=== PATIENT | female | born 1965 | race Hispanic/Latino ===

== ENCOUNTER 2018-05-28 16:29 | Observation (INO) | payer OTHER ==
[2018-05-28 17:15] LABS: Absolute Lymphocytes (CBC) 1.5 K/uL (0.7-4.9); Absolute Monocytes 0.9 K/uL (0.1-1.3); Absolute Neutrophil 7.2 K/uL (1.8-8.0); Basophils % 0.4 % (0-1.3); Eosinophils % 0.5 % (0-4.4); Lymphocytes % 15.5 % (15.3-44.8); MCH 28.6 pg (27.0-35.0); MCV 85.2 fL (80-100); MPV 8.4 fL (7.6-11.3); Monocytes % 9.3 % (3.3-12.3); RBC Red Blood Cell Count 5.28 M/uL (3.86-4.86)
[2018-05-28 17:19] LABS: Protime INR 1.01
[2018-05-28 17:34] LABS: ALT/SGPT 29 U/L (12-78); AST/SGOT 21 U/L (15-37); Albumin 3.9 g/dL (3.4-5.0); Alkaline Phosphatase 77 U/L (45-117); BUN Blood Urea Nitrogen 13 mg/dL (7-18); Bicarbonate 27 mmol/L (21-32); Bilirubin Direct 0.1 mg/dL (0-0.2); Bilirubin Total 0.5 mg/dL (0.2-1.0); Glucose Level 113 mg/dL (74-106); Magnesium 2.3 mg/dL (1.8-2.4); NT PRO-BNP 86 pg/mL (<125); Potassium 3.8 mmol/L (3.5-5.1); Protein, Total 7.6 g/dL (6.4-8.2); Sodium Level 141 mmol/L (136-145); Troponin (Emerg Dept Use Only) < 0.02 ng/mL (0.0-0.045)
--- NOTE | 2018-05-28 17:53 | RAD REPORT ---
EXAM DESCRIPTION: RAD - Chest Single View - 05/28/2018 5:34 pm CLINICAL HISTORY: COUGH Chest pain. COMPARISON: CHEST PA AND LAT 2 VIEW dated 05/05/2015; ABDOMEN 1 VIEW KUB dated 12/17/2014; CHEST PA A ND LAT 2 VIEW dated 09/18/2012 FINDINGS: Portable technique limits examination quality. The lungs are grossly clear. The heart is normal in size. No displaced fractures. IMPRESSION: No acute intrathoracic process suspected.
--- NOTE | 2018-05-28 17:54 | EDPHYS ---
Physician Documentation [facility] Name: Danita Yañez Age: 53 yrs Sex: Female : 1965 Arrival Date: 05/28/2018 Time: 16:34 Bed 6 Private MD: Paul Mcmahon ED Physician Spencer Warner HPI: 05/28 17:44 This 53 yrs old Female presents to ER via Ambulatory with complaints of High salas Blood Pressure. 17:44 The patient has elevated blood pressure and discovered this at home, at a physician's salas office. Onset: The symptoms/episode began/occurred 2 day(s) ago. Modifying factors: The symptoms are aggravated by activity, The symptoms are alleviated by remaining still. Severity of symptoms: At its worst the blood pressure was mild, moderate, in the emergency department the blood pressure is improved. The patient has not experienced similar symptoms in the past. CHILD CARE: 17:04 LMP N/A - Post-menopause bp Historical: - Allergies: 16:43 Ibuprofen; sv - Home Meds: 16:43 Clonidine Oral Q6H prn [Active]; Metoprolol Tartrate Oral 2 times per day [Active]; sv levothyroxine 75 mcg tab 1 tab once daily [Active]; - PMHx: 16:43 Thyroid problem; sv - PSHx: 16:43 Hysterectomy; sv - Immunization history:: Flu vaccine is up to date. - Social history:: Smoking status: Patient/guardian denies using tobacco. - Ebola Screening: : No symptoms or risks identified at this time. - Family history:: not pertinent. ROS: 17:44 Constitutional: Negative for fever, chills, and weight loss, Eyes: Negative for injury, salas pain, redness, and discharge, ENT: Negative for injury, pain, and discharge, Neck: Negative for injury, pain, and swelling, Respiratory: Negative for shortness of breath, cough, wheezing, and pleuritic chest pain, Abdomen/GI: Negative for abdominal pain, nausea, vomiting, diarrhea, and constipation, Back: Negative for injury and pain, : Negative for injury, bleeding, discharge, and swelling, MS/Extremity: Negative for injury and deformity, Skin: Negative for injury, rash, and discoloration, Neuro: Negative for headache, weakness, numbness, tingling, and seizure, Psych: Negative for depression, anxiety, suicide ideation, homicidal ideation, and hallucinations, Allergy/Immunology: Negative for hives, rash, and allergies, Endocrine: Negative for neck swelling, polydipsia, polyuria, polyphagia, and marked weight changes, Hematologic/Lymphatic: Negative for swollen nodes, abnormal bleeding, and unusual bruising. 17:44 Cardiovascular: Positive for chest pain. Exam: 17:44 Constitutional: This is a well developed, well nourished patient who is awake, alert, salas and in no acute distress. Head/Face: Normocephalic, atraumatic. Eyes: Pupils equal round and reactive to light, extra-ocular motions intact. Lids and lashes normal. Conjunctiva and sclera are non-icteric and not injected. Cornea within normal limits. Periorbital areas with no swelling, redness, or edema. ENT: Nares patent. No nasal discharge, no septal abnormalities noted. Tympanic membranes are normal and external auditory canals are clear. Oropharynx with no redness, swelling, or masses, exudates, or evidence of obstruction, uvula midline. Mucous membranes moist. Neck: Trachea midline, no thyromegaly or masses palpated, and no cervical lymphadenopathy. Supple, full range of motion without nuchal rigidity, or vertebral point tenderness. No Meningismus. Chest/axilla: Normal chest wall appearance and motion. Nontender with no deformity. No lesions are appreciated. Cardiovascular: Regular rate and rhythm with a normal S1 and S2. No gallops, murmurs, or rubs. Normal PMI, no JVD. No pulse deficits. Respiratory: Lungs have equal breath sounds bilaterally, clear to auscultation and percussion. No rales, rhonchi or wheezes noted. No increased work of breathing, no retractions or nasal flaring. Abdomen/GI: Soft, non-tender, with normal bowel sounds. No distension or tympany. No guarding or rebound. No evidence of tenderness throughout. Back: No spinal tenderness. No costovertebral tenderness. Full range of motion. Skin: Warm, dry with normal turgor. Normal color with no rashes, no lesions, and no evidence of cellulitis. MS/ Extremity: Pulses equal, no cyanosis. Neurovascular intact. Full, normal range of motion. Neuro: Awake and alert, GCS 15, oriented to person, place, time, and situation. Cranial nerves II-XII grossly intact. Motor strength 5/5 in all extremities. Sensory grossly intact. Cerebellar exam normal. Normal gait. Psych: Awake, alert, with orientation to person, place and time. Behavior, mood, and affect are within normal limits. 17:44 Musculoskeletal/extremity: DVT Exam: No signs of deep vein thrombosis. no pain, no swelling, no tenderness, negative Homans' sign noted on exam, no appreciated bluish discoloration, no erythema, no increased warmth. Vital Signs: 16:43 BP 126 / 59; Pulse 80; Resp 18; Pulse Ox 97% ; Weight 97.52 kg; Height 5 ft. 7 in. sv (170.18 cm); Pain 0/10; 16:50 BP 113 / 60; Pulse 74; Resp 16; Pulse Ox 95% ; bp 17:05 BP 104 / 62; Pulse 73; Resp 16; Pulse Ox 95% ; bp 19:30 BP 130 / 98; Pulse 75; Resp 17; Temp 98.9(O); Pulse Ox 99% on R/A; Pain 0/10; rr5 16:43 Body Mass Index 33.67 (97.52 kg, 170.18 cm) sv MDM: 16:48 Patient medically screened. [facility] 17:47 Data reviewed: vital signs, nurses notes, lab test result(s), EKG, radiologic studies, salas plain films. 05/28 16:48 Order name: Basic Metabolic Panel [facility] 05/28 16:48 Order name: CBC with Diff [facility] 05/28 16:48 Order name: LFT's [facility] 05/28 16:48 Order name: Magnesium [facility] 05/28 16:48 Order name: NT PRO-BNP [facility] 05/28 16:48 Order name: PT-INR [facility] 05/28 16:48 Order name: Troponin (emerg Dept Use Only) [facility] 05/28 17:16 Order name: CBC with Automated Diff; Complete Time: 17:43 [facility] 05/28 17:21 Order name: Urine Dipstick--Ancillary (enter results) 05/28 17:22 Order name: Protime (+INR); Complete Time: 17:43 [facility] 05/28 17:35 Order name: Basic Metabolic Panel; Complete Time: 17:43 [facility] 05/28 17:35 Order name: Liver (Hepatic) Function; Complete Time: 17:43 [facility] 05/28 17:35 Order name: Troponin (Emerg Dept Use Only); Complete Time: 17:43 [facility] 05/28 17:35 Order name: NT PRO-BNP; Complete Time: 17:43 [facility] 05/28 16:48 Order name: XRAY Chest (1 view) [facility] 05/28 16:48 Order name: EKG; Complete Time: 16:49 [facility] 05/28 16:48 Order name: Cardiac monitoring; Complete Time: 17:04 [facility] 05/28 16:48 Order name: EKG - Nurse/Tech; Complete Time: 16:54 [facility] 05/28 16:48 Order name: IV Saline Lock; Complete Time: 17:04 [facility] 05/28 16:48 Order name: Labs collected and sent; Complete Time: 17:04 [facility] 05/28 16:48 Order name: O2 Per Protocol; Complete Time: 17:04 [facility] 05/28 17:35 Order name: Magnesium; Complete Time: 17:43 [facility] 05/28 17:43 Order name: TSH [facility] 05/28 17:43 Order name: D-Dimer [facility] 05/28 17:54 Order name: RAD; Complete Time: 18:07 [facility] 05/28 18:26 Order name: D-Dimer [facility] 05/28 18:35 Order name: Urine Dipstick-Ancillary [facility] 05/28 18:45 Order name: Thyroid Stimulating Hormone [facility] 05/28 16:48 Order name: O2 Sat Monitoring; Complete Time: 17:04 [facility] 05/28 16:51 Order name: Urine Dipstick-Ancillary (obtain specimen); Complete Time: 17:04 [facility] Administered Medications: 18:15 Drug: Pepcid 20 mg Route: IVP; Site: right forearm; bp 19:45 Follow up: Response: No adverse reaction rr5 18:16 Drug: Aspirin 162 mg Route: PO; bp 19:45 Follow up: Response: No adverse reaction rr5 Disposition: 05/28/18 17:52 Hospitalization ordered by rEwin Gomez for Observation. Preliminary diagnosis is Essential (primary) hypertension. - Bed requested for Telemetry/MedSurg (observation). - Status is Observation. rr5 - Condition is Stable. - Problem is new. - Symptoms have improved. UTI on Admission? No Signatures: Dispatcher [employer] EDWI Karmen Keller RN Spencer Blake MD MD cha Peltier, Brian, RN Marty Calhoun RN RN rr5 Hanna Burkett ar5 Corrections: (The following items were deleted from the chart) 19:25 17:52 Hospitalization Ordered by Erwin Gomez MD for Observation. Preliminary diagnosis ar5 is Essential (primary) hypertension. Bed requested for Telemetry/MedSurg (observation). Status is Observation. Condition is Stable. Problem is new. Symptoms have improved. UTI on Admission? No. salas 20:03 19:25 05/28/2018 17:52 Hospitalization Ordered by Erwin Gomez MD for Observation. rr5 Preliminary diagnosis is Essential (primary) hypertension. Bed requested for Telemetry/MedSurg (observation). Status is Observation. Condition is Stable. Problem is new. Symptoms have improved. UTI on Admission? No. ar5
--- NOTE | 2018-05-28 17:54 | ER ---
Nurse's Notes [facility] Name: Danita Yañez Age: 53 yrs Sex: Female : 1965 Arrival Date: 05/28/2018 Time: 16:34 Bed 6 Private MD: Paul Mcmahon Diagnosis: Essential (primary) hypertension Presentation: 05/28 16:40 Presenting complaint: Patient states: newly dx with HTN last week in the ER and then sv saw her PCP and was prescribed Metoprolol and Clonidine. Pt reports SBP over 200. Transition of care: patient was not received from another setting of care. Onset of symptoms was May 28, 2018. Care prior to arrival: None. 16:40 Method Of Arrival: Ambulatory sv 16:40 Acuity: CAESAR 3 sv 19:15 Risk Assessment: Do you want to hurt yourself or someone else? Patient reports no rr5 desire to harm self or others. Initial Sepsis Screen: Does the patient have a suspected source of infection? No. Patient's initial sepsis screen is negative. 19:15 Initial Sepsis Screen: Does the patient meet any 2 criteria? No. Patient's initial rr5 sepsis screen is negative. Triage Assessment: 16:44 General: Appears in no apparent distress. comfortable, Behavior is calm, cooperative, sv appropriate for age. Pain: Denies pain. Neuro: Level of Consciousness is awake, alert, obeys commands, Oriented to person, place, time, situation, Moves all extremities. Full function Gait is steady, Speech is normal. Respiratory: Respiratory effort is even, unlabored, Respiratory pattern is regular, symmetrical. 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 - Social history:: Smoking status: Patient/guardian denies using tobacco. - Ebola Screening: : No symptoms or risks identified at this time. - Family history:: not pertinent. Screenin:00 Abuse screen: Denies threats or abuse. Denies injuries from another. Nutritional bp screening: No deficits noted. Tuberculosis screening: No symptoms or risk factors identified. Fall Risk None identified. Assessment: 17:00 General: Appears in no apparent distress. comfortable, obese, Behavior is cooperative, bp appropriate for age, anxious, PT DIRECTED TO ER BY PCP 2/2 MX CALLS TO PCP OFFICE FOR SUBJECTIVE HYPERTENSION. NO OBJECTIVE FINDINGS. Pain: Denies pain. Neuro: Level of Consciousness is awake, alert, obeys commands, Oriented to person, place, time, situation, Appropriate for age. Cardiovascular: No deficits noted. Respiratory: Airway is patent Respiratory effort is even, unlabored, Respiratory pattern is regular, symmetrical. GI: No signs and/or symptoms were reported involving the gastrointestinal system. : No signs and/or symptoms were reported regarding the genitourinary system. EENT: No deficits noted. Derm: No deficits noted. Musculoskeletal: Circulation, motion, and sensation intact. Range of motion: intact in all extremities. 19:15 General: Appears in no apparent distress. comfortable, Behavior is cooperative, rr5 appropriate for age, anxious. 19:15 Pain: Denies pain. Neuro: Level of Consciousness is awake, alert, obeys commands, rr5 Oriented to person, place, time, situation, Appropriate for age. Cardiovascular: No deficits noted. Cardiovascular: Capillary refill < 3 seconds Patient's skin is warm and dry. Respiratory: Airway is patent Respiratory effort is even, unlabored, Respiratory pattern is regular, symmetrical. GI: Abdomen is round. : No signs and/or symptoms were reported regarding the genitourinary system. EENT: No signs and/or symptoms were reported regarding the EENT system. Derm: Skin is intact, Skin is dry, Skin is pink, warm \T\ dry. Skin temperature is warm. Musculoskeletal: Circulation, motion, and sensation intact. Capillary refill < 3 seconds, Range of motion: intact in all extremities. Vital Signs: 16:43 BP 126 / 59; Pulse 80; Resp 18; Pulse Ox 97% ; Weight 97.52 kg; Height 5 ft. 7 in. sv (170.18 cm); Pain 0/10; 16:50 BP 113 / 60; Pulse 74; Resp 16; Pulse Ox 95% ; bp 17:05 BP 104 / 62; Pulse 73; Resp 16; Pulse Ox 95% ; bp 19:30 BP 130 / 98; Pulse 75; Resp 17; Temp 98.9(O); Pulse Ox 99% on R/A; Pain 0/10; rr5 16:43 Body Mass Index 33.67 (97.52 kg, 170.18 cm) ED Course: 16:34 Patient arrived in ED. mr 16:35 Paul Mcmahon MD is Private Physician. mr 16:42 Triage completed. sv 16:44 Arm band placed on. sv 16:45 Paul Wells, RN is Primary Nurse. bp 16:47 Spencer Warner MD is Attending Physician. [facility] 16:57 EKG done, by nuclear test technician. reviewed by Spencer Warner MD. sm3 17:00 Patient has correct armband on for positive identification. Bed in low position. Call bp light in reach. Side rails up X2. Adult w/ patient. 17:00 Inserted saline lock: 20 gauge in right wrist, using aseptic technique. Blood collected.bp 17:49 Erwin Gomez MD is Hospitalizing Provider. salas 19:28 Kristin Keys, RN is Primary Nurse. lp1 19:34 No provider procedures requiring assistance completed. Patient admitted, IV remains in rr5 place. intact. Administered Medications: 18:15 Drug: Pepcid 20 mg Route: IVP; Site: right forearm; bp 19:45 Follow up: Response: No adverse reaction rr5 18:16 Drug: Aspirin 162 mg Route: PO; bp 19:45 Follow up: Response: No adverse reaction rr5 Outcome: 17:52 Decision to Hospitalize by Provider. salas 19:43 Admitted to Tele accompanied by tech, via wheelchair, Report called to [employer] [facility] rr5 19:43 Condition: stable 19:43 Instructed on the need for admit. 20:03 Patient left the ED. rr5 Signatures: Karmen Keller, RN Spencer Blake MD MD cha Rivera, Mary mr Kristin Keys, UNIQUE RN lp1 Paul Wells, Diana Monet RN [facility] Marty Alvarez RN RN rr5 Corrections: (The following items were deleted from the chart) 16:44 16:40 Acuity: CAESAR 2 [facility]
[2018-05-28] MEDS ORDERED: FAMOTIDINE 20 MG/2 ML VIAL IV ONE (18:06)
[2018-05-28] MEDS ORDERED: ASPIRIN 81 MG CHEWABLE TABLET ONE (18:06)
[2018-05-28 18:35] LABS: Urine Blood 1+ (NEG); Urine Glucose NEGATIVE (NEG); Urine Protein NEGATIVE (NEG)
[2018-05-28] MEDS ORDERED: ONDANSETRON 4 MG/2 ML VIAL IV PRN (19:59)
[2018-05-28 20:24] VITALS: BMI 33.5
--- NOTE | 2018-05-28 21:32 | P.HP ---
Certification for Inpatient Patient admitted to: Observation With expected LOS: <2 Midnights Practitioner: I am a practitioner with admitting privileges, knowledge of patient current condition, hospital course, and medical plan of care. Services: Services provided to patient in accordance with Admission requirements found in Title 42 Section 412.3 of the Code of Federal Regulations Patient History Date of Service: 05/28/18 Primary Care Provider: Dr. Mcmahon Reason for admission: High Blood pressure with chest discomfort History of Present Illness: This is a 53 yr old female with hx of thyroid disease admitted for elevated blood pressure. Patient states that she has a history of BP being elevated in the past, though she did not require any medications as she made lifestlye changes and quit energy drinks. For the past 1 week though, her BP has been elevated and this is her 3rd ER visit in the past week for elevated BP, WHATLEY and chest discomfort. She did visit her PCP after her 2nd ER visit (approx 4 daus ago) and she was started on clonidine and metoprolol. Per patient, she did start the medication but it has not been helping. She denies being on any blood pressure medications prior to this. In the ER, patient had elevated BP initially. At the time of my exam, she was AOX3, in no acute distress and her BP was 128/89. She denied any WHATLEY, chest discomfort at this time, no sob, dizziness, vision changes, GI or complaints. Allergies ibuprofen Allergy (Verified 05/28/18 21:16) Itching/Hives/Rash - Social History Smoking Status: Never smoker Alcohol use: Yes Review of Systems General: Unremarkable Eyes: Unremarkable ENT: Unremarkable Respiratory: Unremarkable Cardiovascular: Chest Pain, Palpitations, As per HPI Gastrointestinal: Unremarkable Genitourinary: Unremarkable Musculoskeletal: Unremarkable Integumentary: Unremarkable Neurological: As per HPI Lymphatics: Unremarkable Physical Examination - Vital Signs Temperature: 98.6 F Blood Pressure: 135/85 Pulse: 69 Respirations: 18 Pulse Ox (%): 96 - Physical Exam General: Alert, In no apparent distress, Oriented x3 HEENT: Atraumatic, PERRLA, Mucous membr. moist/pink, EOMI, Sclerae nonicteric Neck: Supple, 2+ carotid pulse no bruit, No LAD, Without JVD or thyroid abnormality Respiratory: Clear to auscultation bilaterally, Normal air movement Cardiovascular: Regular rate/rhythm, Normal S1 S2 Gastrointestinal: Normal bowel sounds, No tenderness Musculoskeletal: No tenderness Integumentary: No rashes Neurological: Normal speech, Normal strength at 5/5 x4 extr, Normal tone, Normal affect - Studies Laboratory Data (last 24 hrs) 05/28/18 16:55: PT 11.9, INR 1.01 05/28/18 16:55: WBC 9.7, Hgb 15.1 H, Hct 45.0, Plt Count 253 05/28/18 16:55: Sodium 141, Potassium 3.8, BUN 13, Creatinine 0.80, Glucose 113 H, Magnesium 2.3, Total Bilirubin 0.5, AST 21, ALT 29, Alkaline Phosphatase 77 Assessment and Plan - Plan This is a 53 yr old female with: Hypertensive urgency: BP now stable without any medications. She was recently started on clonidine and metoprolol at PCP office. Will monitor and may need to add medication though will likely change to an ACEi ( low dose lisinopril) Hydralazine prn SBP>160 or DBP>100 Trend troponins (1st set negative w/ no EKG changes) Cardiology consulted Hypothyroid Will restart home medication once reconciled. DVT prophylaxis: Lovenox GI prophylaxis: Not needed Diet: Heart healthy/Renal Disposition: OBS on floor w/ tele. Pending symptomatic improvement. Discharge Plan: Home Plan to discharge in: 48 Hours - Advance Directives Does patient have a Living Will: No Does patient have a Durable POA for Healthcare: No Physician Review: Patient Assessed, Agree with Above Assessment and Plan Time Spent Managing Pts Care (In Minutes): 45
--- NOTE | 2018-05-28 22:03 | EKG ---
Test Date: 2018-05-28 Test Time: 16:54:35 Supervisor Landscape: DANITA MEASUREMENT RESULTS: Intervals: Rate: 73 IA: 164 QRSD: 104 QT: 372 QTc: 409 [place]: P: 44 IA: 164 QRS: -37 T: 37 INTERPRETIVE STATEMENTS: Normal sinus rhythm Left axis deviation Abnormal ECG No previous ECG available for comparison Electronically Signed On 05-28-18 22:03:00 PATIENT INTAKE REPRESENTATIVE by Dash Casey
[2018-05-29 05:09] LABS: Absolute Lymphocytes (CBC) 2.6 K/uL (0.7-4.9); Absolute Monocytes 0.8 K/uL (0.1-1.3); Absolute Neutrophil 4.5 K/uL (1.8-8.0); Basophils % 0.6 % (0-1.3); Eosinophils % 1.3 % (0-4.4); Hematocrit 42.5 % (36.0-45.0); Lymphocytes % 32.1 % (15.3-44.8); MCH 28.8 pg (27.0-35.0); MCV 84.8 fL (80-100); MPV 8.1 fL (7.6-11.3); Monocytes % 10.1 % (3.3-12.3); RBC Red Blood Cell Count 5.01 M/uL (3.86-4.86)
[2018-05-29 05:23] LABS: Albumin 3.5 g/dL (3.4-5.0); Bilirubin Total 0.4 mg/dL (0.2-1.0); Phosphorus 4.1 mg/dL (2.5-4.9); Potassium 4.5 mmol/L (3.5-5.1); Protein, Total 6.9 g/dL (6.4-8.2)
--- NOTE | 2018-05-29 10:48 | P.PN ---
Subjective Date of Service: 05/29/18 Primary Care Provider: Dr. Mcmahon Chief Complaint: High Blood pressure with chest discomfort Subjective: No new changes, No C/O voiced, Improving Patient seen and examined at bedside. No family at bedside. Chart reviewed and Case discussed with nursing staff. Patient reports having a good night, chest pain has resolved. She is doing much better. Blood pressures remained stable overnight without any medications. No new concerns or complaints this morning Review of Systems As noted Physical Examination - Vital Signs Temperature: 97.0 F Blood Pressure: 116/56 Pulse: 59 Respirations: 18 Pulse Ox (%): 98 - Physical Exam General: Alert, In no apparent distress, Oriented x3 HEENT: Atraumatic, PERRLA, EOMI Neck: Supple, JVD not distended Respiratory: Clear to auscultation bilaterally, Normal air movement Cardiovascular: Regular rate/rhythm, Normal S1 S2 Gastrointestinal: Normal bowel sounds, No tenderness Musculoskeletal: No tenderness Integumentary: No rashes Neurological: Normal speech, Normal tone, Normal affect Lymphatics: No axilla or inguinal lymphadenopathy - Studies Laboratory Data (last 24 hrs) 05/28/18 16:55: PT 11.9, INR 1.01 05/28/18 16:55: WBC 9.7, Hgb 15.1 H, Hct 45.0, Plt Count 253 05/28/18 16:55: Sodium 141, Potassium 3.8, BUN 13, Creatinine 0.80, Glucose 113 H, Magnesium 2.3, Total Bilirubin 0.5, AST 21, ALT 29, Alkaline Phosphatase 77 Assessment And Plan - Plan This is a 53 yr old female with: Hypertensive urgency: BP now stable without any medications. She was recently started on clonidine and metoprolol at PCP office. Last dosage was 4:00 p.m. yesterday, monitor blood pressure for any rebound affects. Will monitor and may need to add medication though will likely change to an ACEi (low dose lisinopril) Hydralazine prn SBP>160 or DBP>100 Renal Doppler ordered to evaluate for possible secondary causes of elevated blood pressures. Chest pain, rule out Cardiology consulted. Recommendations appreciated. Pending stress test tomorrow. Hypothyroid Will restart home medication, levothyroxine at 75mcg. DVT prophylaxis: Lovenox GI prophylaxis: Not needed Diet: Heart healthy/Renal Disposition: OBS on floor w/ tele. Pending symptomatic improvement. Pending stress test tomorrow. If negative, likely discharge tomorrow. Discharge Plan: Home Physician Review: Patient Assessed, Agree with Above Assessment and Plan Time Spent Managing PTS Care (In Minutes): 35
[2018-05-29] MEDS: ENOXAPARIN 40 MG/0.4 ML SQ SCH (11:44)
[2018-05-29] MEDS: ACETAMINOPHEN 500 MG TAB PO PRN ×2 (14:03→18:42)
--- NOTE | 2018-05-29 20:09 | CON ---
Date of Consultation: 05/29/2018 Reason For Consultation: Hypertensive crisis. History Of Present Illness: Ms. Yañez is a 53-year-old woman with new onset hypertension, has a history of hypothyroidism for which she takes Synthroid medication. She was recently found to be miya y hypertensive and was started on clonidine and metoprolol. Comes back to the emergency room with a blood pressure of 202/110. No cardiac symptoms. No headache. No visual changes. No stroke-like sy mptoms. Denied PND, orthopnea, pedal edema, palpitations, or syncope. Past Medical History: Includes hypertension and hypothyroidism. Allergies: SHE IS ALLERGIC TO IBUPROFEN. Review of Systems: Negative. Social History: Negative for tobacco, drugs, or alcohol use. She does use some caffeine. Medications: Presently include clonidine, metoprolol, and Synthroid. Physical Examination: Vital Signs: Stable. Afebrile. HEENT: Negative. Neck: Supple. No bruit. Chest: Clear to auscultation and percussion. Cardiac: Regular rhythm and rate with S4 gallops. No murmurs or rubs. Abdomen: Benign. Extremities: Revealed no clubbing, cyanosis, or edema. Diagnostic Data: All normal. Impression And Plan: Hypertensive crisis, unknown etiology. Thyroid is controlled. I agree with cl onidine p.r.n. I think the metoprolol should be on a regular basis. We should probably put her on H yzaar and Norvasc in addition to those, and I think this will control her pressure. I would like her to get an echocardiogram and a renal Doppler and a Lexiscan, and we will see what these show before making further decisions. JONEL/KATHRYN Voice ID: [id number] Report ID: [id number]
--- NOTE | 2018-05-29 20:36 | RAD REPORT ---
EXAM DESCRIPTION: US - Abdomen Pelvis Scan US - 05/29/2018 8:27 pm CLINICAL HISTORY: Hypertension COMPARISON: None FINDINGS: Right kidney measures 11 centimeters with a normal echotexture Left kidney measures 11 centimeters with a normal echotexture Hydronephrosis is not seen The velocity of the right renal artery 125 centimeters/seconds. The velocity of the left renal artery 110 centimeters/seconds. Renal artery/aorta ratios within normal limits IMPRESSION: No sonographic evidence of renal arterial hypertension
[2018-05-30 06:29] LABS: Absolute Lymphocytes (CBC) 2.6 K/uL (0.7-4.9); Absolute Monocytes 0.8 K/uL (0.1-1.3); Basophils % 0.4 % (0-1.3); Eosinophils % 1.4 % (0-4.4); Hematocrit 43.5 % (36.0-45.0); Lymphocytes % 30.7 % (15.3-44.8); MCH 28.5 pg (27.0-35.0); MCV 84.5 fL (80-100); MPV 8.3 fL (7.6-11.3); Monocytes % 9.5 % (3.3-12.3); RBC Red Blood Cell Count 5.14 M/uL (3.86-4.86)
[2018-05-30] MEDS ORDERED: LEVOTHYROXINE SOD 0.075 MG TAB PO SCH (06:30)
[2018-05-30 06:45] LABS: Albumin 3.6 g/dL (3.4-5.0); Bilirubin Total 0.6 mg/dL (0.2-1.0); Potassium 3.7 mmol/L (3.5-5.1)
--- NOTE | 2018-05-30 07:33 | ECHO ---
HEIGHT: 5 ft 7 in WEIGHT: 213 lb 14.4 oz DATE OF STUDY: 05/29/[address]: Spencer aWrner MD 2-DIMENSIONAL: YES M.MODE: YES DOPPLER: YES COLOR FLOW: YES TDS: PORTABLE: DEFINITY: BUBBLE STUDY: DIAGNOSIS: CHEST PAIN CARDIAC HISTORY: CATHERIZATION: NO SURGERY: NO PROSTHETIC VALVE: NO PACEMAKER: NO MEASUREMENTS (cm) DIASTOLIC (NORMALS) SYSTOLIC (NORMALS) IVSd 1.1 (0.6-1.2) LA Diam 3.1 (1.9-4.0) LVEF 63% LVIDd 3.2 (3.5-5.7) LVIDs 2.1 (2.0-3.5) %FS 33% LVPWd 1.1 (0.6-1.2) Ao Diam 2.9 (2.0-3.7) 2 DIMENSIONAL ASSESSMENT: RIGHT ATRIUM: NORMAL LEFT ATRIUM: NORMAL RIGHT VENTRICLE: NORMAL LEFT VENTRICLE: NORMAL TRICUSPID VALVE: NORMAL MITRAL VALVE: NORMAL PULMONIC VALVE: NORMAL AORTIC VALVE: NORMAL PERICARDIAL EFFUSION: NONE AORTIC ROOT: NORMAL LEFT VENTRICULAR WALL MOTION: NORMAL DOPPLER/COLOR FLOW: NORMAL COMMENTS: NORMAL 2-DIMENSIONAL ECHOCARDIOGRAM WITH DOPPLER. NO WALL MOTION ABNORMALITY. NO EFFUSION. TECHNOLOGIST: SIM SOTELO
[2018-05-30] MEDS ORDERED: REGADENOSON 0.4 MG/5 ML SYR IV ONE (07:47)
--- NOTE | 2018-05-30 09:32 | RAD REPORT ---
EXAM DESCRIPTION: NM - Rest Stress Cardiac Imaging - 05/30/2018 9:21 am CLINICAL HISTORY: Chest pain. COMPARISON: None. TECHNIQUE: The patient was administered approximately 10mCi of Tc 99m Sestamibi prior to resting SPE CT imaging of the heart. The patient was then administered approximately 30 mCi of Tc 99m Sestamibi f ollowing exercise or pharmacologic stress. Multiplanar SPECT images were reviewed. FINDINGS: Small to moderate area of diminished radiotracer uptake involves the inferior left ventri cular myocardium on rest and stress images. The left ventricular ejection fraction equals 60% IMPRESSION: Small to moderate apparent fixed perfusion defect involving the inferior left ventricula r myocardium probably is secondary to attenuation from the diaphragm. No evidence of stress-induced ischemia
[2018-05-30 10:56] VITALS: BP 131/80; TEMP 98
--- NOTE | 2018-05-30 10:57 | TREADPHA ---
DX: CHEST PAIN Date of Study: 05/30/2018 Ht: 5 7 Wt: 213 lb 14.4 oz Consulting Physician: ALESHA MEDICATIONS: TYLENOL, LOVENOX, SYTHROID, ZOFRAN, LEXISCAN. HISTORY: 53 YEAR OLD FEMALE WITH COMPLAINTS OF CHEST PAIN. MEDICAL HISTORY: THYTROID PROBLEM. PHYSICIAL EXAMINATION: RESTING B.P.: 123/69 RESTING H.R.: 66 RESTING EKG: NORMAL PROTOCOL: LEXISCAN EXERCISE TIME: 3:30 B.P. AT PEAK STRESS: 122/70 IMPRESSION: LEXISCAN INJECTED, CARDIOLITE INJECTED PER PROTOCOL. SEE NUCLEAR MEDICINE REPORT. NO SUPRAVENTRICULAR TACHYCARDIA. NO VENTRICULAR TACHYCARDIA. NO PREMATURE VENTRICULAR COMPLEXES. DENIED CHEST PAIN. NON-DIAGNOSTIC ELECTROCARDIOGRAM WITH LEXISCAN STRESS.
[2018-05-30] MEDS: ACETAMINOPHEN 500 MG TAB PO PRN (10:59)
[2018-05-30] MEDS: ENOXAPARIN 40 MG/0.4 ML SQ SCH (11:00)
--- NOTE | 2018-05-30 16:19 | P.DS ---
Admission Date: 05/28/18 Discharge Date: 05/30/18 Primary Care Provider: Dr. Mcmahon Disposition: ROUTINE DISCHARGE Discharge Condition: GOOD Reason for Admission: High Blood pressure with chest discomfort Consultations: Cardiology Procedures: 05/29/2018: Echocardiogram, normal 05/29/2018: Renal ultrasound, normal 05/30/2018: Stress test, negative Brief History of Present Illness: This is a 53 yr old female with hx of thyroid disease admitted for elevated blood pressure. Patient states that she has a history of BP being elevated in the past, though she did not require any medications as she made lifestlye changes and quit energy drinks. For the past 1 week though, her BP has been elevated and this is her 3rd ER visit in the past week for elevated BP, WHATLEY and chest discomfort. She did visit her PCP after her 2nd ER visit (approx 4 daus ago) and she was started on clonidine and metoprolol. Per patient, she did start the medication but it has not been helping. She denies being on any blood pressure medications prior to this. In the ER, patient had elevated BP initially. At the time of my exam, she was AOX3, in no acute distress and her BP was 128/89. She denied any WHATLEY, chest discomfort at this time, no sob, dizziness, vision changes, GI or complaints. Hospital Course: Hypertensive urgency: Blood pressure remained stable throughout the hospitalization, the low normal and. Cardiology was consulted. Echocardiogram was done, which was normal. Stress test was done, which was normal. She did not require any blood pressure medications throughout the hospitalization. Renal Doppler was also done, which was negative for any abnormalities. Discharge instructions: Recommended to discontinue clonidine and metoprolol. Prescription for lisinopril/hydrochlorothiazide 10-12.5 mg sent to pharmacy. Advised to check blood pressure twice a day for the next week. Advised not to take medication if blood pressure below 100/60 or symptomatic. Record blood pressures on a log, take to primary care physician appointment in 1 week to make further recommendations/evaluation for blood pressure medications. It seems that blood pressure and heart rate may be related to anxiety. She does seem to have some anxiety and wants to check her blood pressure heart rate every so often, which makes her more anxious. Educated patient on how to check blood pressure and when. She was instructed to follow up with her primary care physician in 1 week with her blood pressure logs. Chest pain, rule out Cardiology workup negative. Chest pain resolved Hypothyroid Stable on levothyroxine 75 mcg. No changes made to medication at time of discharge. Vital Signs/Physical Exam: Temp Pulse Resp BP Pulse Ox 98.0 F 80 22 H 131/80 98 05/30/18 12:00 05/30/18 12:00 05/30/18 12:00 05/30/18 12:00 05/30/18 12:00 General: Alert, In no apparent distress, Oriented x3 HEENT: Atraumatic, PERRLA, EOMI Neck: Supple, JVD not distended Respiratory: Clear to auscultation bilaterally, Normal air movement Cardiovascular: Regular rate/rhythm, Normal S1 S2 Gastrointestinal: Normal bowel sounds, No tenderness Musculoskeletal: No tenderness Integumentary: No rashes Neurological: Normal speech, Normal tone, Normal affect Lymphatics: No axilla or inguinal lymphadenopathy Laboratory Data at Discharge: WBC 8.6 K/uL (4.3-10.9) 05/30/18 05:39 Hgb 14.7 g/dL (12.0-15.0) 05/30/18 05:39 Hct 43.5 % (36.0-45.0) 05/30/18 05:39 Plt Count 257 K/uL (152-406) 05/30/18 05:39 PT 11.9 SECONDS (9.5-12.5) 05/28/18 16:55 INR 1.01 05/28/18 16:55 Sodium 142 mmol/L (136-145) 05/30/18 05:39 Potassium 3.7 mmol/L (3.5-5.1) 05/30/18 05:39 BUN 18 mg/dL (7-18) 05/30/18 05:39 Creatinine 0.80 mg/dL (0.55-1.3) 05/30/18 05:39 Glucose 92 mg/dL (74-106) 05/30/18 05:39 Phosphorus 4.1 mg/dL (2.5-4.9) 05/29/18 04:40 Magnesium 2.3 mg/dL (1.8-2.4) 05/28/18 16:55 Total Bilirubin 0.6 mg/dL (0.2-1.0) 05/30/18 05:39 AST 18 U/L (15-37) 05/30/18 05:39 ALT 26 U/L (12-78) 05/30/18 05:39 Alkaline Phosphatase 71 U/L (45-117) 05/30/18 05:39 Troponin I < 0.02 ng/mL (0.0-0.045) 05/29/18 09:05 Home Medications: Levothyroxine [Synthroid*] 0.075 mcg PO DAILY 05/28/18 Lisinopril/Hydrochlorothiazide [Zestoretic 10-12.5 mg Tablet] 1 each PO DAILY # 30 tablet 05/30/18 New Medications: Lisinopril/Hydrochlorothiazide [Zestoretic 10-12.5 mg Tablet] 1 each PO DAILY # 30 tablet Patient Discharge Instructions: Please follow up with your primary care physician in 1 week. You were admitted for hypertensive urgency, though your blood pressures remained in the low normal range throught out the hospitalization without any medications. I have sent a prescription for a blood pressure medication called lisinopril-Hydrochlorothiazide 10-12.5 mg to your pharmacy. As we spoke, please check your blood pressure at home twice a day and record it on a log sheet so you can take it with you to your primary care physician in 1 week. If your blood pressure is lower than 100/60, or you have dizziness, generalized weakness, please stop the medication and call your doctor. Diet: Regular Activity: Ad anthony Followup: Dilip Chavez MD [ACTIVE - CAN ADMIT] - Paul Mcmahon MD [Primary Care Provider] - Physician Review: Patient Assessed, Agree with Above Assessment and Plan Time spent managing pt's care (in minutes): 55
[2018-05-30 16:28] VITALS: O2SAT 94
== END 2018-05-30 16:05 | disposition home or self-care (01) ==
LOC: ER 16:29 → ERHOLD 17:54 → 4TH 19:46
PROVIDERS: ADMIT Family Medicine; ATTEND Family Medicine
DX: I16.0 Hypertensive urgency (principal); R07.9 Chest pain, unspecified; E03.9 Hypothyroidism, unspecified
CPT/HCPCS: 36415; 71045; 78452; 80048; 80053; 80076; 81003; 83735; 83880; 84100; 84443; 84484; 85025; 85379; 85610; 93005; 93017; 93306; 93975; 94760; 96374; 99285; A9500; G0378; J1650; J2785

== ENCOUNTER 2023-09-17 04:31 | Inpatient (IN) | payer OTHER, SELFPAY ==
--- OUTSIDE RECORDS SUMMARY | 2023-09-17 04:36 | XMS REPORT | Continuity of Care Document ---
Author Name Unknown Address [address] [facility] [address] [place] [address] [facility] thconnect Address [address] [facility] [place] [address] Care Team Providers Care Teen Counselor Name Role Phone PAULINA MEDINA Primary Care Physician Unavailab YONG Dawkins Attending Clinician Unavailable Yong Lizraraga DO Attending Clinician [phone] MANNY SLATER Attending Clinician Unavaila MANNY Hines Attending Clinician Unavaila GEOVANNY Castrejon Attending Clinician GEOVANNY Garza Attending Clinician PAULINA Dumont Attending Clinician Unava ilable JOVITATERRI MCKAY Attending Clinician Unavailable [facility]90 Attending Clinician Unavailable Paulina Medina MD Attending Clinician [phone] INFUSION, KAHLIL Attending Clinician Unavailable LEYDI AVINA Attending Clinician Unavailable MAICOL LOPEZ Attending Clinician Unavaila ble Infusion, Kahlil Attending Clinician Unavailable IVT, KAHLIL Attending Clinician Unavailable JUAN MANUEL GREEN Attending Clinician Unavailable MARCO JACOB Attending Clinician Unavailable MERARY VELASQUEZ Attending Clinician UnavailGARRETT Cobb Attending Clinician Unavailable [facility]39 Attending Clinician Unavailable Jovita Terri FAIRCHILD Attending Clinician [phone] Ivt, Kahlil Attending Clinician Unavailable DARLENE JEFF Attending Clinician Unavailable LANDEN HARRIS Attending Clinician Unavailable YONG LIZARRAGA Admitting Clinician Unavailable MANNY SLATER Admitting Clinician Unavaila ble Payers Payer Name Policy Type Policy Number Effective Date Expirati on Date Source HIM GABRIEL FROM [facility] [id number] 2023 00:00:00 [facility] [id number] 2022 00:00:00 [facility] 3 [id number] 2022 00:00:00 Problems Condition Name Condition Details Condition Category Status Onset Date Resolution Date Last Treatment Date Treating Clinician Comments Source Well woman exam with routine gynecologi tori exam Well woman exam with routine gynecologi tori exam Disease Active 2021-07 00:00: 00 [facility] BMI 33.0-33.9, adult BMI 33.0-33.9, adult Disease Active 2021-07 00:00: 00 [facility] 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 11-26 00:00: 00 [facility] Seasonal allergies Seasonal allergies Disease Active 11-26 00:00: 00 [facility] PND (post-nasa l drip) PND (post-nasa l drip) Disease Active 11-26 00:00: 00 Monika Silva Essential hypertensi on Essential hypertensi on Disease Active 2017-07 00:00: 00 [facility] Hypothyroi dism Hypothyroi dism Disease Active 2017-07 00:00: 00 [facility] Allergies, Adverse Reactions, Alerts Allergy Name Allergy Type Status Severity Reaction(s) Onset Date Inactive Date Treating Clinician Comments Source Ibuprofe n Propensi ty to adverse reaction s Active Itching 12-27 00:00: 00 [facility] IBUPROFE N DRUG INGREDI Active Low ITCHING 12-27 00:00: 00 [facility] NO KNOWN ALLERGIE S Drug Class Active [facility] Social History Social Habit Start Date Stop Date Quantity Comments Source History of tobacco use Passive smoker [facility] intake 2023-09-11 00:00:00 2023-09-11 00:00:00 Current drinker of alcohol (finding) [facility] History of Social function 2023-09-11 00:00:00 2023-09-11 00:00:00 [facility] Exposure to SARS-CoV-2 (event) 2022-06-12 00:00:00 2022-06-22 09:28:00 Not sure [facility] Tobacco use and exposure 2022-06-21 00:00:00 2022-06-21 00:00:00 Smokeless tobacco non-user [facility] Alcohol Comment 2022-06-21 00:00:00 2022-06-21 00:00:00 socially [facility] Sex Ass[birth year] At 1965 00:00:00 1965 00:00:00 [facility] Smoking Status Start Date Stop Date Source Never smoked tobacco [facility] Medications Ordered Medication Name Filled Medication Name Start Date Stop Date Current Medication? Ordering Clinician Indication Dosage Frequency Signature (SIG) Comments Components Source piperacilli n-tazobacta m (ZOSYN) 3.375 g in NaCl 0.9% (NS) 100 mL MINI-BAG 09-10 11:15: 00 09-10 11:50 :00 No 3.375g 3.375 g, IV Piggyback, ONCE, 1 dose, On Mon09/11/23 at 0515, Administer over 30 Minutes, 100 mL
Reas on for Anti-Infec tive: Empiric Therapy for Suspected Infection< br>Empiric Therapy Site: Abdominal< br>Duratio n of therapy: Once (ED) [facility] iopamidol (ISOVUE 370-500 mL) injection 100 mL 09-10 11:15: 00 09-10 11:15 :00 No [id number] 100mL 100 mL, Intravenou s, ONCE, 1 dose, On Mon09/11/23 at 0515, Routine [facility] ondansetron (ZOFRAN (PF)) injection 4 mg 09-10 10:15: 00 09-10 09:10 :00 No 4mg 4 mg, Slow IV Push, ONCE, 1 dose, On Mon09/11/23 at 0415, Routine [facility] NaCl 0.9% (NS) bolus infusion 1,000 mL 09-10 09:15: 00 09-10 11:12 :00 No 1000mL at 999 mL/hr, 1,000 mL, IV Infusion, ONCE, 1 dose, On Mon09/11/23 at 0315, STAT [facility] ciprofloxac in HCl 500 mg tablet 09-10 00:00: 00 Yes [id number] 500mg Take 1 tablet by mouth in the morning and 1 tablet in the evening. [facility] metroNIDAZO LE 500 mg tablet 09-10 00:00: 00 Yes [id number] 500mg Take 1 tablet by mouth in the morning and 1 tablet in the evening. [facility] ondansetron 4 mg disintegrat ing tablet 09-10 00:00: 00 Yes [id number] 4mg Take 1 tablet by mouth every 8 (eight) hours as needed for Nausea and Vomiting (N/V). [facility] Cholecalcif sorin, Vitamin D3, 125 mcg (5,000 unit) capsule 2021-07 10:31: 25 Yes 1{capsu le} Take 1 capsule by mouth. [facility] Bacillus coagulans-I nulin 1 billion-250 cell-mg Cap 2021-07 10:31: 25 Yes 1{capsu le} Take 1 capsule by mouth. [facility] vitamin C with kayla hips 1,000 mg tablet 2021-07 10:31: 25 Yes 1000mg Take 1,000 mg by mouth. [facility] Cholecalcif sorin, Vitamin D3, 125 mcg (5,000 unit) capsule 2021-07 10:31: 25 Yes 1{capsu le} Take 1 capsule by mouth. [facility] Bacillus coagulans-I nulin 1 billion-250 cell-mg Cap 2021-07 10:31: 25 Yes 1{capsu le} Take 1 capsule by mouth. [facility] vitamin C with kayla hips 1,000 mg tablet 2021-07 10:31: 25 Yes 1000mg Take 1,000 mg by mouth. [facility] Cholecalcif sorin, Vitamin D3, 125 mcg (5,000 unit) capsule 2021-07 10:31: 25 Yes 1{capsu le} Take 1 capsule by mouth. [facility] Bacillus coagulans-I nulin 1 billion-250 cell-mg Cap 2021-07 10:31: 25 Yes 1{capsu le} Take 1 capsule by mouth. [facility] vitamin C with kayla hips 1,000 mg tablet 2021-07 10:31: 25 Yes 1000mg Take 1,000 mg by mouth. [facility] Cholecalcif sorin, Vitamin D3, 125 mcg (5,000 unit) capsule 2021-07 10:31: 25 Yes 1{capsu le} Take 1 capsule by mouth. [facility] Bacillus coagulans-I nulin 1 billion-250 cell-mg Cap 2021-07 10:31: 25 Yes 1{capsu le} Take 1 capsule by mouth. [facility] vitamin C with kayla hips 1,000 mg tablet 2021-07 10:31: 25 Yes 1000mg Take 1,000 mg by mouth. [facility] aspirin 81 mg EC tablet 2021-07 10:31: 08 06-21 00:00 :00 No 81mg Take 81 mg by mouth. [facility] aspirin 81 mg EC tablet 2021-07 10:31: 08 06-21 00:00 :00 No 81mg Take 81 mg by mouth. [facility] amLODIPine 5 mg tablet 2021-07 00:00: 00 Yes [facility] amLODIPine 5 mg tablet 2021-07 00:00: 00 Yes [facility] amLODIPine 5 mg tablet 2021-07 00:00: 00 Yes [facility] amLODIPine 5 mg tablet 2021-07 00:00: 00 Yes [facility] Aspirin 81 MG oral Tablet Delayed Response 11-19 09:31: 35 Yes 81mg Take 81 mg by mouth daily Monika Silva Zinc 50 MG oral Capsule 11-19 09:31: 35 Yes 1{capsu le} Take 1 capsule by mouth 3 times a week Monika Silva Ascorbic Acid (Vitamin C) 1000 MG oral Tablet 11-19 09:31: 35 Yes 1000mg Take 1,000 mg by mouth daily 3 times a week Monika Silva Cholecalcif sorin (Vitamin D3 Maximum Strength) 125 MCG (5000 UT) oral Capsule 11-19 09:31: 35 Yes 1{capsu le} Take 1 capsule by mouth 3 times a week Monika Silva Bacillus Coagulans-I nulin (Probiotic) 1-250 BILLION-MG oral Capsule 11-19 09:31: 35 Yes 1{capsu le} Take 1 capsule by mouth 3 times a week Monika Silva Aspirin 81 MG oral Tablet Delayed Response 11-19 09:31: 35 Yes 81mg Take 81 mg by mouth daily Monika Silva Zinc 50 MG oral Capsule 11-19 09:31: 35 Yes 1{capsu le} Take 1 capsule by mouth 3 times a week Monika Silva Ascorbic Acid (Vitamin C) 1000 MG oral Tablet 11-19 09:31: 35 Yes 1000mg Take 1,000 mg by mouth daily 3 times a week Monika Silva Cholecalcif sorin (Vitamin D3 Maximum Strength) 125 MCG (5000 UT) oral Capsule 11-19 09:31: 35 Yes 1{capsu le} Take 1 capsule by mouth 3 times a week Monika Silva Bacillus Coagulans-I nulin (Probiotic) 1-250 BILLION-MG oral Capsule 11-19 09:31: 35 Yes 1{capsu le} Take 1 capsule by mouth 3 times a week Monika Silva levothyroxi ne 75 mcg tablet 11-19 00:00: 00 Yes 75ug Take 75 mcg by mouth. [facility] levothyroxi ne 75 mcg tablet 11-19 00:00: 00 Yes 75ug Take 75 mcg by mouth. [facility] levothyroxi ne 75 mcg tablet 11-19 00:00: 00 Yes 75ug Take 75 mcg by mouth. [facility] levothyroxi ne 75 mcg tablet 11-19 00:00: 00 Yes 75ug Take 75 mcg by mouth. [facility] Amlodipine Besylate 5 MG oral Tablet 11-19 00:00: 00 Yes [id number] 5mg Take 1 tablet (5 mg total) by mouth daily Monika Silva Levothyroxi ne Sodium 75 MCG oral Tablet 11-19 00:00: 00 Yes [id number] 75ug Take 1 tablet (75 mcg total) by mouth daily Monika Silva Amlodipine Besylate 5 MG oral Tablet 11-19 00:00: 00 Yes [id number] 5mg Take 1 tablet (5 mg total) by mouth daily Monika Silva Levothyroxi ne Sodium 75 MCG oral Tablet 11-19 00:00: 00 Yes [id number] 75ug Take 1 tablet (75 mcg total) by mouth daily Monika Silva guaiFENesin -Codeine (Cheratussi n AC) 100-10 MG/5ML oral Syrup 11-09 00:00: 00 11-19 00:00 :00 No 10mL Take 10 mL by mouth at bedtime as needed Monika Silva Aspirin 81 MG oral Tablet Delayed Response 11-06 12:17: 42 Yes 81mg Take 81 mg by mouth daily Monika Silva Zinc 50 MG oral Capsule 11-06 12:17: 42 Yes 1{capsu le} Take 1 capsule by mouth 3 times a week Monika Silva Ascorbic Acid (Vitamin C) 1000 MG oral Tablet 11-06 12:17: 42 Yes 1000mg Take 1,000 mg by mouth daily 3 times a week Monika Silva Cholecalcif sorin (Vitamin D3 Maximum Strength) 125 MCG (5000 UT) oral Capsule 11-06 12:17: 42 Yes 1{capsu le} Take 1 capsule by mouth 3 times a week Monika Silva Bacillus Coagulans-I nulin (Probiotic) 1-250 BILLION-MG oral Capsule 11-06 12:17: 42 Yes 1{capsu le} Take 1 capsule by mouth 3 times a week Monika Silva Levothyroxi ne Sodium 75 MCG oral Tablet 10-28 00:00: 00 Yes [id number] 75ug Take 1 tablet (75 mcg total) by mouth daily Monika Silva Levothyroxi ne Sodium 75 MCG oral Tablet 10-28 00:00: 00 11-19 00:00 :00 No [id number] 75ug Take 1 tablet (75 mcg total) by mouth daily Monika Silva Amlodipine Besylate 5 MG oral Tablet 10-22 00:00: 00 Yes [id number] 5mg Take 1 tablet (5 mg total) by mouth daily Monika Silva Amlodipine Besylate 5 MG oral Tablet 10-22 00:00: 00 11-19 00:00 :00 No [id number] 5mg Take 1 tablet (5 mg total) by mouth daily Monika Silva Zinc 50 MG oral Capsule 2020-07 15:01: 34 Yes 1{capsu le} Take 1 capsule by mouth 3 times a week Monika Silva Ascorbic Acid (Vitamin C) 1000 MG oral Tablet 2020-07 15:01: 34 Yes 1000mg Take 1,000 mg by mouth daily 3 times a week Monika Silva Cholecalcif sorin (Vitamin D3 Maximum Strength) 125 MCG (5000 UT) oral Capsule 2020-07 15:01: 34 Yes 1{capsu le} Take 1 capsule by mouth 3 times a week Monika Silav Bacillus Coagulans-I nulin (Probiotic) 1-250 BILLION-MG oral Capsule 2020-07 15:01: 34 Yes 1{capsu le} Take 1 capsule by mouth 3 times a week Monika Silva Zinc 50 MG oral Capsule 2020-07 15:01: 34 Yes 1{capsu le} Take 1 capsule by mouth 3 times a week Monika Silva Ascorbic Acid (Vitamin C) 1000 MG oral Tablet 2020-07 15:01: 34 Yes 1000mg Take 1,000 mg by mouth daily 3 times a week Monika Silva Cholecalcif sorin (Vitamin D3 Maximum Strength) 125 MCG (5000 UT) oral Capsule 2020-07 15:01: 34 Yes 1{capsu le} Take 1 capsule by mouth 3 times a week Monika Silva Bacillus Coagulans-I nulin (Probiotic) 1-250 BILLION-MG oral Capsule 2020-0708 15:01: 34 Yes 1{capsu le} Take 1 capsule by mouth 3 times a week Monika Silva Zinc 50 MG oral Capsule 2020-07 008 15:01: 34 Yes 1{capsu le} Take 1 capsule by mouth 3 times a week Monika Silva Ascorbic Acid (Vitamin C) 1000 MG oral Tablet 2020-07 0 15:01: 34 Yes 1000mg Take 1,000 mg by mouth daily 3 times a week Monika Silva Cholecalcif sorin (Vitamin D3 Maximum Strength) 125 MCG (5000 UT) oral Capsule 2020-07 15:01: 34 Yes 1{capsu le} Take 1 capsule by mouth 3 times a week Monika Silva Bacillus Coagulans-I nulin (Probiotic) 1-250 BILLION-MG oral Capsule 2020-0708 15:01: 34 Yes 1{capsu le} Take 1 capsule by mouth 3 times a week Monika Silva Zinc 50 MG oral Capsule 2020-07 15:01: 34 Yes 1{capsu le} Take 1 capsule by mouth 3 times a week Monika Silva Ascorbic Acid (Vitamin C) 1000 MG oral Tablet 2020-07 15:01: 34 Yes 1000mg Take 1,000 mg by mouth daily 3 times a week Monika Silva Cholecalcif sorin (Vitamin D3 Maximum Strength) 125 MCG (5000 UT) oral Capsule 2020-0708 15:01: 34 Yes 1{capsu le} Take 1 capsule by mouth 3 times a week Monika Silva Bacillus Coagulans-I nulin (Probiotic) 1-250 BILLION-MG oral Capsule 2020-0708 15:01: 34 Yes 1{capsu le} Take 1 capsule by mouth 3 times a week Monika Silva Zinc 50 MG oral Capsule 2020-0708 15:01: 34 Yes 1{capsu le} Take 1 capsule by mouth 3 times a week Monika Silva Ascorbic Acid (Vitamin C) 1000 MG oral Tablet 2020-0708 15:01: 34 Yes 1000mg Take 1,000 mg by mouth daily 3 times a week Monika Silva Cholecalcif sorin (Vitamin D3 Maximum Strength) 125 MCG (5000 UT) oral Capsule 2020-07 15:01: 34 Yes 1{capsu le} Take 1 capsule by mouth 3 times a week Monika Semarczarina Bacillus Coagulans-I nulin (Probiotic) 1-250 BILLION-MG oral Capsule 2020-07 15:01: 34 Yes 1{capsu le} Take 1 capsule by mouth 3 times a week Monika sergo Zinc 50 MG oral Capsule 2020-07 15:01: 34 Yes 1{capsu le} Take 1 capsule by mouth 3 times a week Monika Silva Ascorbic Acid (Vitamin C) 1000 MG oral Tablet 2020-07 15:01: 34 Yes 1000mg Take 1,000 mg by mouth daily 3 times a week Monika sergo Cholecalcif sorin (Vitamin D3 Maximum Strength) 125 MCG (5000 UT) oral Capsule 2020-07 15:01: 34 Yes 1{capsu le} Take 1 capsule by mouth 3 times a week Monika Sivla Mauro Coagulans-I nulin (Probiotic) 1-250 BILLION-MG oral Capsule 2020-07 15:01: 34 Yes 1{capsu le} Take 1 capsule by mouth 3 times a week Monika Silva Aspirin (Aspirin 81) 81 MG oral Tablet Delayed Response 2020-07 14:55: 28 Yes 81mg Take 81 mg by mouth daily Monika Silva Aspirin (Aspirin 81) 81 MG oral Tablet Delayed Response 2020-07 14:55: 28 Yes 81mg Take 81 mg by mouth daily Monika Silva Aspirin (Aspirin 81) 81 MG oral Tablet Delayed Response 2020-07 14:55: 28 Yes 81mg Take 81 mg by mouth daily Monika Silva Aspirin (Aspirin 81) 81 MG oral Tablet Delayed Response 2020-07 14:55: 28 Yes 81mg Take 81 mg by mouth daily Monika Silva Aspirin (Aspirin 81) 81 MG oral Tablet Delayed Response 2020-07 14:55: 28 Yes 81mg Take 81 mg by mouth daily Monika Silva Aspirin (Aspirin 81) 81 MG oral Tablet Delayed Response 2020-07 14:55: 28 Yes 81mg Take 81 mg by mouth daily Monika Semarczarina Amlodipine Besylate 5 MG oral Tablet 11-26 00:00: 00 Yes [id number] 5mg Take 1 tablet (5 mg total) by mouth daily Monika marczarina Levothyroxi ne Sodium (Synthroid) 75 MCG oral Tablet 11-26 00:00: 00 Yes [id number] 75ug Take 1 tablet (75 mcg total) by mouth daily Monika Silva Loratadine (Claritin) 10 MG oral tablet 11-26 00:00: 00 Yes [id number] 1{tbl} Take 1 tablet by mouth daily Monika Luuzarina Montelukast (Singulair) 10 MG oral Tablet tablet 11-26 00:00: 00 Yes [id number] 10mg Take 1 tablet (10 mg total) by mouth nightly Monika Silva Amlodipine Besylate 5 MG oral Tablet 11-26 00:00: 00 Yes [id number] 5mg Take 1 tablet (5 mg total) by mouth daily Monika Silva Levothyroxi ne Sodium (Synthroid) 75 MCG oral Tablet 11-26 00:00: 00 Yes [id number] 75ug Take 1 tablet (75 mcg total) by mouth daily Monika Silva Loratadine (Claritin) 10 MG oral tablet 11-26 00:00: 00 Yes [id number] 1{tbl} Take 1 tablet by mouth daily Monika Silva Montelukast (Singulair) 10 MG oral Tablet tablet 11-26 00:00: 00 Yes [id number] 10mg Take 1 tablet (10 mg total) by mouth nightly Monika marczarina Amlodipine Besylate 5 MG oral Tablet 11-26 00:00: 00 Yes [id number] 5mg Take 1 tablet (5 mg total) by mouth daily Monika Luuzarina Levothyroxi ne Sodium (Synthroid) 75 MCG oral Tablet 11-26 00:00: 00 Yes [id number] 75ug Take 1 tablet (75 mcg total) by mouth daily Monika Silva Loratadine (Claritin) 10 MG oral tablet 11-26 00:00: 00 Yes [id number] 1{tbl} Take 1 tablet by mouth daily Monika Luuzarina Montelukast (Singulair) 10 MG oral Tablet tablet 11-26 00:00: 00 Yes [id number] 10mg Take 1 tablet (10 mg total) by mouth nightly Monika Silva Loratadine (Claritin) 10 MG oral tablet 11-26 00:00: 00 Yes [id number] 1{tbl} Take 1 tablet by mouth daily Monika Silva Montelukast (Singulair) 10 MG oral Tablet tablet 11-26 00:00: 00 Yes [id number] 10mg Take 1 tablet (10 mg total) by mouth nightly Monika Silva Amlodipine Besylate 5 MG oral Tablet 11-26 00:00: 00 Yes [id number] 5mg Take 1 tablet (5 mg total) by mouth daily Monika Silva Levothyroxi ne Sodium (Synthroid) 75 MCG oral Tablet 11-26 00:00: 00 Yes [id number] 75ug Take 1 tablet (75 mcg total) by mouth daily Monika Silva Loratadine (Claritin) 10 MG oral tablet 11-26 00:00: 00 Yes [id number] 1{tbl} Take 1 tablet by mouth daily Monika Silva Montelukast (Singulair) 10 MG oral Tablet tablet 11-26 00:00: 00 Yes [id number] 10mg Take 1 tablet (10 mg total) by mouth nightly Monika Silva Amlodipine Besylate 5 MG oral Tablet 11-26 00:00: 00 Yes [id number] 5mg Take 1 tablet (5 mg total) by mouth daily Monika Silva Levothyroxi ne Sodium (Synthroid) 75 MCG oral Tablet 11-26 00:00: 00 Yes [id number] 75ug Take 1 tablet (75 mcg total) by mouth daily Monika Silva Loratadine (Claritin) 10 MG oral tablet 11-26 00:00: 00 Yes [id number] 1{tbl} Take 1 tablet by mouth daily Monika Silva Montelukast (Singulair) 10 MG oral Tablet tablet 11-26 00:00: 00 Yes [id number] 10mg Take 1 tablet (10 mg total) by mouth nightly Monika Silva Amlodipine Besylate 5 MG oral Tablet 11-26 00:00: 00 Yes [id number] 5mg Take 1 tablet (5 mg total) by mouth daily Monika Silva Levothyroxi ne Sodium (Synthroid) 75 MCG oral Tablet 11-26 00:00: 00 Yes [id number] 75ug Take 1 tablet (75 mcg total) by mouth daily Monika Silva Loratadine (Claritin) 10 MG oral tablet 11-26 00:00: 00 Yes [id number] 1{tbl} Take 1 tablet by mouth daily Monika Silva Montelukast (Singulair) 10 MG oral Tablet tablet 11-26 00:00: 00 Yes [id number] 10mg Take 1 tablet (10 mg total) by mouth nightly Monika Silva Loratadine (Claritin) 10 MG oral tablet 11-26 00:00: 00 11-19 00:00 :00 No [id number] 1{tbl} Take 1 tablet by mouth daily Monika Silva Montelukast (Singulair) 10 MG oral Tablet tablet 11-26 00:00: 00 11-19 00:00 :00 No [id number] 10mg Take 1 tablet (10 mg total) by mouth nightly Monika Silva Immunizations Ordered Immunization Name Filled Immunization Name Date Status Comments Source SARS-COV-2 COVID-19 PFIZER VACCINE 2020-09-26 00:00:00 Completed [facility] SARS-COV-2 COVID-19 PFIZER VACCINE 2020-09-26 00:00:00 Completed [facility] SARS-COV-2 COVID-19 PFIZER VACCINE 2020-09-26 00:00:00 Completed [facility] SARS-COV-2 COVID-19 PFIZER VACCINE 2020-09-05 00:00:00 Completed [facility] SARS-COV-2 COVID-19 PFIZER VACCINE 2020-09-05 00:00:00 Completed [facility] SARS-COV-2 COVID-19 PFIZER VACCINE 2020-09-05 00:00:00 Completed [facility] Shingles IM (Shingrix) 2019-10-09 00:00:00 Completed Monika Seybold Shingles IM (Shingrix) 2019-10-09 00:00:00 Completed Monika Seybold Shingles IM (Shingrix) 2019-10-09 00:00:00 Completed Monika Seybold Shingles IM (Shingrix) 2019-10-09 00:00:00 Completed Monika Seybold Shingles IM (Shingrix) 2019-10-09 00:00:00 Completed Monika Seybold Shingles IM (Shingrix) 2019-10-09 00:00:00 Completed Monika Seybold Shingles IM (Shingrix) 2019-10-09 00:00:00 Completed Monika Seybold Shingles IM (Shingrix) 2019-10-09 00:00:00 Completed Monika Seybold Shingles IM (Shingrix) 2019-10-09 00:00:00 Completed Monika Seybold Shingles IM (Shingrix) 2019-06-09 00:00:00 Completed Monika Seybold Shingles IM (Shingrix) 2019-06-09 00:00:00 Completed Monika Seybold Shingles IM (Shingrix) 2019-06-09 00:00:00 Completed Monika Seybold Shingles IM (Shingrix) 2019-06-09 00:00:00 Completed Monika Seybold Shingles IM (Shingrix) 2019-06-09 00:00:00 Completed Monika Seybold Shingles IM (Shingrix) 2019-06-09 00:00:00 Completed Monika Seybold Shingles IM (Shingrix) 2019-06-09 00:00:00 Completed Monika Seybold Shingles IM (Shingrix) 2019-06-09 00:00:00 Completed Monika Seybold Shingles IM (Shingrix) 2019-06-09 00:00:00 Completed Monika Seybold Influenza Virus Vaccine, age 6 months and up 2018-05-23 00:00:00 Completed Monika Seybold Influenza Virus Vaccine, age 6 months and up 2018-05-23 00:00:00 Completed Monika Seybold Influenza Virus Vaccine, age 6 months and up 2018-05-23 00:00:00 Completed Monika Seybold Influenza Virus Vaccine, age 6 months and up 2018-05-23 00:00:00 Completed Monika Seybold Influenza Virus Vaccine, age 6 months and up 2018-05-23 00:00:00 Completed Monika Seybold Influenza Virus Vaccine, age 6 months and up 2018-05-23 00:00:00 Completed Monika Seybold Influenza Virus Vaccine, age 6 months and up 2018-05-23 00:00:00 Completed Monika Seybold Influenza Virus Vaccine, age 6 months and up 2018-05-23 00:00:00 Completed Monika Seybold Influenza Virus Vaccine, age 6 months and up 2018-05-23 00:00:00 Completed Monika Seybold Tdap- (Boostrix, Adacel) 2017-10-11 00:00:00 Completed Monika Seybold Tdap- (Boostrix, Adacel) 2017-10-11 00:00:00 Completed Monika Seybold Tdap- (Boostrix, Adacel) 2017-10-11 00:00:00 Completed Monika Seybold Tdap- (Boostrix, Adacel) 2017-10-11 00:00:00 Completed Monika Seybold Tdap- (Boostrix, Adacel) 2017-10-11 00:00:00 Completed Monika Seybold Tdap- (Boostrix, Adacel) 2017-10-11 00:00:00 Completed Monika Seybold Tdap- (Boostrix, Adacel) 2017-10-11 00:00:00 Completed Monika Seybold Tdap- (Boostrix, Adacel) 2017-10-11 00:00:00 Completed Monika Seybold Tdap- (Boostrix, Adacel) 2017-10-11 00:00:00 Completed Monika Seybold Influenza Virus Vaccine, age 6 months and up 2017-05-03 00:00:00 Completed Monika Seybold Influenza Virus Vaccine, age 6 months and up 2017-05-03 00:00:00 Completed Monika Seybold Influenza Virus Vaccine, age 6 months and up 2017-05-03 00:00:00 Completed Monika Seybold Influenza Virus Vaccine, age 6 months and up 2017-05-03 00:00:00 Completed Monika Seybold Influenza Virus Vaccine, age 6 months and up 2017-05-03 00:00:00 Completed Monika Seybold Influenza Virus Vaccine, age 6 months and up 2017-05-03 00:00:00 Completed Monika Seybold Influenza Virus Vaccine, age 6 months and up 2017-05-03 00:00:00 Completed Monika Seybold Influenza Virus Vaccine, age 6 months and up 2017-05-03 00:00:00 Completed Monika Seybold Influenza Virus Vaccine, age 6 months and up 2017-05-03 00:00:00 Completed Monika Manzanraeszarina SARS-COV-2 COVID-19 PFIZER VACCINE Unknown Completed [facility] SARS-COV-2 COVID-19 PFIZER VACCINE Unknown Completed [facility] Vital Signs Vital Name Observation Time Observation Value Comments S ource Systolic blood pressure 2023-09-11 11:00:00 107 mm[Hg] [facility] Diastolic blood pressure 2023-09-11 11:00:00 70 mm[Hg] [facility] Heart rate 2023-09-11 11:00:00 92 /min [facility] Respiratory rate 2023-09-11 11:00:00 15 /min [facility] Oxygen saturation in Arterial blood by Pulse oximetry 2023-09-11 11:00:00 96 /min [facility] Body weight 2023-09-11 08:58:00 92.987 kg General acute hospital BMI 2023-09-11 08:58:00 32.11 kg/m2 General acute hospital Body temperature 2023-09-11 08:58:00 36.89 Nathalia [facility] Body height 2023-09-11 08:58:00 170.2 cm General acute hospital Systolic blood pressure 2022-06-21 16:27:00 115 mm[Hg] [facility] Diastolic blood pressure 2022-06-21 16:27:00 75 mm[Hg] [facility] Heart rate 2022-06-21 16:27:00 83 /min [facility] Body temperature 2022-06-21 16:27:00 37.11 Nathalia [facility] Respiratory rate 2022-06-21 16:27:00 16 /min [facility] Body height 2022-06-21 16:27:00 167.6 cm General acute hospital Body weight 2022-06-21 16:27:00 93.849 kg General acute hospital BMI 2022-06-21 16:27:00 33.39 kg/m2 General acute hospital Oxygen saturation in Arterial blood by Pulse oximetry 2022-06-21 16:27:00 96 /min [facility] Systolic blood pressure 2021-11-22 18:47:00 131 mm[Hg] Monika Seybo ld Diastolic blood pressure 2021-11-22 18:47:00 86 mm[Hg] Monika Seybo ld Heart rate 2021-11-22 18:47:00 79 /min Kelse y Seybold Body temperature 2021-11-22 18:15:00 36.61 Nathalia Monika Seybold Respiratory rate 2021-11-22 18:15:00 18 /min Monika Seybold Body height 2021-11-22 18:15:00 167.6 cm Ami ey Seybold Body weight 2021-11-22 18:15:00 93.441 kg Ami ey Seybold BMI 2021-11-22 18:15:00 33.25 kg/m2 Ami ey Seybold Oxygen saturation in Arterial blood by Pulse oximetry 2021-11-22 18:15:00 96 /min Monika Seybo ld Systolic blood pressure 2021-11-19 14:27:00 128 mm[Hg] Monika Seybo ld Diastolic blood pressure 2021-11-19 14:27:00 82 mm[Hg] Monika Seybo ld Heart rate 2021-11-19 14:27:00 84 /min Kelse y Seybold Body temperature 2021-11-19 14:27:00 37.17 Nathalia Monika Seybold Respiratory rate 2021-11-19 14:27:00 16 /min Monika Seybold Body height 2021-11-19 14:27:00 167.6 cm Ami ey Seybold Body weight 2021-11-19 14:27:00 93.441 kg Ami ey Seybold BMI 2021-11-19 14:27:00 33.25 kg/m2 Ami ey Seybold Systolic blood pressure 2021-08-13 21:32:00 122 mm[Hg] Monika Seybo ld Diastolic blood pressure 2021-08-13 21:32:00 80 mm[Hg] Monika Seybo ld Heart rate 2021-08-13 21:32:00 70 /min Kelse y Seybold Body temperature 2021-08-13 21:32:00 36.78 Nathalia Monika Seybold Respiratory rate 2021-08-13 21:32:00 16 /min Monika Seybold Oxygen saturation in Arterial blood by Pulse oximetry 2021-08-13 21:32:00 98 /min Monika Seybo ld Systolic blood pressure 2021-07-16 21:50:00 124 mm[Hg] Monika Seybo ld Diastolic blood pressure 2021-07-16 21:50:00 84 mm[Hg] Monika Seybo ld Heart rate 2021-07-16 21:50:00 81 /min Kelse y Seybold Respiratory rate 2021-07-16 21:50:00 16 /min Monika Seybold Body temperature 2021-07-16 21:09:00 36.56 Nathalia Monika Seybold Oxygen saturation in Arterial blood by Pulse oximetry 2021-07-16 21:09:00 97 /min Monika Seybo ld Systolic blood pressure 2021-06-11 19:40:00 133 mm[Hg] Monika Seybo ld Diastolic blood pressure 2021-06-11 19:40:00 82 mm[Hg] Monika Seybo ld Heart rate 2021-06-11 19:40:00 78 /min Kelse y Seybold Body temperature 2021-06-11 19:40:00 36.56 Nathalia Monika Seybold Respiratory rate 2021-06-11 19:40:00 18 /min Monika Seybold Body weight 2021-06-11 19:40:00 94.348 kg Ami ey Seybold BMI 2021-06-11 19:40:00 33.57 kg/m2 Ami ey Seybold Oxygen saturation in Arterial blood by Pulse oximetry 2021-06-11 19:40:00 98 /min Monika Seybo ld Systolic blood pressure 2021-05-14 15:22:00 145 mm[Hg] Monika Seybo ld Diastolic blood pressure 2021-05-14 15:22:00 91 mm[Hg] Monika Seybo ld Heart rate 2021-05-14 15:22:00 70 /min Kelse y Seybold Body temperature 2021-05-14 15:22:00 36.28 Nathalia Monika Seybold Respiratory rate 2021-05-14 15:22:00 17 /min Monika Seybold Body height 2021-05-14 15:22:00 167.6 cm Ami ey Seybold Body weight 2021-05-14 15:22:00 94.167 kg Ami ey Seybold BMI 2021-05-14 15:22:00 33.51 kg/m2 Ami ey Seybold Oxygen saturation in Arterial blood by Pulse oximetry 2021-05-14 15:22:00 98 /min Monika Seybo ld Systolic blood pressure 2021-04-16 19:47:00 124 mm[Hg] Monika Seybo ld Diastolic blood pressure 2021-04-16 19:47:00 83 mm[Hg] Monika Seybo ld Heart rate 2021-04-16 19:47:00 89 /min Kelse y Seybold Body temperature 2021-04-16 19:47:00 36.11 Nathalia Monika Seybold Respiratory rate 2021-04-16 19:47:00 18 /min Monika Seybold Body height 2021-04-16 19:47:00 167.6 cm Ami ey Seybold Body weight 2021-04-16 19:47:00 93.441 kg Ami ey Seybold BMI 2021-04-16 19:47:00 33.25 kg/m2 Ami ey Seybold Oxygen saturation in Arterial blood by Pulse oximetry 2021-04-16 19:47:00 96 /min Monika Seybo ld Procedures Procedure Date / Time Performed Performing Clinicia n Source CT ABDOMEN PELVIS W CONTRAST 2023-09-11 10:23:39 Yong Lizarraga [facility] URINALYSIS 2023-09-11 09:28:00 Yong Lizarraga [facility] LIPASE 2023-09-11 09:05:00 [facility] COMP. METABOLIC PANEL (58584) 2023-09-11 09:05:00 Singer Yong [facility] CBC WITH DIFF 2023-09-11 09:05:00 Singer Yong General acute hospital CONSENT/REFUSAL FOR DIAGNOSIS AND TREATMENT 2023-09-11 08:53:05 Doctor Unassigned, [place] [facility] Encounters Start Date/Time End Date/Time Encounter Type Admission Type Attending [facility] Facility Care Department Encounter ID Source 2023-09-11 02:55:00 2023-09-11 05:53:00 Emergency X KATI LIZARRAGAIP [facility] ERT [id number] [facility] 2023-09-11 02:55:00 2023-09-11 05:53:00 Emergency Kati Lizarragaip [facility] 1.2.840.114 350.1.13.10 4.2.7.2.686 [id number] [facility] 2023-06-26 10:30:00 2023-06-26 10:30:00 Outpatient R MANNY SLATER [facility] [id number] [facility] 2023-06-22 10:30:00 2023-06-22 10:30:00 Outpatient R MANNY SLATER [facility] [id number] [facility] 2023-06-22 10:30:00 2023-06-22 10:30:00 Outpatient R GEOVANNY PETTIT [facility] [id number] [facility] 2023-01-30 15:00:00 2023-01-30 15:00:00 Outpatient PAULINA MEDINA [id number] Monika Silva 2023-01-11 00:00:00 2023-01-11 00:00:00 Outpatient PAULINA MEDINA [id number] Monika Ricardo 2022-06-22 09:29:18 2022-06-22 23:59:00 Outpatient R MANNY SLATER [facility] [id number] [facility] 2022-06-22 09:29:18 2022-06-22 23:59:00 Hospital Encounter Manny Slater [facility] 1.2.840.114 350.1.13.10 4.2.7.2.686 [id number] [facility] 2022-06-21 10:00:00 2022-06-21 10:52:04 Office Visit Manny Slater [facility] 1..840.114 350.1.13.10 4.2.7.2.686 [id number] [facility] 2022-06-21 10:00:00 2022-06-21 10:52:04 Outpatient R MANNY SLATER [facility] [id number] [facility] 2022-03-10 08:00:00 2022-03-10 08:00:00 Outpatient JOVITATERRI [id number] Monika [facility] 2022-03-04 00:00:00 2022-03-04 00:00:00 Outpatient PAULINA MEDINA [id number] Monika [facility] 2022-03-02 08:30:00 2022-03-02 08:30:00 Outpatient LAB90 MONIKA YU [id number] Monika sergo 2022-03-02 08:00:00 2022-03-02 08:15:00 Office Visit [place]ina [place] 1.2.840.114 350.1.13.13 1.2.7.2.686 [id number] Monika sergo 2022-03-01 08:30:00 2022-03-01 08:30:00 Outpatient JOVITA, TERRI MONIKA YU [id number] Monika Manzanareszarina 2022-02-22 13:30:00 2022-02-22 13:30:00 Outpatient INFUSION, KAHLIL YU [id number] Monika Silva 2022-02-18 15:30:00 2022-02-18 15:30:00 Outpatient JOVITA, TERRI MONIKA YU [id number] Monika Silva 2022-02-15 00:00:00 2022-02-15 00:00:00 Outpatient LE, LEYDI MONIKA YU [id number] Monika Silva 2022-02-15 00:00:00 2022-02-15 00:00:00 Outpatient LOPEZ, MAICOL MONIKA YU [id number] [facility] 2021-11-22 13:15:00 2021-11-22 14:15:00 Infusion Infusion, Infusion, [facility] 1.2.840.114 350.1.13.13 1.2.7.2.686 [id number] Monika Manzanareszarina 2021-11-22 00:00:00 2021-11-22 00:00:00 Outpatient JOVITA, TERRI MONIKA YU [id number] [facility] 2021-11-19 10:15:00 2021-11-19 10:15:00 Outpatient LAB90 MONIKA YU [id number] Monika [facility] 2021-11-19 09:30:00 2021-11-19 10:00:00 Office Visit Paulina Medina [facility] 1..840.114 350.1.13.13 1.2.7.2.686 [id number] Monika Ricardo 2021-11-12 15:00:00 2021-11-12 15:00:00 Outpatient INFUSION, KAHLIL YU [id number] [facility] 2021-11-10 14:00:00 2021-11-10 14:00:00 Outpatient IVT, KAHLIL YU [id number] Monika [facility] 2021-11-09 00:00:00 2021-11-09 00:00:00 Outpatient JUAN MANUEL GREEN MONIKA YU [id number] [facility] 2021-11-08 00:00:00 2021-11-08 00:00:00 Outpatient [facility] [id number] [facility] 2021-11-07 00:00:00 2021-11-07 00:00:00 Outpatient BRENNON JACOBMICHELLE YU [id number] [facility] 2021-11-07 00:00:00 2021-11-07 00:00:00 Outpatient JUAN MANUEL GREEN MONIKA YU [id number] Monika [facility] 2021-11-06 12:30:00 2021-11-06 12:30:00 Telemedici ne JUAN MANUEL GREEN ANYAWOO D 1.2.840.114 350.1.13.13 1.2.7.2.686 [id number] Monika [facility] 2021-11-06 12:00:00 2021-11-06 12:00:00 Outpatient JUAN MANUEL GREEN MONIKA YU [id number] Monika [facility] 2021-11-05 00:00:00 2021-11-05 00:00:00 Outpatient MERARY VELASQUEZ [id number] Monika [facility] 2021-11-05 00:00:00 2021-11-05 00:00:00 Outpatient GARRETT VELASQUEZ [id number] Monika [facility] 2021-11-05 00:00:00 2021-11-05 00:00:00 Outpatient GARRETT VELASQUEZ [id number] [facility] 2021-09-10 14:00:00 2021-09-10 14:00:00 Outpatient IVT, KAHLIL YU [id number] [facility] 2021-08-16 00:00:00 2021-08-16 00:00:00 Outpatient JOVITATERRI AWAD [id number] Monika ybzarina 2021-08-13 16:15:00 2021-08-13 16:15:00 Outpatient LAB39 MONIKA YU [id number] [facility] 2021-08-13 15:30:00 2021-08-13 16:00:00 [facility].2.[facility].114 350.1.13.13 1.2.7.2.686 [id number] [facility] 2021-08-13 14:45:00 2021-08-13 15:45:00 [facility] 1.2.840.114 350.1.13.13 1.2.7.2.686 [id number] [facility] 2021-08-13 00:00:00 2021-08-13 00:00:00 Outpatient TERRI HUSSEIN MONIKA YU [id number] [facility] 2021-07-16 14:30:00 2021-07-16 15:30:00 [facility] 1.2.840.114 350.1.13.13 1.2.7.2.686 [id number] [facility] 2021-07-16 14:20:00 2021-07-16 14:20:00 Outpatient LAB39 MONIKA YU [id number] Monika [facility] 2021-07-07 00:00:00 2021-07-07 00:00:00 Outpatient MERARY VELASQUEZ [id number] Monika [facility] 2021-07-07 00:00:00 2021-07-07 00:00:00 Outpatient GARRETT VELASQUEZ [id number] Monika [facility] 2021-06-11 14:15:00 2021-06-11 14:15:00 Outpatient LAB39 MONIKA YU [id number] Monika [facility] 2021-06-11 13:00:00 2021-06-11 13:00:00 Infusion IVT, [facility] 1.2.840.114 350.1.13.13 1.2.7.2.686 [id number] Monika [facility] 2021-06-11 10:15:00 2021-06-11 10:15:00 Outpatient INFUSION, MONIKA YU [id number] [facility] 2021-06-04 00:00:00 2021-06-04 00:00:00 Outpatient TAILOR, DARLENE MONIKA YU [id number] [facility] 2021-05-14 14:00:00 2021-05-14 14:00:00 Outpatient INFUSION, MONIKA YU [id number] [facility] 2021-05-14 10:00:00 2021-05-14 10:00:00 Infusion INFUSION, [facility] 1.2.840.114 350.1.13.13 1.2.7.2.686 [id number] [facility] 2021-05-14 09:50:00 2021-05-14 09:50:00 Outpatient MONIKA YU [id number] Monika [facility] 2021-05-11 00:00:00 2021-05-11 00:00:00 Outpatient MAICOL LOPEZ [id number] [facility] 2021-05-07 00:00:00 2021-05-07 00:00:00 Outpatient LANDEN HARRIS [id number] Monika [facility] 2021-04-16 14:40:02 2021-04-16 15:40:02 Infusion Infusion, Infusion, [facility] 1.2.840.114 350.1.13.13 1.2.7.2.686 [id number] Monika [facility] 2021-04-16 13:45:00 2021-04-16 13:45:00 Outpatient MONIKA YU [id number] Monika [facility] 2021-04-09 00:00:00 2021-04-09 00:00:00 Outpatient MERARY VELASQUEZ [id number] Monika [facility] 2021-01-14 00:00:00 2021-01-14 00:00:00 Outpatient JOVITATERRI MCKAY [id number] [facility] 2021-01-14 00:00:00 2021-01-14 00:00:00 Outpatient LEYDI AVINA [id number] Monika Silva Results Test Description Test Time Test Comments Results Resul t Comments Source CT ABDOMEN PELVIS W CONTRAST 4 10:44:01 ORDERING PHYSICIAN: YONG LIZARRAGA CLINICAL HISTORY: Abdominal pain COMPARISON: None available. TECHNIQUE: Helical CT images of the abdomen and pelvis obtained with IVcontrast. CT scan performed according to ALARA (As low as reasonablyachievabl e) principles. FINDINGS: Heart size is normal. The liver, gallbladder, pancreas, spleen, andadrenals are unremarkable. Kidneys are unremarkable. There is nohydronephrosis. Diverticula are identified in the colon. There is wallthickening and surrounding inflammation of the distal descending colon,consistent with diverticulitis. There is no perforation. There is noabscess. Trace fluid is in the pelvis. Patient is status post hysterectomy.The appendix is normal. The bones are unremarkable. [facility] ([id number])2023-09-11 09:42:48* Test Item Value Reference Range Interpretation Comme nts NA (test code = 0535888575) 139 mmol/L 135-145 K (test code = 0145443474) 3.4 mmol/L 3.5-5.0 L CL (test code = 0477873248) 104 mmol/L 98-108 CO2 TOTAL (test code = 0786048449) 28 mmol/L 23-31 AGAP (test code = 9262884724) 7 2-16 BUN (test code = 1834024475) 13 mg/dL 7-23 GLUCOSE (test code = 3950015854) 120 mg/dL 70-110 H CREATININE (test code = 2160-0) 0.58 mg/dL 0.50-1.04 TOTAL BILI (test code = 5054008635) 0.5 mg/dL 0.1-1.1 CALCIUM (test code = 5724417951) 9.1 mg/dL 8.6-10.6 T PROTEIN (test code = 1770766507) 8.5 g/dL 6.3-8.2 H ALBUMIN (test code = 0576458974) 4.4 g/dL 3.5-5.0 ALK PHOS (test code = 4474270253) 122 U/L 34-122 ALTv (test code = 1742-6) 28 U/L 5-35 AST(SGOT) (test code = 9594724189) 42 U/L 13-40 H eGFR (test code = 59250-2) 106.4 mL/min/1.73m2 CKD-EPI eGFR (2020). Assuming creatinine has been stable day-to-day for at least three months, the eGFR indicates Category G1 (>= 90 mL/min/1.73 m2) Lab Interpretation (test code = 37900-3) Abnormal [facility] 09:42:48* Test Item Value Reference Range Interpretation Comme nts LIPASE (test code = 5531051453) 133 U/L 0-220 Lab Interpretation (test cod e = 07828-9) Normal [facility] Notes Date/Time Note Provider Source 2023-09-11 05:52:20 k6vOPkFWOMP3ay+XWfP8/XRhBwdZiQ0BWjnxceP z4MdEDdq2C49pbSgvGxSHH/wy9928-60-00W71: 52:20 Pt given printed and verbal discharge instructions regarding llq abdominal pain, diverticulitis.Encouraged hydration,Prescriptions provided:cipro, flagylDiscussed ibuprofen and to take with food to avoid GI distress.Discussed antibiotic therapy and to take until all completed unless adverse reaction occurs - if occurs, discontinue medication and follow up with pcp/seek medical attentionPt verbalized understanding of instructions, pt awake alert oriented, resp reg unlabored, skin w/d, color appropriate for race, moves all ext well,pt encouraged to follow up with pcp.Advised to seek medical attention for new/prolonged/worsening of symptoms,Symptoms improved.No adverse reaction to meds given in ER noted upon dischargePIV d'cd, dressing to site, catheter in tact.Awake, alert oriented, resp reg unlabored, skin w/d, pt leaving amb with steady gait, in no apparent distress, accompanied by . 10524-6Oxvqxtdey department SsnaPQ3735-02-15N42:53:18[facility]rovidence [facility] department NoteTXT1.2.840.596609.1.13.104.2.7.2.72 7879|[id number] for patient pmrv51764-0OfqdTGUNAVGSSMNYibhwmzkn C-CDA narrative [id number] VADKSRZXXXAFORWPVSK9491-64-34Y75:53:181 .2.840.889039.1.72.3.15|1.2.840.328749. 1.13.104.2.7.2.727879_[id number] [facility] 2023-09-11 04:16:44 Qgzb/03qpCmZungcktP46e9eNvNcNvuECAMtNIU klaW31WS9pGF4mCAC5ik6AhvS5990-41-81U83: 16:44 Pt return to room from CT, ambulatory to bathroom & back, steady gait. 22102-5Qdoylnpbc department JmnpDY4745-92-60E60:17:24[facility] department NoteTXT1.2.840.580969.1.13.104.2.7.2.72 7879|[id number] for patient ebip96081-1DorqMERLUBCUFEQUvqrdbmhn C-CDA narrative [id number] ZBNWGTJGZDXOPHMJVYH0722-91-93X75:17:241 .2.840.282838.1.72.3.15|1.2.840.593875. 1.13.104.2.7.2.727879_[id number] [facility] 2023-09-11 02:57:27 nGq8qOwpuXTM8a2J9lyHmN8huiQn02WI9dAah1Y 1pC7WWUW5b1SZZ2If/jv0JnVj7370-99-98H98: 57:27 Seen last week in [place] ER dx with diverticulitis.Came in tonight complaining of not feeling good. Complaining of chest pain and epigastric pain. 89220-9Anuislkth department Triage uvegXR2051-16-13M33:58:24Emeprovidence health department Triage noteTXT1.2.840.038359.1.13.104.2.7.2.72 7879|[id number] for patient mqxe03511-3Inrjrxwgz department NoteLNNARRATIVEFormatted C-CDA narrative [id number] Ross RN[address] Ec[id number] IILTUBYSTAYHVPAUIMG7803-72-35B77:58:241 .2.840.328371.1.72.3.15|1.2.840.736241. 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 Complaining of chest pain and epigastric pain.History of Present Illness:Danita Yañez is a 58 year old female with epigastric pain. History of recent diverticulitis. Afebrile. Pain is improving. No distress. BP was elevated during the event. Improved.Past Medical History/Immunizations:Past Medical History:Diagnosis DateHypertensionLeiomyoma of uterusThyroid diseaseTetanus received in last 5 years: NoChildhood immunizations: Hd-jn-ohrlKfvskqdni:AllergiesAllergen ReactionsIbuprofen ItchingPast Social History:Tobacco UseNever smoked or used smokeless tobacco.Passive Exposure: NeverVaping UseNever usedAlcohol UseYes.Comments: sociallyDrug UseNever.Sexual ActivitySexually active; Partners: Male; Control/Protection: Surgical.Past Surgical History:Past Surgical History:Procedure Laterality DateBREAST BIOPSYHYSTERECTOMYRADICAL HYSTERECTOMYReview of Systems:Review of SystemsConstitutional: Negative for chills, fatigue and fever.HENT: Negative for sore throat.Eyes: Negative for pain.Respiratory: Negative for cough, chest tightness, shortness of breath and stridor.Breasts: Negative for pain.Cardiovascular: Negative for chest pain and palpitations.Gastrointestinal: Positive for abdominal pain. Negative for constipation and diarrhea.Genitourinary: Negative for bladder incontinence and difficulty urinating.Musculoskeletal: Negative for back pain.Skin: Negative for color change.Neurological: Negative for dizziness, seizures, weakness, light-headedness and headaches.Physical Exam:ED Triage Vitals [09/11/23 0258]Weight 93 kg (205 lb)Actual or estimated Estimated by patient/family reportHeight 1.702 m (5' 7")BP (!) 151/106Pulse 123Resp 20Temp 36.9 ?C (98.4 ?F)Temp source OralSpO2 97 %Measured on Room airPhysical ExamVitals and nursing note reviewed.Constitutional:General: She is not in acute distress.Appearance: She is well-developed. She is not diaphoretic.HENT:Head: Normocephalic and atraumatic.Right Ear: External ear normal.Left Ear: External ear normal.Nose: Nose normal.Eyes:General: No scleral icterus.Conjunctiva/sclera: Conjunctivae normal.Pupils: Pupils are equal, round, and reactive to light.Cardiovascular:Rate and Rhythm: Normal rate and regular rhythm.Heart sounds: Normal heart sounds.Pulmonary:Effort: Pulmonary effort is normal.Breath sounds: Normal breath sounds.Abdominal:General: Bowel sounds are normal.Palpations: Abdomen is soft.Tenderness: There is abdominal tenderness. There is no guarding or rebound.Musculoskeletal:General: Normal range of motion.Cervical back: Normal range of motion and neck supple.Skin:General: Skin is warm and dry.Neurological:Mental Status: She is alert and oriented to person, place, and time.Cranial Nerves: No cranial nerve deficit.Deep Tendon Reflexes: Reflexes are normal and symmetric.Psychiatric:Behavior: Behavior normal.Thought Content: Thought content normal.Radiology:CT ABDOMEN PELVIS W CONTRASTFinal ResultORDERING PHYSICIAN: YONG WEEMS HISTORY: Abdominal painCOMPARISON: None available.TECHNIQUE: Helical CT images of the abdomen and pelvis obtained with IVcontrast. CT scan performed according to ALARA (As low as reasonablyachievable) principles.FINDINGS:Heart size is normal. The liver, gallbladder, pancreas, spleen, andadrenals are unremarkable. Kidneys are unremarkable. There is nohydronephrosis. Diverticula are identified in the colon. There is wallthickening and surrounding inflammation of the distal descending colon,consistent with diverticulitis. There is no perforation. There is noabscess. Trace fluid is in the pelvis. Patient is status posthysterectomy.The appendix is normal. The bones are unremarkable.IMPRESSIONAcute diverticulitis of the distal descending colonThere is no perforation. There is no abscess.RL: 5252 Lab Results:Lab ResultsCBC WITH DIFF - AbnormalResult Value Ref RangeWBC 10.25 4.30 - 11.10 10*3/?LRBC 5.48 (*) 3.93 - 5.25 10*6/?LHGB 14.3 11.6 - 15.0 g/dLHCT 43.9 35.7 - 45.2 %MCV 80.1 (*) 80.6 - 95.5 fLMCH 26.1 25.9 - 32.8 pgMCHC 32.6 31.6 - 35.1 g/dLRDW-SD 44.5 39.0 - 49.9 fLRDW-CV 15.4 12.0 - 15.5 %PLT 379 (*) 166 - 358 10*3/?LMPV 9.8 9.5 - 12.9 fLNRBC/100 WBC 0.0 0.0 - 10.0 /100 WBCsNRBC x10^3 <0.01 10*3/?LGRAN MAT (NEUT) % 66.2 %IMM GRAN % 0.30 %LYMPH % 23.8 %MONO % 7.8 %EOS % 1.5 %BASO % 0.4 %GRAN MAT x10^3(ANC) 6.79 1.88 - 7.09 10*3/uLIMM GRAN x10^3 0.03 0.00 - 0.06 10*3/uLLYMPH x10^3 2.44 1.32 - 3.29 10*3/uLMONO x10^3 0.80 0.33 - 0.92 10*3/uLEOS x10^3 0.15 0.03 - 0.39 10*3/uLBASO x10^3 0.04 0.01 - 0.07 10*3/uLCOMP. METABOLIC PANEL (78690) - AbnormalNA 139 135 - 145 mmol/LK 3.4 (*) 3.5 - 5.0 mmol/LCL 104 98 - 108 mmol/LCO2 TOTAL 28 23 - 31 mmol/LAGAP 7 2 - 16BUN 13 7 - 23 mg/dLGLUCOSE 120 (*) 70 - 110 mg/dLCREATININE 0.58 0.50 - 1.04 mg/dLTOTAL BILI 0.5 0.1 - 1.1 mg/dLCALCIUM 9.1 8.6 - 10.6 mg/Anali PROTEIN 8.5 (*) 6.3 - 8.2 g/dLALBUMIN 4.4 3.5 - 5.0 g/dLALK PHOS 122 34 - 122 U/LALTv 28 5 - 35 U/LAST(SGOT) 42 (*) 13 - 40 U/LeGFR 106.4 mL/min/1.04f8RRRLGGCSKO - AbnormalAPPEARANCE Clear ClearCOLOR Yellow YellowPH 6.0 4.8 - 8.0SP GRAVITY 1.012 1.003 - 1.030GLU U QUAL Normal NormalBLOOD Negative NegativeKETONES 5 mg/dL (*) NegativePROTEIN Negative NegativeUROBILIN Normal NormalBILIRUBIN Negative NegativeNITRITE Negative NegativeLEUK [place] 25/uL (*) NegativeRBC/HPF 8 (*) 0 - 3 HPFWBC/HPF 1 0 - 5 HPFBACTERIA Few (*) NegativeMUCOUS Slight (*) Negative LPFSQ EPITH <1 HPFLIPASE - NormalLIPASE 133 0 - 220 U/LEKG:If EKG completed, see Procedure Note.Orders and Treatments:Orders Placed This EncounterProceduresCT ABDOMEN PELVIS W CONTRASTCbc with DiffComp. Metabolic Panel (98742)LipaseUrinalysisOrders Placed This EncounterMedicationsondansetron (ZOFRAN (PF)) injection 4 mgNaCl 0.9% (NS) bolus infusion 1,000 mLiopamidol (ISOVUE 370-500 mL) injection 100 mLpiperacillin-tazobactam (ZOSYN) 3.375 g in NaCl 0.9% (NS) 100 mL MINI-BAGciprofloxacin HCl 500 mg tabletmetroNIDAZOLE 500 mg tabletondansetron 4 mg disintegrating tabletFirst Provider Eval:ED EventsNoneED COURSEED Course as of 09/11/[id number] consistent with acute diverticulitis. Will give IVABX and should go home on abx. No perforation. Afebrile. No leukocytosis. HR initially elevated but normalized. [PS]ED Course User Index[PS] Yong Lizarraga, DODiagnosis/Impression as of 09/11/23 0505LLQ abdominal painDiverticulitisProcedures:Procedures MDM:Medical Decision MakingTeresa Arrambide is a 58 year old female with epigastric pain and recent diverticulitis. CT redemonstrating acute diverticulitis.Amount and/or Complexity of Data ReviewedLabs: ordered.Radiology: ordered.RiskPrescription drug management.Flowsheet Documentation:Scoring Tools:No data recordedDisposition/Condition:ED DispositionED DispositionDisch - HomeConditionStableComment--Discharge Medications:Patient's MedicationsSTART taking these medicationsCIPROFLOXACIN HCL 500 MG TABLET Take 1 tablet by mouth in the morning and 1 tablet in the evening.METRONIDAZOLE 500 MG TABLET Take 1 tablet by mouth in the morning and 1 tablet in the evening.ONDANSETRON 4 MG DISINTEGRATING TABLET Take 1 tablet by mouth every 8 (eight) hours as needed for Nausea and Vomiting (N/V).CONTINUE taking these medications which have NOT CHANGEDAMLODIPINE 5 MG TABLETBACILLUS COAGULANS-INULIN 1 BILLION-250 CELL-MG CAP Take 1 capsule by mouth.CHOLECALCIFEROL, VITAMIN D3, 125 MCG (5,000 UNIT) CAPSULE Take 1 capsule by mouth.LEVOTHYROXINE 75 MCG TABLET Take 75 mcg by mouth.VITAMIN C WITH KAYLA HIPS 1,000 MG TABLET Take 1,000 mg by mouth.START taking Modified Medications as PrescribedNo medications on fileSTOP taking these medicationsNo medications on fileFollow-up:Contact information for follow-upPaulina Medina MDSpecialty: FM-FAMILY MEDICINERelationship: PCP - Judah Rebolledo [facility] [address]Nsuqp: [phone]: For follow up of the presenting symptoms.ADC-Emergency DepartmentSpecialty: Emergency [address] [place] [id number]: [phone]: If symptoms worsen as documented in the dischargeElectronically signed by:Yong Lizarraga DO09/11/23 0506 [id number] Emergency department [id number]:06:02Physician Emergency department [id number] for patient [id number] department NoteLNNARRATIVEFormatted C-CDA narrative text[address] X[id number] [id number]:06:021 .[id number]. [id number] [facility]
[2023-09-17 05:40] LABS: Absolute Lymphocytes (CBC) 0.8 K/uL (0.7-4.9); Basophils % 0.3 % (0-1.3); Eosinophils % 0.3 % (0-4.4); Hematocrit 40.9 % (36.0-45.0); Hemoglobin 13.3 g/dL (12.0-15.0); Lymphocytes % 4.8 % (15.3-44.8); MPV 7.4 fL (7.6-11.3); Platelets 284 thou/uL (152-406); RBC Red Blood Cell Count 5.17 M/uL (3.86-4.86)
[2023-09-17 05:54] LABS: Anion Gap 6.8 mEq/L (5.0-15.0); Magnesium 2.3 mg/dL (1.6-2.4); Potassium 3.8 mEq/L (3.5-5.1); Troponin High Sensitivity 3.6 pg/mL (<58.9)
[2023-09-17] MEDS ORDERED: NA CHLORIDE 0.9% 1,000 ML ONE ×2 (07:24→09:50)
[2023-09-17] MEDS ORDERED: NA CHLORIDE 0.9% 100 ML ONE ×2 (07:24→16:36)
[2023-09-17] MEDS ORDERED: PIPERACIL/TAZO 3.375 GM VIAL IV ONE ×2 (07:25→16:36)
--- NOTE | 2023-09-17 08:13 | EDPHYS ---
Physician Documentation [facility] Name: Danita Yañez Age: 58 yrs Sex: Female : 1965 Arrival Date: 09/17/2023 Time: 04:31 Bed 6 Private MD: ED Physician Spencer Warner HPI: 09/16 05:11 This 58 yrs old Female presents to ER via EMS with complaints of Abdominal ms3 pain. 05:11 58-year-old female with past medical history of thyroid disease, diverticulitis ms3 presents to the emergency department for epigastric and lower abdominal pain via [facility]. Patient states she was diagnosed with diverticulitis 2 weeks prior to arrival. EMS notes patient stated to them her abdominal pain is full and she had nausea. Patient was given 4 mg Zofran by EMS. EMS states twelve-lead EKG was normal sinus rhythm. Patient rates her discomfort an 8/10. Patient denies any alleviating or inciting factors. Historical: - Allergies: 04:56 Ibuprofen; vc1 - PMHx: 04:56 Thyroid problem; Diverticulitis; vc1 - PSHx: 04:56 None; vc1 - Immunization history:: Client reports receiving the 2nd dose of the Covid vaccine, Flu vaccine is up to date. - Social history:: Smoking status: Patient denies any tobacco usage or history of. ROS: 05:11 Constitutional: Negative for fever, and chills. Neck: Negative for injury, pain, and ms3 swelling, Cardiovascular: Negative for chest pain, and palpitations. Respiratory: Negative for shortness of breath, cough, wheezing, and pleuritic chest pain, 05:11 MS/Extremity: Negative for injury and deformity, Skin: Negative for injury, rash, and discoloration, 05:11 Abdomen/GI: Positive for abdominal pain, Exam: 05:11 Constitutional: This is a well developed, well nourished patient who is awake, alert, ms3 and in no acute distress. Head/Face: Normocephalic, atraumatic. Neck: Trachea midline, no cervical lymphadenopathy. Supple, full range of motion without nuchal rigidity, or vertebral point tenderness. No Meningismus. Chest/axilla: Normal chest wall appearance and motion. Nontender with no deformity. Cardiovascular: Regular rate and rhythm with a normal S1 and S2. No gallops, murmurs, or rubs. Normal PMI, no JVD. No pulse deficits. Respiratory: Lungs have equal breath sounds bilaterally, clear to auscultation and percussion. No rales, rhonchi or wheezes noted. No increased work of breathing, no retractions or nasal flaring. 05:11 Abdomen/GI: Inspection: abdomen appears normal, Bowel sounds: normal, Palpation: moderate abdominal tenderness, in the epigastric area, suprapubic area, right lower quadrant and left lower quadrant, 05:53 ECG was reviewed by the Attending Physician. ms3 Vital Signs: 04:31 BP 119 / 67; Pulse 85; Resp 16; Temp 98.1; Pulse Ox 95% ; Weight 92.99 kg; Height 5 ft. km8 7 in. ; Pain 10/10; 05:23 BP 118 / 74; Pulse 79; Resp 16; Pulse Ox 95% on R/A; km8 05:45 BP 109 / 83; Pulse 74; Resp 16; Pulse Ox 95% on R/A; km8 06:46 BP 117 / 79; Pulse 81; Pulse Ox 97% on R/A; Pain 0/10; tm6 07:25 BP 112 / 73; Pulse 81; Resp 15; Pulse Ox 95% on R/A; ko1 04:31 Body Mass Index 32.11 (92.99 kg, 170.18 cm) km8 04:31 Pain Scale: Adult km8 06:46 Pain Scale: Adult tm6 [place] Coma Score: 05:21 Eye Response: spontaneous(4). Motor Response: obeys commands(6). Verbal Response: km8 oriented(5). Total: 15. MDM: 04:37 Patient medically screened. ms3 05:11 Differential diagnosis: appendicitis, bowel obstruction, non-specific abd pain, ms3 pancreatitis. 06:52 Transition of care: After a detail discussion of the patient's case, care is ms3 transferred to Spencer Warner MD. 09/16 04:38 Order name: Basic Metabolic Panel; Complete Time: 06:01 ms3 09/16 04:38 Order name: CBC with Diff; Complete Time: 05:49 ms3 09/16 04:38 Order name: Magnesium; Complete Time: 06: ms3 09/16 04:38 Order name: Troponin HS; Complete Time: 06:01 ms3 09/16 04:38 Order name: Lipase; Complete Time: 06:01 ms3 09/16 08:56 Order name: Basic Metabolic Panel EDMS 09/16 08:56 Order name: Basic Metabolic Panel EDMS 09/16 08:56 Order name: Basic Metabolic Panel EDMS 09/16 08:56 Order name: Basic Metabolic Panel EDMS 09/16 08:56 Order name: Basic Metabolic Panel EDMS 09/16 08:56 Order name: Basic Metabolic Panel EDMS 09/16 08:56 Order name: CBC with Automated Diff EDMS 09/16 08:56 Order name: CBC with Automated Diff EDMS 09/16 08:56 Order name: CBC with Automated Diff EDMS 09/16 08:56 Order name: Urinalysis w/ reflexes EDMS 09/16 08:57 Order name: CBC with Automated Diff EDMS 09/16 08:57 Order name: CBC with Automated Diff EDMS 09/16 08:57 Order name: CBC with Automated Diff EDMS 09/16 08:57 Order name: Lipid Profile EDMS 09/16 08:57 Order name: Lipid Profile EDMS 09/16 08:57 Order name: Magnesium EDMS 09/16 08:57 Order name: Magnesium EDMS 09/16 08:57 Order name: Magnesium EDMS 09/16 08:57 Order name: Magnesium EDMS 09/16 08:57 Order name: Magnesium EDMS 09/16 08:57 Order name: Magnesium EDMS 09/16 08:57 Order name: Phosphorus EDMS 09/16 08:57 Order name: Phosphorus EDMS 09/16 08:57 Order name: Phosphorus EDMS 09/16 08:57 Order name: Phosphorus EDMS 09/16 08:57 Order name: Phosphorus EDMS 09/16 08:57 Order name: Phosphorus EDMS 09/16 17:37 Order name: Troponin High Sensitivity EDMS 09/16 04:38 Order name: XRAY Chest (1 view) ms3 09/16 04:38 Order name: CT Abd/Pelvis - IV Contrast Only ms3 09/16 04:38 Order name: EKG; Complete Time: 04:39 ms3 09/16 04:38 Order name: Cardiac monitoring; Complete Time: 05:21 ms3 09/16 04:38 Order name: EKG - Nurse/Tech; Complete Time: 05:21 ms3 09/16 04:38 Order name: IV Saline Lock; Complete Time: 05:21 ms3 09/16 04:38 Order name: Labs collected and sent; Complete Time: 05:21 ms3 09/16 04:38 Order name: O2 Per Protocol; Complete Time: 05:12 ms3 09/16 04:38 Order name: O2 Sat Monitoring; Complete Time: 05:12 ms3 EC:53 Rate is 81 beats/min. Rhythm is regular. QRS [place] is Normal. [place] interval is normal. QRS ms3 interval is normal. QT interval is normal. Clinical impression: Normal ECG. Interpreted by me. Reviewed by me. Administered Medications: 07:30 Drug: NS 0.9% IV 1000 ml IV at 1 bolus Per protocol; 1000 mL bolus Route: IV; Rate: 1 bp bolus; Site: left antecubital; 08:25 Follow up: Response: No adverse reaction; IV Status: Completed infusion; IV Intake: ko1 500ml 08:25 Follow up: IV Status: Completed infusion; IV Intake: 500ml ko1 07:30 Drug: Piperacillin-Tazobactam IVPB 3.375 grams IVPB once over 60 mins; (mix in NS 100 bp mL) Route: IVPB; Infused Over: 60 mins; Site: left antecubital; 08:26 Follow up: Response: No adverse reaction; IV Status: Completed infusion; IV Intake: ko1 100ml Disposition: 09/17 02:56 Chart complete. ms3 Disposition Summary: 09/17/23 08:12 Hospitalization Ordered Notes: Hospitalization Status: Observation salas Provider: Greg Cody cha Condition: Stable salas Problem: new salas Symptoms: have improved salas Bed/Room Type: Standard salas Location: Telemetry/MedSurg (observation)(09/17/23 22:18) Room Assignment: 229(09/17/23 22:18) cg Diagnosis - Abdominal tenderness salas - Diverticulitis of large intestine without perforation or abscess without bleeding salas - Elevated white blood cell count salas Forms: - Medication Reconciliation Form salas - SBAR form salas - Leadership Thank You Letter salas Signatures: Dispatcher [employer] Spencer Kendall MD MD cha Garcia, Cindy, RN RN Paul Benson RN RN bp Fadi Ramsey DO DO ms3 Madeleine Matias RN RN vc1 Zara Melchor RN ko1 Corrections: (The following items were deleted from the chart) 09/16 08:12 Telemetry/MedSurg (observation) [facility] bp 08:12 [facility] bp :57 [facility] ER HOLD bp cg ERHOLD- bp cg
--- NOTE | 2023-09-17 08:13 | ER ---
Nurse's Notes [facility] Name: Danita Yañez Age: 58 yrs Sex: Female : 1965 Arrival Date: 09/17/2023 Time: 04:31 Bed 6 Private MD: Diagnosis: Abdominal tenderness;Diverticulitis of large intestine without perforation or abscess without bleeding;Elevated white blood cell count Presentation: 09/16 04:31 Chief complaint: EMS states: She was out tonight had a few fajitas and now is vc1 complaining of abdominal pain. She was here recently with diverticulitis and said sent home with flagyl and cipro. She said she didn't like the way they made her feel and didn't finish them. 04:31 Coronavirus screen: Vaccine status: Patient reports receiving the 2nd dose of the covid vc1 vaccine. Client denies travel out of the [place] in the last 14 days. At this time, the client does not indicate any symptoms associated with coronavirus-19. Ebola Screen: Patient negative for fever greater than or equal to 101.5 degrees Fahrenheit, and additional compatible Ebola Virus Disease symptoms Patient denies exposure to infectious person. Patient denies travel to an Ebola-affected area in the 21 days before illness onset. No symptoms or risks identified at this time. Initial Sepsis Screen: Does the patient meet any 2 criteria? No. Patient's initial sepsis screen is negative. Does the patient have a suspected source of infection? No. Patient's initial sepsis screen is negative. Risk Assessment: Do you want to hurt yourself or someone else? Patient reports no desire to harm self or others. Onset of symptoms was September 17, 2023. 04:31 Method Of Arrival: EMS: [facility] 1 04:31 Acuity: CAESAR 3 vc1 Triage Assessment: 07:00 General: Appears in no apparent distress. comfortable, obese, Behavior is calm, bp cooperative, appropriate for age. Historical: - Allergies: 04:56 Ibuprofen; vc1 - PMHx: 04:56 Thyroid problem; Diverticulitis; vc1 - PSHx: 04:56 None; vc1 - Immunization history:: Client reports receiving the 2nd dose of the Covid vaccine, Flu vaccine is up to date. - Social history:: Smoking status: Patient denies any tobacco usage or history of. Screenin:21 [facility] ED Fall Risk Assessment (Adult) History of falling in the last 3 months, km8 including since admission No falls in past 3 months (0 pts) Confusion or Disorientation No (0 pts) Intoxicated or Sedated No (0 pts) Impaired Gait No (0 pts) Mobility Assist Device Used No (0 pt) Altered Elimination No (0 pt) Score/Fall Risk Level 0 - 2 = Low Risk Oriented to surroundings, Maintained a safe environment, Educated pt \T\ family on fall prevention, incl call for assistance when getting out of bed, Assessed \T\ reinforced patient's understanding of fall precautions. Abuse screen: Denies threats or abuse. Denies injuries from another. Nutritional screening: No deficits noted. Tuberculosis screening: No symptoms or risk factors identified. Assessment: 05:21 General: Appears in no apparent distress. Behavior is calm, cooperative, appropriate km8 for age. Pain: Complains of pain in epigastric area, umbilical area and suprapubic area Pain currently is 10 out of 10 on a pain scale. Quality of pain is described as burning, aching. Neuro: Level of Consciousness is awake, alert, obeys commands, Oriented to person, place, time, situation. Cardiovascular: Denies chest pain, Patient's skin is warm and dry. Respiratory: Airway is patent Respiratory effort is even, unlabored, Respiratory pattern is regular, symmetrical. GI: Abdomen is distended, Reports lower abdominal pain, upper abdominal pain, epigastric pain, nausea. : No signs and/or symptoms were reported regarding the genitourinary system. EENT: No signs and/or symptoms were reported regarding the EENT system. Derm: No signs and/or symptoms reported regarding the dermatologic system. Skin is intact, is healthy with good turgor, Skin is dry, Skin is pink, warm \T\ dry. normal, Skin temperature is warm. Musculoskeletal: No signs and/or symptoms reported regarding the musculoskeletal system. Range of motion: intact in all extremities. 06:46 Reassessment: Patient and/or family updated on plan of care and expected duration. Pain tm6 level reassessed. Patient is alert, oriented x 3, equal unlabored respirations, skin warm/dry/pink. 07:00 Reassessment: RECD REPORT FROM NAYANA CALHOUN. 60YO HF P/W ABD PAIN, RECENT DX OF bp DIVERTICULITIS. Vital Signs: 04:31 BP 119 / 67; Pulse 85; Resp 16; Temp 98.1; Pulse Ox 95% ; Weight 92.99 kg; Height 5 ft. km8 7 in. ; Pain 10/10; 05:23 BP 118 / 74; Pulse 79; Resp 16; Pulse Ox 95% on R/A; km8 05:45 BP 109 / 83; Pulse 74; Resp 16; Pulse Ox 95% on R/A; km8 06:46 BP 117 / 79; Pulse 81; Pulse Ox 97% on R/A; Pain 0/10; tm6 07:25 BP 112 / 73; Pulse 81; Resp 15; Pulse Ox 95% on R/A; ko1 04:31 Body Mass Index 32.11 (92.99 kg, 170.18 cm) km8 04:31 Pain Scale: Adult km8 06:46 Pain Scale: Adult tm6 [place] Coma Score: 05:21 Eye Response: spontaneous(4). Motor Response: obeys commands(6). Verbal Response: km8 oriented(5). Total: 15. ED Course: 04:35 Patient arrived in ED. rv1 04:37 Fadi Ramsey DO is Attending Physician. ms3 04:41 Radiology exam delayed due to lab results not completed at this time. (BUN/Creatinine) eh4 IV insertion attempt and/or patient not having appropriate IV at this time. 04:56 Triage completed. vc1 04:56 Arm band placed on right wrist. vc1 05:21 Patient has correct armband on for positive identification. Bed in low position. Call [facility] light in reach. Side rails up X2. Client placed on continuous cardiac and pulse oximetry monitoring. NIBP monitoring applied. monitoring manager on. Pulse ox on. NIBP on. Door closed. Visitors limited. Lights dimmed. Warm blanket given. 05:21 Initial lab(s) drawn, by me, sent to lab. EKG done, by ED staff, reviewed by Fadi Ramsey DO. 05:21 Maintain EMS IV. Dressing intact. Good blood return noted. Site clean \T\ dry. Gauge \T\ km 8 site: 20 gauge left AC. Patient maintains SpO2 saturation greater than 95% on room air. 05:25 Troponin HS Sent. oe 05:25 Magnesium Sent. oe 05:25 CBC with Diff Sent. oe 05:25 Basic Metabolic Panel Sent. oe 05:28 XRAY Chest (1 view) In Process Unspecified. EDMS 05:31 Francesca Cruz, RN is Primary Nurse. km8 06:14 Patient moved back from CT. km8 06:18 CT Abd/Pelvis - IV Contrast Only In Process Unspecified. EDMS 06:45 No provider procedures requiring assistance completed. km8 06:54 Attending Physician role handed off by Fadi Ramsey DO ms3 06:54 Spencer Warner MD is Attending Physician. ms3 08:11 Greg Cody is Hospitalizing Provider. [facility] 21:44 Provided Education on: need for admit. as6 21:44 Patient admitted, IV remains in place. as6 Administered Medications: 07:30 Drug: NS 0.9% IV 1000 ml IV at 1 bolus Per protocol; 1000 mL bolus Route: IV; Rate: 1 bp bolus; Site: left antecubital; 08:25 Follow up: Response: No adverse reaction; IV Status: Completed infusion; IV Intake: ko1 500ml 08:25 Follow up: IV Status: Completed infusion; IV Intake: 500ml ko1 07:30 Drug: Piperacillin-Tazobactam IVPB 3.375 grams IVPB once over 60 mins; (mix in NS 100 bp mL) Route: IVPB; Infused Over: 60 mins; Site: left antecubital; 08:26 Follow up: Response: No adverse reaction; IV Status: Completed infusion; IV Intake: ko1 100ml Medication: 05:54 VIS not applicable for this client. km8 Intake: 08:25 IV: 500ml; Total: 500ml. ko1 08:25 IV: 500ml; Total: 1000ml. ko1 08:26 IV: 100ml; Total: 1100ml. ko1 Outcome: 08:12 Decision to Hospitalize by Provider. salas 21:44 Admitted to ER Hold. Please see [facility] for further documentation. as6 21:44 Condition: stable 21:44 Instructed on the need for admit, 09/17 00:11 Patient left the ED. as6 Signatures: Dispatcher [employer] EDMS Spencer Warner MD MD cha Espinosa, Orlando oe Peltier, Brian, RN RN Fadi Ramsey DO DO ms3 Baltazar Li RN RN as6 Madeleine Matias RN RN vc1 [facility]4 Zara Melchor, RN RN ko1 Corie Strong 1 Francesca Cruz RN RN km8 Maria T Mir RN RN tm6 Corrections: (The following items were deleted from the chart) 09/16 05:24 04:31 Pulse 85bpm; Resp 16bpm; Pulse Ox 95%; Temp 98.1F; 92.99 kg; Height 5 ft. 7 in.; km8 BMI: 32.1; Pain 04/18, Adult; vc1
--- NOTE | 2023-09-17 08:50 | P.HP ---
Certification for Inpatient Patient admitted to: Inpatient With expected LOS: >2 Midnights Patient will require the following post-hospital care: None Practitioner: I am a practitioner with admitting privileges, knowledge of patient current condition, hospital course, and medical plan of care. Services: Services provided to patient in accordance with Admission requirements found in Title 42 Section 412.3 of the Code of Federal Regulations Patient History Date of Service: 09/17/23 Reason for admission: Acute diverticulitis History of Present Illness: Danita Yañez is a 58-year-old female with past medical history of diverticulitis, hypothyroidism, and hypertension who presents the ED with chief complaint of abdominal pain for 3 weeks which started with constipation. She has been on antibiotics for 2 and half weeks with no change. Still feeling nauseous and constipated, but she has been able to have bowel movements recently. Last night after eating she felt great indigestion which caused shortness of breath. Her last diverticulitis episode was 12 years ago. Initial vitals: BP 119 / 67; Pulse 85; Resp 16; Temp 98.1; Pulse Ox 95% Laboratory evaluation WBC 15.7, H&H stable, serum glucose 128, lipase 25, troponin 3.6. Chest x-ray reports "No acute cardiopulmonary disease" CT abdomen pelvis reports "uncomplicated acute diverticulitis of the distal descending and proximal sigmoid colon." Danita will be admitted to hospitalist service for further evaluation and treatment of acute diverticulitis. Allergies ibuprofen Allergy (Verified 05/28/18 21:16) Itching/Hives/Rash Home Medications: Levothyroxine [Synthroid*] 0.075 mcg PO DAILY 05/28/18 Lisinopril/Hydrochlorothiazide [Zestoretic 10-12.5 mg Tablet] 1 each PO DAILY #30 tablet 05/30/18 - Past Medical/Surgical History Diabetic: No -: HTN -: Hypothyrodism -: Diverticulitis -: Hysterectomy - Family History Father -: Hypertension, Diabetes Mother -: Hypertension, Diabetes Brother -: Hypertension Sister -: Hypertension - Social History Smoking Status: Never smoker Alcohol use: Yes CD- Drugs: No Caffeine use: Yes Review of Systems Respiratory: Shortness of Breath Gastrointestinal: Nausea, Constipation (with recent BMs) Physical Examination - Physical Exam General: Alert, In no apparent distress, Oriented x3 HEENT: Atraumatic, Normocephalic, PERRLA Neck: Supple, 2+ carotid pulse no bruit, JVD not distended Respiratory: Clear to auscultation bilaterally, Normal air movement Cardiovascular: Normal pulses, Regular rate/rhythm, Normal S1 S2 Capillary refill: <2 Seconds Gastrointestinal: Normal bowel sounds, Soft and benign, No tenderness Musculoskeletal: No clubbing, No swelling Integumentary: No breakdown, No significant lesion - Studies Laboratory Data (last 24 hrs) 09/17/23 09/17/23 05:19 05:19 WBC 15.70 H Hgb 13.3 Hct 40.9 Plt Count 284 Sodium 140 Potassium 3.8 BUN 15 Creatinine 0.82 Glucose 128 H Magnesium 2.3 Lipase 25 Assessment and Plan - Plan Assessment and plan Acute uncomplicated diverticulitis Leukocytosis Nausea WBC 15.7 Zosyn started in ED will continue on the floor IV fluid N.p.o. Antiemetics, pain medicine History hypertension History of hypothyroidism Continue home medications when available DVT PPx Lovenox Full code LOS 2 days Discharge Plan: Home Plan to discharge in: 48 Hours - Advance Directives Does patient have a Living Will: No Does patient have a Durable POA for Healthcare: No Time Spent Managing Pts Care (In Minutes): 50
[2023-09-17] MEDS: ENOXAPARIN 40 MG/0.4 ML SQ SCH (09:00)
[2023-09-17] MEDS: NA CHLORIDE 0.9% 1,000 ML IV SCH (09:00)
[2023-09-17] MEDS ORDERED: MORPHINE 2 MG/ML SYR IV PRN (09:03)
[2023-09-17] MEDS ORDERED: ONDANSETRON 4 MG/2 ML VIAL IV PRN (09:03)
--- NOTE | 2023-09-17 09:12 | RAD REPORT ---
EXAM DESCRIPTION: RAD - Chest Single View - 09/17/2023 5:26 am CLINICAL HISTORY: CHEST PAIN COMPARISON: Chest Single View dated 05/28/2018; CHEST PA AND LAT 2 VIEW dated 05/05/2015; ABDOMEN 1 VIEW KUB dated 12/17/2014; CHEST PA AND LAT 2 VIEW dated 09/18/2012; Abdomen Pelvis W Contrast dated 09/17/2023 FINDINGS: Lines: None. Lungs: No evidence of edema or pneumonia. Pleural: No significant pleural effusions or pneumothorax. Cardiac: The heart size is within normal limits. Mediastinum: Within normal limits. Bones: No acute fractures. Other: None IMPRESSION: No acute cardiopulmonary disease.
[2023-09-17] MEDS ORDERED: ENOXAPARIN 40 MG/0.4 ML SQ ONE (09:50)
[2023-09-17] MEDS: PIPER TAZO 3.375 GM in NA CHLORIDE 0.9% 100 ML IV SCH (16:00)
[2023-09-18 01:18] VITALS: BMI 32.6
[2023-09-18 04:21] LABS: Absolute Eosinophils 0.1 K/uL (0-0.5); Absolute Lymphocytes (CBC) 1.3 K/uL (0.7-4.9); Basophils % 0.2 % (0-1.3); Eosinophils % 1.2 % (0-4.4); Lymphocytes % 16.4 % (15.3-44.8); MPV 7.8 fL (7.6-11.3); Platelets 248 thou/uL (152-406); RBC Red Blood Cell Count 4.56 M/uL (3.86-4.86)
[2023-09-18 04:34] LABS: Anion Gap 6.3 mEq/L (5.0-15.0); Magnesium 2.2 mg/dL (1.6-2.4); Phosphorus 2.8 mg/dL (2.5-4.9); Potassium 3.3 mEq/L (3.5-5.1)
[2023-09-18] MEDS: KCL 20 MEQ/100 mL IVPB 20 MEQ/100 ML BAG IV SCH (05:49)
--- NOTE | 2023-09-18 08:44 | P.PN ---
Date of Service: 09/18/23 Subjective Still will lower abdominal pain, nausea more controlled toelrating IV abx well Advancing diet to CLD ROS 10 point ROS as noted above, otherwise negative Physical Exam General: AAOx3, NAD HEENT: Atraumatic, Normocephalic, PERRLA Neck: Supple, 2+ carotid pulse no bruit, JVD not distended Respiratory: Clear to auscultation bilaterally, Normal air movement Cardiovascular: RRR, Normal S1 S2, no murmur noted Capillary refill: <2 Seconds Gastrointestinal: bowel sounds present, Soft and benign, lower abdominal pain on palpation Musculoskeletal: No clubbing, No swelling Integumentary: No breakdown, No significant lesion Vitals Reviewed Problem list Acute uncomplicated diverticulitis Leukocytosis Nausea History hypertension History of hypothyroidism Assessment and Plan Acute uncomplicated diverticulitis Leukocytosis Nausea WBC 7.7 Zosyn for one more day IV fluid CLD Antiemetics, pain medicine History hypertension History of hypothyroidism Continue home medications when available DVT PPx Lovenox Full code LOS Likely discharge tomorrow 09/18
--- NOTE | 2023-09-18 10:29 | RAD REPORT ---
EXAM DESCRIPTION: CT - Abdomen Pelvis W Contrast - 09/17/2023 8:13 am CLINICAL HISTORY: Abdominal pain. History of diverticulitis. COMPARISON: CT abdomen December 25, 2017 TECHNIQUE: Without oral contrast administration, and after intravenous administration of iodinated c ontrast, contiguous axial sections are obtained through the abdomen and pelvis including delayed imag ing, as per protocol. Sagittal and coronal reformations are obtained. Automatic exposure control (AEC ), mA and/or kV adjustment by patient size, and/or iterative reconstructive technique was used, per d epartmental dose optimization program, during the performance of the CT examination. FINDINGS: The visualized lung bases are normal. The liver is normal in size, attenuation, enhancement and outline. Spleen is normal limits in size and demonstrates no focal abnormalities. Normal appearance of the biliary tree, pancreas and adrenal glands are noted. The gallbladder is unremarkable.. The kidneys demonstrate no evidence of renal calculi or calcifications. The kidneys demonstrate normal size, shape and outline demonstrating normal enhancement. Normal appearance of the aorta, IVC and retroperitoneum are noted. Stomach appears normal. The small bowel loops appear normal. The appendix is normal. Evidence of diffuse colonic wall thickening with pericolonic inflammatory changes are noted in the di stal descending and proximal sigmoid colon most consistent with uncomplicated acute diverticulitis. There is no evidence of free intraperitoneal fluid or air. CT examination of the pelvis demonstrates no evidence of mass or lymphadenopathy. The urinary bladder appears unremarkable. The Uterus and ovaries are surgically absent.. There is no evidence of ingui nal lymphadenopathy. The visualized bony structures are normally mineralized. Disc degeneration and significant facet arth ropathy at L3-L4 creates moderate spinal canal stenosis. Presence of 2 bone islands are noted in the left femoral head. IMPRESSION: Uncomplicated acute diverticulitis of the distal descending and proximal sigmoid colon. Electronically signed by: Magy Romero MD 09/17/2023 08:00 AM CDT Due to temporary technical issues with the PACS/Fluency reporting system, reports are being signed by the in house radiologist without review as a courtesy to ensure prompt reporting. The interpreting r adiologist is fully responsible for the content of the report.
[2023-09-19 03:55] LABS: Absolute Eosinophils 0.1 K/uL (0-0.5); Absolute Lymphocytes (CBC) 1.7 K/uL (0.7-4.9); Basophils % 0.4 % (0-1.3); Eosinophils % 2.6 % (0-4.4); Hematocrit 36.4 % (36.0-45.0); Hemoglobin 12.1 g/dL (12.0-15.0); MPV 7.5 fL (7.6-11.3); Platelets 249 thou/uL (152-406); RBC Red Blood Cell Count 4.61 M/uL (3.86-4.86)
[2023-09-19 04:18] LABS: Anion Gap 8.6 mEq/L (5.0-15.0); Magnesium 2.1 mg/dL (1.6-2.4); Phosphorus 3.2 mg/dL (2.5-4.9); Potassium 3.6 mEq/L (3.5-5.1)
--- NOTE | 2023-09-19 08:52 | P.DS ---
Admission Date: 09/17/23 Discharge Date: 09/19/23 Reason for Admission: Acute diverticulitis Brief History of Present Illness: Danita Yañez is a 58-year-old female with past medical history of diverticulitis, hypothyroidism, and hypertension who presents the ED with chief complaint of abdominal pain for 3 weeks which started with constipation. She has been on antibiotics for 2 and half weeks with no change. Still feeling nauseous and constipated, but she has been able to have bowel movements recently. Last night after eating she felt great indigestion which caused shortness of breath. Her last diverticulitis episode was 12 years ago. Initial vitals: BP 119 / 67; Pulse 85; Resp 16; Temp 98.1; Pulse Ox 95% Laboratory evaluation WBC 15.7, H&H stable, serum glucose 128, lipase 25, troponin 3.6. Chest x-ray reports "No acute cardiopulmonary disease" CT abdomen pelvis reports "uncomplicated acute diverticulitis of the distal descending and proximal sigmoid colon." Danita will be admitted to hospitalist service for further evaluation and treatment of acute diverticulitis. Hospital Course: Problem list Acute uncomplicated diverticulitis Leukocytosis Nausea History hypertension History of hypothyroidism Patient was admitted to the hospital for acute diverticulitis, she had previously been on antibiotics Cipro/Flagyl for 2 weeks without improvement prior to or arrival to the hospital. She was treated with IV Zosyn and had improvement in her white blood cell count and pain. She has tolerated her diet and is feeling much better this morning, stable for discharge at this time. Patient reports she had a Cologuard in the past that was negative but has never had a colonoscopy, discussed recommendation for colonoscopy in 6 to 8 weeks to further evaluate resolution/cause of diverticulitis and rule out malignancy. New prescriptions: Augmentin 875 mg by mouth twice daily for 8 days Continue other home medications as prescribed Please follow-up your primary care doctor in 1 to 2 weeks Please call and schedule appointment with a GI doctor to arrange for colonoscopy in 6 to 8 weeks <Nelson Ramirez - Last Filed: 09/19/23 08:51> Admission Date: 09/17/23 Discharge Date: 09/19/23 <Marty Sal - Last Filed: 09/19/23 20:54> Disposition: ROUTINE DISCHARGE Discharge Condition: GOOD Vital Signs/Physical Exam: Temp Pulse Resp BP Pulse Ox 97.7 F 58 15 121/76 95 09/19/23 04:00 09/19/23 04:00 09/19/23 04:00 09/19/23 04:00 09/19/23 04:00 General: Alert, In no apparent distress, Oriented x3 HEENT: Atraumatic, PERRLA Neck: Supple, JVD not distended Respiratory: Clear to auscultation bilaterally, Normal air movement Cardiovascular: Regular rate/rhythm, Normal S1 S2 Gastrointestinal: Normal bowel sounds, No tenderness Musculoskeletal: No tenderness Integumentary: No rashes Neurological: Normal speech, Normal tone, Normal affect Laboratory Data at Discharge: WBC 5.70 thou/uL (4.3-10.9) 09/19/23 03:19 Hgb 12.1 g/dL (12.0-15.0) 09/19/23 03:19 Hct 36.4 % (36.0-45.0) 09/19/23 03:19 Plt Count 249 thou/uL (152-406) 09/19/23 03:19 Sodium 142 mEq/L (136-145) 09/19/23 03:19 Potassium 3.6 mEq/L (3.5-5.1) 09/19/23 03:19 BUN 7 mg/dL (7-18) 09/19/23 03:19 Creatinine 0.63 mg/dL (0.55-1.02) 09/19/23 03:19 Glucose 90 mg/dL (74-106) 09/19/23 03:19 Phosphorus 3.2 mg/dL (2.5-4.9) 09/19/23 03:19 Magnesium 2.1 mg/dL (1.6-2.4) 09/19/23 03:19 Triglycerides 96 mg/dL (<150) 09/18/23 03:37 Cholesterol 120 mg/dL (<200) 09/18/23 03:37 HDL Cholesterol 46 mg/dL (40-60) 09/18/23 03:37 Cholesterol/HDL Ratio 2.61 09/18/23 03:37 Lipase 25 U/L (13-75) 09/17/23 05:19 <Nelson Ramirez - Last Filed: 09/19/23 08:51> Vital Signs/Physical Exam: Temp Pulse Resp BP Pulse Ox 97.9 F 57 20 140/84 94 09/19/23 08:00 09/19/23 08:00 09/19/23 08:00 09/19/23 08:00 09/19/23 08:00 Laboratory Data at Discharge: WBC 5.70 thou/uL (4.3-10.9) 09/19/23 03:19 Hgb 12.1 g/dL (12.0-15.0) 09/19/23 03:19 Hct 36.4 % (36.0-45.0) 09/19/23 03:19 Plt Count 249 thou/uL (152-406) 09/19/23 03:19 Sodium 142 mEq/L (136-145) 09/19/23 03:19 Potassium 3.6 mEq/L (3.5-5.1) 09/19/23 03:19 BUN 7 mg/dL (7-18) 09/19/23 03:19 Creatinine 0.63 mg/dL (0.55-1.02) 09/19/23 03:19 Glucose 90 mg/dL (74-106) 09/19/23 03:19 Phosphorus 3.2 mg/dL (2.5-4.9) 09/19/23 03:19 Magnesium 2.1 mg/dL (1.6-2.4) 09/19/23 03:19 Triglycerides 96 mg/dL (<150) 09/18/23 03:37 Cholesterol 120 mg/dL (<200) 09/18/23 03:37 HDL Cholesterol 46 mg/dL (40-60) 09/18/23 03:37 Cholesterol/HDL Ratio 2.61 09/18/23 03:37 Lipase 25 U/L (13-75) 09/17/23 05:19 <Marty Sal - Last Filed: 09/19/23 20:54> Diet: low fiber Activity: Ad anthony Time spent managing pt's care (in minutes): 30 <Nelson Ramirez - Last Filed: 09/19/23 08:51> Physician Review: Patient Assessed, Agree with Above Assessment and Plan (Patient seen and examined on rounds this morning with SANITATION MANAGER James. Patient feels much improved. No nausea, tolerating diet. Stable for discharge. Reviewed importance of follow up, and colonoscopy in near future. Avoid laxatives/high fiber diet for now, but will benefit from high fiber in the future.) <Marty Sal - Last Filed: 09/19/23 20:54> Home Medications: Amlodipine [Norvasc*] 2.5 mg PO DAILY 09/18/23 Levothyroxine Sodium 75 mcg PO DAILY 09/18/23 Olmesartan Medoxomil 20 mg PO DAILY 09/18/23 Amox/Clavulanate [Augmentin 875-125 Tab] 875 mg PO BID 8 Days #16 tab 09/19/23 New Medications: Amox/Clavulanate [Augmentin 875-125 Tab] 875 mg PO BID 8 Days #16 tab Physician Discharge Instructions: PROBLEM: acute diverticulitis GOAL: Clear understanding of disease process INSTRUCTIONS: Physician discharge instructions Patient was admitted to the hospital for acute diverticulitis, she had previously been on antibiotics Cipro/Flagyl for 2 weeks without improvement prior to or arrival to the hospital. She was treated with IV Zosyn and had improvement in her white blood cell count and pain. She has tolerated her diet and is feeling much better this morning, stable for discharge at this time. Patient reports she had a Cologuard in the past that was negative but has never had a colonoscopy, discussed recommendation for colonoscopy in 6 to 8 weeks to further evaluate resolution/cause of diverticulitis and rule out malignancy. New prescriptions: Augmentin 875 mg by mouth twice daily for 8 days Continue other home medications as prescribed Please follow-up your primary care doctor in 1 to 2 weeks Please call and schedule appointment with a GI doctor to arrange for colonoscopy in 6 to 8 weeks Diet: low fiber Activity: Ad anthony Followup: NONE,NONE [Primary Care Provider] - 1-2 Weeks Hawk Ordonez MD [ASSOCIATE-ACTIVE - CAN ADMIT] - 1-2 Weeks
[2023-09-19 09:26] VITALS: BP 140/84; TEMP 97.9
[2023-09-19] MEDS: POTASSIUM CL SA 10 MEQ TAB PO ONE (09:30)
[2023-09-19 11:20] VITALS: O2SAT 94
== END 2023-09-19 10:30 | disposition home or self-care (01) | DRG 392 ==
LOC: ER 04:31 → ERHOLD 08:51 → 2ND 23:58
PROVIDERS: ADMIT Internal Medicine; ATTEND Hospitalist
DX: K57.32 Diverticulitis of large intestine without perforation or abscess without bleeding (principal); E03.9 Hypothyroidism, unspecified; I10 Essential (primary) hypertension; D72.829 Elevated white blood cell count, unspecified; Z88.8 Allergy status to other drugs, medicaments and biological substances; Z79.890 Hormone replacement therapy; Z79.899 Other long term (current) drug therapy; Z90.710 Acquired absence of both cervix and uterus
CPT/HCPCS: 36415; 71045; 74177; 80048; 80061; 83690; 83735; 84100; 84132; 84484; 85025; 96365; 99285; J1650; J2543; J3480; J7030; Q9967

== ENCOUNTER 2024-11-25 23:59 | Emergency (ER) | payer OTHER ==
--- OUTSIDE RECORDS SUMMARY | 2024-11-26 00:04 | XMS REPORT | Continuity of Care Document ---
Author Name Unknown Address [address] [facility] [address] [place] [address] [facility] Address [address] [facility] [place] [address] Care Team Providers Care Inspector Toys Name Role Phone PAULINA MEDINA Primary Care Physician Unavailab Светлана Shaikh Attending Clinician Unavailable YONG LIZARRAGA Attending Clinician Unavailable Yong Lizarraga DO Attending Clinician [phone] MANNY SLATER Attending Clinician Unavaila MANNY Hines Attending Clinician Unavaila GEOVANNY Castrejon Attending Clinician GEOVANNY Garza Attending Clinician PAULINA Dumont Attending Clinician Unava ilable JOVITATERRI MCKAY Attending Clinician Unavailable LAB90 Attending Clinician Unavailable Paulina Medina MD Attending Clinician [phone] INFUSION, KAHLIL Attending Clinician Unavailable LEYDI AVINA Attending Clinician Unavailable MAICOL LOPEZ Attending Clinician Unavaila ble Infusion, Kahlil Attending Clinician Unavailable IVKAHLIL Merritt Attending Clinician Unavailable JUAN MANUEL GREEN Attending Clinician Unavailable MARCO JACOB Attending Clinician Unavailable MERARY VELASQUEZ Attending Clinician UnavailGARRETT Cobb Attending Clinician Unavailable LAB39 Attending Clinician Unavailable Jovita Terri FAIRCHILD Attending Clinician [phone] Ivt, Kahlil Attending Clinician Unavailable DARLENE JEFF Attending Clinician Unavailable LANDEN HARRIS Attending Clinician Unavailable YONG LIZARRAGA Admitting Clinician Unavailable MANNY SLATER Admitting Clinician Unavailjaxson ble Payers Payer Name Policy Type Policy Number Effective Date Expirati on Date Source Jaret [facility] 53 [id number] [facility] HIM AMBETTER FROM [facility] [id number] 2023 00:00:00 [facility] PPO [id number] 2022 00:00:00 [facility] 3 [id number] 2022 00:00:00 Problems Condition Name Condition Details Condition Category Status Onset Date Resolution Date Last Treatment Date Treating Clinician Comments Source Well woman exam with routine gynecologi tori exam Well woman exam with routine gynecologi tori exam Disease Active 2021-07 00:00: 00 [facility] BMI 33.0-33.9, adult BMI 33.0-33.9, adult Disease Active 2021-07 00:00: 00 [facility] 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 11-26 00:00: 00 [facility] Seasonal allergies Seasonal allergies Disease Active 11-26 00:00: 00 [facility] PND (post-nasa l drip) PND (post-nasa l drip) Disease Active 11-26 00:00: 00 Monika Silva Iron deficiency anemia Iron (Fe) deficiency anemia Problem [facility] Hypothyroi dism Hypothyroi dism Problem [facility] Obesity Obesity Problem [facility] Varicose veins with swelling Varicose veins with swelling Problem [facility] [id number] Varicose veins of both legs with edema Problem [facility] Essential hypertensi on Essential (primary) hypertensi on Problem [facility] Chronic kidney disease stage 2 Chronic kidney disease, stage 2 (mild) Problem [facility] Anemia in chronic kidney disease Anemia in chronic kidney disease Problem [facility] Vitamin D deficiency Vitamin D deficiency Problem [facility] Allergies, Adverse Reactions, Alerts Allergy Name Allergy Type Status Severity Reaction(s) Onset Date Inactive Date Treating Clinician Comments Source Ibuprofe n Propensi ty to adverse reaction s Active Itching 12-27 00:00: 00 [facility] IBUPROFE N DRUG INGREDI Active Low ITCHING 12-27 00:00: 00 [facility] NO KNOWN ALLERGIE S Drug Class Active [facility] ibuprofe n ibuprofe n Active Unknown [facility] Social History Social Habit Start Date Stop Date Quantity Comments Source [facility] Use [facility] Sex Assigned At [facility] Alcohol intake 2023-09-11 00:00:00 2023-09-11 00:00:00 Current drinker of alcohol (finding) [facility] History of Social function 2023-09-11 00:00:00 2023-09-11 00:00:00 [facility] Exposure to SARS-CoV-2 (event) 2022-06-12 00:00:00 2022-06-22 09:28:00 Not sure [facility] Tobacco use and exposure 2022-06-21 00:00:00 2022-06-21 00:00:00 Smokeless tobacco non-user [facility] Alcohol Comment 2022-06-21 00:00:00 2022-06-21 00:00:00 socially [facility] Smoking Status Start Date Stop Date Source Never Smoker [facility] Medications Ordered Medication Name Filled Medication Name Start Date Stop Date Current Medication? Ordering Clinician Indication Dosage Frequency Signature (SIG) Comments Components Source Semaglutide -Weight Management 0.5 MG/0.5ML Semaglutide -Weight Management 0.5 MG/0.5ML 03-08 00:00: 00 No Semaglutid e-Weight Management 0.5 MG/0.5ML amLODIPine Besylate 5 MG amLODIPine Besylate 5 MG 02-26 00:00: 00 No 1{table t} QD amLODIPine Besylate 5 MG piperacilli n-tazobacta m (ZOSYN) 3.375 g in NaCl 0.9% (NS) 100 mL MINI-BAG 09-10 11:15: 00 09-10 11:50 :00 No 3.375g 3.375 g, IV Piggyback, ONCE, 1 dose, On Mon09/11/23 at 0515, Administer over 30 Minutes, 100 mL
Reas on for Anti-Infec tive: Empiric Therapy for Suspected Infection< br>Empiric Therapy Site: Abdominal< br>Duratio n of therapy: Once (ED) [facility] iopamidol (ISOVUE 370-500 mL) injection 100 mL 09-10 11:15: 00 09-10 11:15 :00 No [id number] 100mL 100 mL, Intravenou s, ONCE, 1 dose, On Mon09/11/23 at 0515, Routine [facility] ondansetron (ZOFRAN (PF)) injection 4 mg 09-10 10:15: 09-10 09:10 :00 No 4mg 4 mg, Slow IV Push, ONCE, 1 dose, On Mon09/11/23 at 0415, Routine [facility] NaCl 0.9% (NS) bolus infusion 1,000 mL 09-10 09:15: 00 09-10 11:12 :00 No 1000mL at 999 mL/hr, 1,000 mL, IV Infusion, ONCE, 1 dose, On Mon09/11/23 at 0315, STAT [facility] ciprofloxac in HCl 500 mg tablet 09-10 00:00: 00 Yes [id number] 500mg Take 1 tablet by mouth in the morning and 1 tablet in the evening. [facility] metroNIDAZO LE 500 mg tablet 09-10 00:00: 00 Yes [id number] 500mg Take 1 tablet by mouth in the morning and 1 tablet in the evening. [facility] ondansetron 4 mg disintegrat ing tablet 09-10 00:00: 00 Yes [id number] 4mg Take 1 tablet by mouth every 8 (eight) hours as needed for Nausea and Vomiting (N/V). [facility] amLODIPine Besylate 2.5 MG amLODIPine Besylate 2.5 MG 2022-07 003 00:00: 00 No 1{table t} QD amLODIPine Besylate 2.5 MG Losartan Potassium 25 MG Losartan Potassium 25 MG 03-07 00:00: 00 No 1{table t} QD Losartan Potassium 25 MG Cholecalcif sorin, Vitamin D3, 125 mcg (5,000 unit) capsule 2021-07 10:31: 25 Yes 1{capsu le} Take 1 capsule by mouth. [facility] Bacillus coagulans-I nulin 1 billion-250 cell-mg Cap 2021-07 10:31: 25 Yes 1{capsu le} Take 1 capsule by mouth. [facility] vitamin C with kayla hips 1,000 mg tablet 2021-07 10:31: 25 Yes 1000mg Take 1,000 mg by mouth. [facility] aspirin 81 mg EC tablet 2021-07 10:31: 08 06-21 00:00 :00 No 81mg Take 81 mg by mouth. [facility] amLODIPine 5 mg tablet 2021-07 00:00: 00 Yes [facility] Aspirin 81 MG oral Tablet Delayed Response [...] mouth 3 times a week Monika Silva Amlodipine Besylate 5 MG oral Tablet 11-19 00:00: 00 Yes [id number] 5mg Take 1 tablet (5 mg total) by mouth daily Monika Silva guaiFENesin -Codeine (Cheratussi n AC) 100-10 MG/5ML oral Syrup -03 00:00: 00 11-19 00:00 :00 No 10mL [...] mouth 3 times a week Monika Silva Amlodipine Besylate 5 MG oral Tablet 10-22 00:00: 00 Yes [id number] 5mg Take 1 tablet (5 mg total) [...] 125 MCG (5000 UT) oral Capsule 2020-07 0 15:01: 34 Yes 1{capsu le} Take 1 capsule by mouth 3 times a week Monika Silva Bacillus Coagulans-I nulin (Probiotic) 1-250 BILLION-MG oral Capsule 2020-07 008 15:01: 34 Yes 1{capsu le} Take 1 capsule by mouth 3 times a week Monika Silva Aspirin (Aspirin 81) 81 MG oral Tablet Delayed Response 2020-07 14:55: 28 Yes 81mg Take 81 mg by mouth daily Monika Silva Amlodipine Besylate 5 MG oral Tablet 11-26 00:00: 00 Yes [id number] 5mg Take 1 tablet (5 mg total) by mouth daily Monika Silva Loratadine (Claritin) 10 MG oral tablet 11-26 00:00: 00 11-19 00:00 :00 No [id number] 1{tbl} Take 1 tablet by mouth daily Monika Silva Montelukast (Singulair) 10 MG oral Tablet tablet 11-26 00:00: 00 11-19 00:00 :00 No [id number] 10mg Take 1 tablet (10 mg total) by mouth nightly Monika Silva Levothyroxi ne Sodium 75 MCG Levothyroxi ne Sodium 75 MCG No QD Levothyrox ine Sodium 75 MCG Zinc 50 MG Zinc 50 MG No 1{ table t} QD Zinc 50 MG Olmesartan Medoxomil 20 MG Olmesartan Medoxomil 20 MG No QD Olmesartan Medoxomil 20 MG Singulair 10 MG Singulair 10 MG No 1{table t} QD Singulair 10 MG Immunizations Ordered Immunization Name Filled Immunization Name Date Status Comments Source SARS-COV-2 COVID-19 PFIZER VACCINE 2020-09-26 00:00:00 Completed [facility] SARS-COV-2 COVID-19 PFIZER VACCINE 2020-09-26 00:00:00 Completed [facility] SARS-COV-2 COVID-19 PFIZER VACCINE 2020-09-05 00:00:00 Completed [facility] SARS-COV-2 COVID-19 PFIZER VACCINE 2020-09-05 00:00:00 Completed [facility] Shingles IM (Shingrix) 2019-10-09 00:00:00 Completed Monika Silva Shingles IM (Shingrix) 2019-10-09 00:00:00 Completed Monika Silva Shingles IM (Shingrix) 2019-10-09 00:00:00 Completed Monika Silva Shingles IM (Shingrix) 2019-10-09 00:00:00 Completed Monika [...] Seybold Tdap- (Boostrix, Adacel) 2017-10-11 00:00:00 Completed Mnoika Seybold Tdap- (Boostrix, Adacel) 2017-10-11 00:00:00 Completed [...] months and up 2017-05-03 00:00:00 Completed Monika Semarczarina Influenza Virus Vaccine, age 6 months and up 2017-05-03 00:00:00 Completed Monika Silva SARS-COV-2 COVID-19 PFIZER VACCINE Unknown Completed [facility] Vital Signs Vital Name Observation Time Observation Value Comments S ource height 2024-03-08 09:30:00 65 [in_i] [facility] weight-kg 2024-03-08 09:30:00 92.9 kg [facility] bmi 2024-03-08 09:30:00 34.08 kg/m2 [facility] heart rate 2024-03-08 09:30:00 75 /min [facility] blood pressure systolic 2024-03-08 09:30:00 136 mm[Hg] [facility] blood pressure diastolic 2024-03-08 09:30:00 96 mm[Hg] [facility] height 2024-02-27 10:45:00 65 [in_i] [facility] weight-kg 2024-02-27 10:45:00 93.89 kg [facility] bmi 2024-02-27 10:45:00 34.44 kg/m2 [facility] temperature 2024-02-27 10:45:00 97.8 [degF] [facility] respiratory rate 2024-02-27 10:45:00 16 /min [facility] heart rate 2024-02-27 10:45:00 77 /min [facility] blood pressure systolic 2024-02-27 10:45:00 150 mm[Hg] [facility] blood pressure diastolic 2024-02-27 10:45:00 102 mm[Hg] [facility] Systolic blood pressure 2023-09-11 11:00:00 107 mm[Hg] [facility] Diastolic blood pressure 2023-09-11 11:00:00 70 mm[Hg] [facility] Heart rate 2023-09-11 11:00:00 92 /min [facility] Respiratory rate 2023-09-11 11:00:00 15 /min [facility] Oxygen saturation in Arterial blood by Pulse oximetry 2023-09-11 11:00:00 96 /min [facility] Body weight 2023-09-11 08:58:00 92.987 [facility] BMI 2023-09-11 08:58:00 32.11 kg/m2 [facility] Body temperature 2023-09-11 08:58:00 36.89 Nathalia [facility] Body height 2023-09-11 08:58:00 170.2 cm [facility] Systolic blood pressure 2022-06-21 16:27:00 115 mm[Hg] [facility] Diastolic blood pressure 2022-06-21 16:27:00 75 mm[Hg] [facility] Heart rate 2022-06-21 16:27:00 83 /min [facility] Body temperature 2022-06-21 16:27:00 37.11 Nathalia [facility] Respiratory rate 2022-06-21 16:27:00 16 /min [facility] Body height 2022-06-21 16:27:00 167.6 cm [facility] Body weight 2022-06-21 16:27:00 93.849 kg [facility] BMI 2022-06-21 16:27:00 33.39 kg/m2 [facility] Oxygen saturation in Arterial blood by Pulse oximetry 2022-06-21 16:27:00 96 /min [facility] Systolic blood pressure 2021-11-22 18:47:00 131 mm[Hg] [...] Respiratory rate 2021-04-16 19:47:00 18 /min Monika Silva Body height 2021-04-16 19:47:00 167.6 cm Ami Silva Body weight 2021-04-16 19:47:00 93.441 kg Ami Silva BMI 2021-04-16 19:47:00 33.25 kg/m2 Ami Silva Oxygen saturation in Arterial blood by Pulse oximetry 2021-04-16 19:47:00 96 /min Monika Jc ld Procedures Procedure Date / Time Performed Performing Clinicia n Source CT ABDOMEN PELVIS W CONTRAST 2023-09-11 10:23:39 Yong Lizarraga [facility] URINALYSIS 2023-09-11 09:28:00 Yong Lizarraga [facility] LIPASE 2023-09-11 09:05:00 LizarragaYong [facility] COMP. METABOLIC PANEL (90805) 2023-09-11 09:05:00 Yong Lizarraga [facility] CBC WITH DIFF 2023-09-11 09:05:00 Yong Lizarraga [facility] CONSENT/REFUSAL FOR DIAGNOSIS AND TREATMENT 2023-09-11 08:53:05 Doctor Unassigned, [place] [facility] Encounters Start Date/Time End Date/Time Encounter Type Admission Type Attending [facility] Care Facility Care Department Encounter ID Source 2024-02-27 10:37:02 Outpatient Светлана Billings [facility] [id number] [facility] 2024-06-20 00:00:00 2024-06-20 00:00:00 (TEL) [facility] CLS [id number] [facility] 2024-04-01 00:00:00 2024-04-01 00:00:00 (TEL) [facility] CLS [id number] [facility] 2024-03-08 00:00:00 2024-03-08 00:00:00 Office Visit- New Pt.- Level 4 C[facility] CLS [id number] [facility] 2024-02-27 00:00:00 2024-02-27 00:00:00 Office Visit- Est Pt.- Level 4 [facility] CLS [id number] [facility] 2023-09-11 02:55:00 2023-09-11 05:53:00 Emergency X YONG LIZARRAGA [facility] ERT [id number] [facility] 2023-09-11 02:55:00 2023-09-11 05:53:00 Emergency Yong Lizarraga [facility] [id number] [id number] [facility] 2023-06-26 10:30:00 2023-06-26 10:30:00 Outpatient R MANNY SLATER [facility] [id number] [facility] 2023-06-22 10:30:00 2023-06-22 10:30:00 Outpatient R MANNY SLATER [facility] [id number] [facility] 2023-06-22 10:30:00 2023-06-22 10:30:00 Outpatient R DAY-EMILIANO S, GEOVANNY DAY-EMILIANO S, GEOVANNY [facility] [id number] [facility] 2023-01-30 15:00:00 2023-01-30 15:00:00 Outpatient PAULINA MEDINA [id number] Mon[facility] 2023-01-11 00:00:00 2023-01-11 00:00:00 Outpatient PAULINA MEDINA [id number] Mon[facility] 2022-06-22 09:29:18 2022-06-22 23:59:00 Outpatient R MANNY SLATER [facility] [id number] [facility] 2022-06-22 09:29:18 2022-06-22 23:59:00 Hospital Encounter Manny Slater [facility] [id number] 350.1.13.10 [id number] [id number] [facility] 2022-06-21 10:00:00 2022-06-21 10:52:04 Office Visit SobiaManny del angel [facility] [id number] 350.1.13.10 [id number] [id number] [facility] 2022-06-21 10:00:00 2022-06-21 10:52:04 Outpatient R MANNY SLATER [facility] [id number] [facility] 2022-03-10 08:00:00 2022-03-10 08:00:00 Outpatient JOVITA, TERRI YU [id number] Mon[facility] 2022-03-04 00:00:00 2022-03-04 00:00:00 Outpatient PAULINA MEDINA [id number] Mon[facility] 2022-03-02 08:30:00 2022-03-02 08:30:00 Outpatient LAB90 MONIKA YU [id number] Monika [facility] 2022-03-02 08:00:00 2022-03-02 08:15:00 Office Visit Paulina [facility] [place] [id number] [id number] [id number] [facility] 2022-03-01 08:30:00 2022-03-01 08:30:00 Outpatient JOVITA, TERRI YU [id number] Monika [facility] 2022-02-22 13:30:00 2022-02-22 13:30:00 Outpatient INFUSION, KAHLIL YU [id number] Mon[facility] 2022-02-18 15:30:00 2022-02-18 15:30:00 Outpatient JOVITA, TERRI YU [id number] Monika sergo 2022-02-15 00:00:00 2022-02-15 00:00:00 Outpatient LEYDI AVINA [id number] Mon[facility] 2022-02-15 00:00:00 2022-02-15 00:00:00 Outpatient MAICOL LOPEZ MONIKA YU [id number] Monika zarina 2021-11-22 13:15:00 2021-11-22 14:15:00 Infusion Infusion, Infusion, [facility] [id number] 350.1.13.13 [id number] [id number] Monika [facility] 2021-11-22 00:00:00 2021-11-22 00:00:00 Outpatient JOVITA, TERRI MONIKA YU [id number] Monika zarina 2021-11-19 10:15:00 2021-11-19 10:15:00 Outpatient LAB90 MONIKA YU [id number] Monika [facility] 2021-11-19 09:30:00 2021-11-19 10:00:00 Office Visit Farhad Paulinachris May [place] 1.2.840.114 350.1.13.13 [id number] [id number] Monika [facility] 2021-11-12 15:00:00 2021-11-12 15:00:00 Outpatient INFUSION, MONIKA YU [id number] Monika [facility] 2021-11-10 14:00:00 2021-11-10 14:00:00 Outpatient IVT, MONIKA YU [id number] [facility] 2021-11-09 00:00:00 2021-11-09 00:00:00 Outpatient JUAN MANUEL GREEN [id number] Monika [facility] 2021-11-08 00:00:00 2021-11-08 00:00:00 Outpatient [facility] [id number] 446 [facility] 2021-11-07 00:00:00 2021-11-07 00:00:00 Outpatient MARCO JACOB [id number] Mon[facility] 2021-11-07 00:00:00 2021-11-07 00:00:00 Outpatient JUAN MANUEL GREEN [id number] Monika [facility] 2021-11-06 12:30:00 2021-11-06 12:30:00 Telemedici ne JUAN MANUEL GREEN ANYAWOO Federico [id number] 350.1.13.13 [id number] [id number] Monika [facility] 2021-11-06 12:00:00 2021-11-06 12:00:00 Outpatient JUAN MANUEL GREEN MONIKA YU [id number] Monika [facility] 2021-11-05 00:00:00 2021-11-05 00:00:00 Outpatient VELASQUEZPIPPA RAVIGLENNYolette YU [id number] Monika [facility] 2021-11-05 00:00:00 2021-11-05 00:00:00 Outpatient RON GARRETT MONIKA YU [id number] [facility] 2021-11-05 00:00:00 2021-11-05 00:00:00 Outpatient RON GARRETT MONIKA YU [id number] [facility] 2021-09-10 14:00:00 2021-09-10 14:00:00 Outpatient IVT, MONIKA YU [id number] [facility] 2021-08-16 00:00:00 2021-08-16 00:00:00 Outpatient JOVITA, TERRI MONIKA YU [id number] [facility] 2021-08-13 16:15:00 2021-08-13 16:15:00 Outpatient LAB39 MONIKA YU [id number] [facility] 2021-08-13 15:30:00 2021-08-13 16:00:00 Office Visit Jovita, [facility] [id number] 350.1.13.13 [id number] [id number] Monika [facility] 2021-08-13 14:45:00 2021-08-13 15:45:00 Infusion Ivt, Mc Ivt, [facility] 1.2840.114 350.1.13.13 [id number] [id number] [facility] 2021-08-13 00:00:00 2021-08-13 00:00:00 Outpatient JOVITATERRI AWAD MONIKA YU [id number] [facility] 2021-07-16 14:30:00 2021-07-16 15:30:00 Infusion Ivt, Ivt, [facility] [id number] 350.1.13.13 [id number] [id number] Monika [facility] 2021-07-16 14:20:00 2021-07-16 14:20:00 Outpatient LAB39 MONIKA YU [id number] [facility] 2021-07-07 00:00:00 2021-07-07 00:00:00 Outpatient PIPPA VELASQUEZGLENNYolette YU [id number] Mon[facility] 2021-07-07 00:00:00 2021-07-07 00:00:00 Outpatient VELASQUEZGARRETT MONIKA YU [id number] Monika [facility] 2021-06-11 14:15:00 2021-06-11 14:15:00 Outpatient LAB39 MONIKA YU [id number] [facility] 2021-06-11 13:00:00 2021-06-11 13:00:00 Infusion IVT, [facility] [id number] 350.1.13.13 [id number] [id number] [facility] 2021-06-11 10:15:00 2021-06-11 10:15:00 Outpatient INFUSION, MONIKA YU [id number] [facility] 2021-06-04 00:00:00 2021-06-04 00:00:00 Outpatient TAILOR, DARLENE YU [id number] Mon[facility] 2021-05-14 14:00:00 2021-05-14 14:00:00 Outpatient INFUSION, MONIKA YU [id number] [facility] 2021-05-14 10:00:00 2021-05-14 10:00:00 Infusion INFUSION, [facility] [id number] 350.1.13.13 [id number] [id number] Monika Silva 2021-05-14 09:50:00 2021-05-14 09:50:00 Outpatient MONIKA YU [id number] Monika Silva 2021-05-11 00:00:00 2021-05-11 00:00:00 Outpatient MAICOL LOPEZSEY [id number] [facility] 2021-05-07 00:00:00 2021-05-07 00:00:00 Outpatient LANDEN HARRIS MONIKA [id number] [facility] 2021-04-16 14:40:02 2021-04-16 15:40:02 Infusion Infusion, Infusion, [facility] 1..840.114 350.1.13.13 [id number] [id number] [facility] 2021-04-16 13:45:00 2021-04-16 13:45:00 Outpatient MONIKA MONIKA [id number] [facility] 2021-04-09 00:00:00 2021-04-09 00:00:00 Outpatient MERARY VEALSQUEZ MONIKA YU [id number] Monika [facility] 2021-01-14 00:00:00 2021-01-14 00:00:00 Outpatient TERRI HUSSEIN MONIKA YU [id number] [facility] 2021-01-14 00:00:00 2021-01-14 00:00:00 Outpatient LEYDI AVINA MONIKA YU [id number] [facility] Results Test Description Test Time Test Comments Results Result Co mments Source CT ABDOMEN PELVIS W [id number] 10:44:01ORDERING PHYSICIAN: YONG LIZARRAGA CLINICAL HISTORY: Abdominal pain COMPARISON: None available. TECHNIQUE: Helical CT images of the abdomen and pelvis obtained with IVcontrast. CT scan performed according to ALARA (As low as reasonablyachievable) principles. FINDINGS: Heart size is normal. The liver, gallbladder, pancreas, spleen, andadrenals are unremarkable. Kidneys are unremarkable. There is no hydronephrosis. Diverticula are identified in the colon. There is wallthickening and surrounding inflammation of the distal descending colon,consistent with diverticulitis. There is no perforation. There is noabscess. Trace fluid is in the pelvis. Patient is status post hysterectomy.The appendix isnormal. The bones are unremarkable.[facility] with [id number] 09:53:16* Test Item Value Reference Range Interpretation Comme nts WBC (test code = 6690-2) 10.25 4.30-11.10 RBC (test code = 789-8) 5.48 3.93-5.25 H HGB (test code = 718-7) 14.3 g/dL 11.6-15.0 HCT (test code = 4544-3) 43.9 % 35.7-45.2 MCV (test code = 787-2) 80.1 fL 80.6-95.5 L MCH (test code = 785-6) 26.1 pg 25.9-32.8 MCHC (test code = 786-4) 32.6 g/dL 31.6-35.1 RDW-SD (test code = 49965-0) 44.5 fL 39.0-49.9 RDW-CV (test code = 788-0) 15.4 % 12.0-15.5 PLT (test code = 777-3) 379 166-358 H MPV (test code = 66763-8) 9.8 fL 9.5-12.9 NRBC/100 WBC (test code = 0939414321) 0.0 0.0-10.0 NRBC x10^3 (test code = 1439098939) See_Comment [Automated Attentive.lya ge] The system which generated this result transmitted reference range: 10*3/?L. The reference range was not used to interpret this result as normal/abnormal. GRAN MAT (NEUT) % (test code = 770-8) 66.2 % IMM GRAN % (test code = 4537162403) 0.30 % LYMPH % (test code = 736-9) 23.8 % MONO % (test code = 5905-5) 7.8 % EOS % (test code = 713-8) 1.5 % BASO % (test code = 706-2) 0.4 % GRAN MAT x10^3(ANC) (test code = 5163440116) 6.79 10*3/uL 1.88-7.09 IMM GRAN x10^3 (test code = 6189857149) 0.03 10*3/uL 0.00-0.06 LYMPH x10^3 (test code = 731-0) 2.44 10*3/uL 1.32-3.29 MONO x10^3 (test code = 742-7) 0.80 10*3/uL 0.33-0.92 EOS x10^3 (test code = 711-2) 0.15 10*3/uL 0.03-0.39 BASO x10^3 (test code = 704-7) 0.04 10*3/uL 0.01-0.07 Lab Interpretation (test code = 20172-4) Abnormal [facility] (62491)2023-09-11 09:42:48* Test Item Value Reference Range Interpretation Comme nts NA (test code = 3348583726) 139 mmol/L 135-145 K (test code = 3788185448) 3.4 mmol/L 3.5-5.0 L CL (test code = 1948335079) 104 mmol/L 98-108 CO2 TOTAL (test code = 6763679399) 28 mmol/L 23-31 AGAP (test code = 3868814435) 7 2-16 BUN (test code = 8990663527) 13 mg/dL 7-23 GLUCOSE (test code = 0910376861) 120 mg/dL 70-110 H CREATININE (test code = 2160-0) 0.58 mg/dL 0.50-1.04 TOTAL BILI (test code = 8040575593) 0.5 mg/dL 0.1-1.1 CALCIUM (test code = 6443352973) 9.1 mg/dL 8.6-10.6 T PROTEIN (test code = 4997561947) 8.5 g/dL 6.3-8.2 H ALBUMIN (test code = 6496768078) 4.4 g/dL 3.5-5.0 ALK PHOS (test code = 1846762524) 122 U/L 34-122 ALTv (test code = 1742-6) 28 U/L 5-35 AST(SGOT) (test code = 5655384612) 42 U/L 13-40 H eGFR (test code = 94270-0) 106.4 mL/min/1.73m2 CKD-EPI eGFR (2020). Assuming creatinine has been stable day-to-day for at least three months, the eGFR indicates Category G1 (>= 90 mL/min/1.73 m2) Lab Interpretation (test code = 56780-8) Abnormal [facility]24-[facility] 09:42:48* Test Item Value Reference Range Interpretation Comme nts LIPASE (test code = 6625210163) 133 U/L 0-220 Lab Interpretation (test cod e = 07322-8) Normal [facility] Notes Date/Time Note Provider Source 2023-09-11 05:52:20 Pt given printed and verbal discharge instructions regarding llq abdominal pain, diverticulitis. Encouraged hydration, Prescriptions provided:jocelyne peña Discussed ibuprofen and to take with food to avoid GI distress. Discussed antibiotic therapy and to take until all completed unless adverse reaction occurs - if occurs, discontinue medication and follow up with pcp/seek medical attention Pt verbalized understanding of instructions, pt awake alert oriented, resp reg unlabored, skin w/d, color appropriate for race, moves all ext well,pt encouraged to follow up with pcp. Advised to seek medical attention for new/prolonged/worsening of symptoms, Symptoms improved. No adverse reaction to meds given in ER noted upon discharge PIV d'cd, dressing to site, catheter in tact. Awake, alert oriented, resp reg unlabored, skin w/d, pt leaving amb with steady gait, in no apparent distress, accompanied by . [facility] 2023-09-11 04:16:44 Pt return to room from CT, ambulatory to bathroom & back, steady gait. [facility] 2023-09-11 02:57:27 Seen last week in [facility] dx with diverticulitis. Came in tonight complaining of not feeling good. Complaining of chest pain and epigastric pain. 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 Came in tonight complaining of not feeling good. Complaining of chest pain and epigastric pain. History of Present Illness: Danita Yañez is a 58 year old female with epigastric pain. History of recent diverticulitis. Afebrile. Pain is improving. No distress. BP was elevated during the event. Improved. Past Medical History/Immunizations: Past Medical History: Diagnosis Date Hypertension Leiomyoma of uterus Thyroid disease Tetanus received in last 5 years: No Childhood immunizations: Up-to-date Allergies: Allergies Allergen Reactions Ibuprofen Itching Past Social History: Tobacco Use Never smoked or used smokeless tobacco. Passive Exposure: Never Vaping Use Never used Alcohol Use Yes. Comments: socially Drug Use Never. Sexual Activity Sexually active; Partners: Male; Control/Protection: Surgical. Past Surgical History: Past Surgical History: Procedure Laterality Date BREAST BIOPSY HYSTERECTOMY RADICAL HYSTERECTOMY Review of Systems: Review of Systems Constitutional: Negative for chills, fatigue and fever. HENT: Negative for sore throat. Eyes: Negative for pain. Respiratory: Negative for cough, chest tightness, shortness of breath and stridor. Breasts: Negative for pain. Cardiovascular: Negative for chest pain and palpitations. Gastrointestinal: Positive for abdominal pain. Negative for constipation and diarrhea. Genitourinary: Negative for bladder incontinence and difficulty urinating. Musculoskeletal: Negative for back pain. Skin: Negative for color change. Neurological: Negative for dizziness, seizures, weakness, light-headedness and headaches. Physical Exam: ED Triage Vitals [09/11/23 0258] Weight 93 kg (205 lb) Actual or estimated Estimated by patient/family report Height 1.702 m (5' 7") BP (!) 151/106 Pulse 123 Resp 20 Temp 36.9 ?C (98.4 ?F) Temp source Oral SpO2 97 % Measured on Room air Physical Exam Vitals and nursing note reviewed. Constitutional: General: She is not in acute distress. Appearance: She is well-developed. She is not diaphoretic. HENT: Head: Normocephalic and atraumatic. Right Ear: External ear normal. Left Ear: External ear normal. Nose: Nose normal. Eyes: General: No scleral icterus. Conjunctiva/sclera: Conjunctivae normal. Pupils: Pupils are equal, round, and reactive to light. Cardiovascular: Rate and Rhythm: Normal rate and regular rhythm. Heart sounds: Normal heart sounds. Pulmonary: Effort: Pulmonary effort is normal. Breath sounds: Normal breath sounds. Abdominal: General: Bowel sounds are normal. Palpations: Abdomen is soft. Tenderness: There is abdominal tenderness. There is no guarding or rebound. Musculoskeletal: General: Normal range of motion. Cervical back: Normal range of motion and neck supple. Skin: General: Skin is warm and dry. Neurological: Mental Status: She is alert and oriented to person, place, and time. Cranial Nerves: No cranial nerve deficit. Deep Tendon Reflexes: Reflexes are normal and symmetric. Psychiatric: Behavior: Behavior normal. Thought Content: Thought content normal. Radiology: CT ABDOMEN PELVIS W CONTRAST Final Result ORDERING PHYSICIAN: YONG LIZARRAGA CLINICAL HISTORY: Abdominal pain COMPARISON: None available. TECHNIQUE: Helical CT images of the abdomen and pelvis obtained with IV contrast. CT scan performed according to ALARA (As low as reasonably achievable) principles. FINDINGS: Heart size is normal. The liver, gallbladder, pancreas, spleen, and adrenals are unremarkable. Kidneys are unremarkable. There is no hydronephrosis. Diverticula are identified in the colon. There is wall thickening and surrounding inflammation of the distal descending colon, consistent with diverticulitis. There is no perforation. There is no abscess. Trace fluid is in the pelvis. Patient is status post hysterectomy. The appendix is normal. The bones are unremarkable. IMPRESSION Acute diverticulitis of the distal descending colon There is no perforation. There is no abscess. RL: [id number] Lab Results: Lab Results CBC WITH DIFF - Abnormal Result Value Ref Range WBC 10.25 4.30 - 11.10 10*3/?L RBC 5.48 (*) 3.93 - 5.25 10*6/?L HGB 14.3 11.6 - 15.0 g/dL HCT 43.9 35.7 - 45.2 % MCV 80.1 (*) 80.6 - 95.5 fL MCH 26.1 25.9 - 32.8 pg MCHC 32.6 31.6 - 35.1 g/dL RDW-SD 44.5 39.0 - 49.9 fL RDW-CV 15.4 12.0 - 15.5 % PLT 379 (*) 166 - 358 10*3/?L MPV 9.8 9.5 - 12.9 fL NRBC/100 WBC 0.0 0.0 - 10.0 /100 WBCs NRBC x10 3 <0.01 10*3/?L GRAN MAT (NEUT) % 66.2 % IMM GRAN % 0.30 % LYMPH % 23.8 % MONO % 7.8 % EOS % 1.5 % BASO % 0.4 % GRAN MAT x10 3 (ANC) 6.79 1.88 - 7.09 10*3/uL IMM GRAN x10 3 0.03 0.00 - 0.06 10*3/uL LYMPH x10 3 2.44 1.32 - 3.29 10*3/uL MONO x10 3 0.80 0.33 - 0.92 10*3/uL EOS x10 3 0.15 0.03 - 0.39 10*3/uL BASO x10 3 0.04 0.01 - 0.07 10*3/uL COMP. METABOLIC PANEL (18946) - Abnormal NA 139 135 - 145 mmol/L K 3.4 (*) 3.5 - 5.0 mmol/L CL 104 98 - 108 mmol/L CO2 TOTAL 28 23 - 31 mmol/L AGAP 7 2 - 16 BUN 13 7 - 23 mg/dL GLUCOSE 120 (*) 70 - 110 mg/dL CREATININE 0.58 0.50 - 1.04 mg/dL TOTAL BILI 0.5 0.1 - 1.1 mg/dL CALCIUM 9.1 8.6 - 10.6 mg/dL T PROTEIN 8.5 (*) 6.3 - 8.2 g/dL ALBUMIN 4.4 3.5 - 5.0 g/dL ALK PHOS 122 34 - 122 U/L ALTv 28 5 - 35 U/L AST(SGOT) 42 (*) 13 - 40 U/L eGFR 106.4 mL/min/1.73m2 URINALYSIS - Abnormal APPEARANCE Clear Clear COLOR Yellow Yellow PH 6.0 4.8 - 8.0 SP GRAVITY 1.012 1.003 - 1.030 GLU U QUAL Normal Normal BLOOD Negative Negative KETONES 5 mg/dL (*) Negative PROTEIN Negative Negative UROBILIN Normal Normal BILIRUBIN Negative Negative NITRITE Negative Negative LEUK [place] 25/uL (*) Negative RBC/HPF 8 (*) 0 - 3 HPF WBC/HPF 1 0 - 5 HPF BACTERIA Few (*) Negative MUCOUS Slight (*) Negative LPF SQ EPITH <1 HPF LIPASE - Normal LIPASE 133 0 - 220 U/L EKG: If EKG completed, see Procedure Note. Orders and Treatments: Orders Placed This Encounter Procedures CT ABDOMEN PELVIS W CONTRAST Cbc with Diff Comp. Metabolic Panel (46399) Lipase Urinalysis Orders Placed This Encounter Medications ondansetron (ZOFRAN (PF)) injection 4 mg NaCl 0.9% (NS) bolus infusion 1,000 mL iopamidol (ISOVUE 370-500 mL) injection 100 mL piperacillin-tazobactam (ZOSYN) 3.375 g in NaCl 0.9% (NS) 100 mL MINI-BAG ciprofloxacin HCl 500 mg tablet metroNIDAZOLE 500 mg tablet ondansetron 4 mg disintegrating tablet First Provider Eval: ED Events None ED COURSE ED Course as of 09/11/23 0505 MonSep 11, [address] consistent with acute diverticulitis. Will give IVABX and should go home on abx. No perforation. Afebrile. No leukocytosis. HR initially elevated but normalized. [PS] ED Course User Index [PS] Yong Lizarraga DO Diagnosis/Impression as of 09/11/23 0505 LLQ abdominal pain Diverticulitis Procedures: Procedures MDM: Medical Decision Making Danita Yañez is a 58 year old female with epigastric pain and recent diverticulitis. CT redemonstrating acute diverticulitis. Amount and/or Complexity of Data Reviewed Labs: ordered. Radiology: ordered. Risk Prescription drug management. Flowsheet Documentation: Scoring Tools: No data recorded Disposition/Condition: ED Disposition ED Disposition Disch - Home Condition Stable Comment -- Discharge Medications: Patient's Medications START taking these medications CIPROFLOXACIN HCL 500 MG TABLET Take 1 tablet by mouth in the morning and 1 tablet in the evening. METRONIDAZOLE 500 MG TABLET Take 1 tablet by mouth in the morning and 1 tablet in the evening. ONDANSETRON 4 MG DISINTEGRATING TABLET Take 1 tablet by mouth every 8 (eight) hours as needed for Nausea and Vomiting (N/V). CONTINUE taking these medications which have NOT CHANGED AMLODIPINE 5 MG TABLET BACILLUS COAGULANS-INULIN 1 BILLION-250 CELL-MG CAP Take 1 capsule by mouth. CHOLECALCIFEROL, VITAMIN D3, 125 MCG (5,000 UNIT) CAPSULE Take 1 capsule by mouth. LEVOTHYROXINE 75 MCG TABLET Take 75 mcg by mouth. VITAMIN C WITH KAYLA HIPS 1,000 MG TABLET Take 1,000 mg by mouth. START taking Modified Medications as Prescribed No medications on file STOP taking these medications No medications on file Follow-up: Contact information for follow-up Paulina Medina MD Specialty: FM-FAMILY MEDICINE Relationship: PCP - General [address] [place] [id number] Instructions: For follow up of the presenting symptoms. [facility] Specialty: Emergency Medicine [address] [place] [id number] Instructions: If symptoms worsen as documented in the discharge Electronically signed by: Yong Lizarraga DO 09/11/23 0506 [facility] Center
[2024-11-26 01:09] LABS: Absolute Eosinophils 0.2 K/uL (0-0.5); Absolute Lymphocytes (CBC) 2.2 K/uL (0.7-4.9); Absolute Monocytes 0.7 K/uL (0.1-1.3); Absolute Neutrophil 5.5 K/uL (1.8-8.0); Basophils % 0.6 % (0-1.3); Hematocrit 43.1 % (36.0-45.0); Hemoglobin 14.7 g/dL (12.0-15.0); Lymphocytes % 25.7 % (15.3-44.8); MCH 28.1 pg (27.0-35.0); MCV 82.4 fL (80-100); MPV 8.2 fL (7.6-11.3); Monocytes % 8.3 % (3.3-12.3); Neutrophils % 63.4 % (41.7-73.7); Nucleated Red Blood Cells % 0.1 % (0-0); Platelets 238 thou/uL (152-406); RBC Red Blood Cell Count 5.23 M/uL (3.86-4.86); Red Cell Distribution Width 13.6 % (12.1-15.2)
[2024-11-26 01:28] LABS: ALT/SGPT 21 U/L (13-56); AST/SGOT 13 U/L (15-37); Albumin 3.7 g/dL (3.4-5.0); Alkaline Phosphatase 86 U/L (45-117); BUN Blood Urea Nitrogen 16 mg/dL (7-18); Bicarbonate 30 mEq/L (21-32); Bilirubin Total 0.3 mg/dL (0.2-1.0); Globulin 3.6 g/dL (2.3-3.5); Glomerular Filtration Rate 99 ml/min (=/>90); Glucose Level 102 mg/dL (74-106); Magnesium 2.3 mg/dL (1.6-2.4); NT PRO-BNP 66 pg/mL (<125); Protein, Total 7.3 g/dL (6.4-8.2); Sodium Level 142 mEq/L (136-145); Troponin High Sensitivity 6.2 pg/mL (<58.9)
[2024-11-26 01:32] LABS: D-Dimer 0.474 FEUug/mL (0-0.500); PT Prothrombin Time 10.5 SECONDS (10-13.0); Protime INR 0.92
[2024-11-26 01:32] LABS: Bilirubin Direct < 0.2 mg/dL (0-0.2); Bilirubin Indirect, Calculated 0.1 mg/dL (0.2-0.8)
--- NOTE | 2024-11-26 01:42 | RAD REPORT ---
EXAM DESCRIPTION: Chest Single View RadLex: XR CHEST 1 VIEW CLINICAL HISTORY: 59 years Female, CHEST PAIN COMPARISON: None. FINDINGS: Single portable AP upright view of the chest. Normal size of the cardiac silhouette. No pulmonary vas cular congestion. No focal consolidation, pleural effusion, or pneumothorax. No acute osseous abnormality. IMPRESSION: No acute radiographic abnormality. Electronically signed by: Cady Matamoros MD 11/26/2024 01:39 AM CDT RP Transcribed Date/Time: 11/26/2024 2:37 AM
--- NOTE | 2024-11-26 05:23 | EDPHYS ---
Physician Documentation [facility] Name: Danita Yañez Age: 59 yrs Sex: Female : 1965 Arrival Date: 11/25/2024 Time: 23:59 Bed 13 Private MD: ED Physician Riaz Ruiz HPI: 11/26 00:26 This 59 yrs old Female presents to ER via Unassigned with unknown complaint. sp4 19:46 59-year-old female presents with acute nonexertional chest pressure with radiation to sp4 the back. Patient states she was awakened last evening with acute chest pain. Pain intensified and patient was brought here by EMS. EMS administered 324 mg p.o. aspirin.. Historical: - Allergies: 01:25 Ibuprofen; km10 - Home Meds: 01:25 Clonidine Oral q6h prn [Active]; levothyroxine 75 mcg tab 1 tab once daily [Active]; km10 Metoprolol Tartrate Oral 2 times per day [Active]; - PMHx: 01:25 Diverticulitis; Thyroid problem; Hypertensive disorder; km10 - Immunization history:: Adult Immunizations up to date. - Infectious Disease History:: Denies. - Social history:: Smoking status: Patient denies any tobacco usage or history of. - Family history:: not pertinent. ROS: 19:46 Constitutional: Negative for fever, chills, and weight loss, positive midsternal chest sp4 pressure. 19:46 All other systems are negative, Exam: 19:46 Constitutional: This is a well developed, well nourished patient who is awake, alert, sp4 and in no acute distress. Head/Face: Normocephalic, atraumatic. Eyes: Pupils equal round and reactive to light, extra-ocular motions intact. Lids and lashes normal. Conjunctiva and sclera are not injected. Cornea within normal limits. Periorbital areas with no swelling, redness, or edema. ENT: Nares patent. No nasal discharge, no septal abnormalities noted. Tympanic membranes are normal and external auditory canals are clear. Oropharynx with no redness, swelling, or masses, exudates, or evidence of obstruction, uvula midline. Mucous membranes moist. Neck: Trachea midline, no thyromegaly or masses palpated, and no cervical lymphadenopathy. Supple, full range of motion without nuchal rigidity, or vertebral point tenderness. Chest/axilla: Normal chest wall appearance and motion. Nontender with no deformity. No lesions are appreciated. Cardiovascular: Regular rate and rhythm with a normal S1 and S2. No gallops, murmurs, or rubs. Normal PMI, no JVD. No pulse deficits. Respiratory: Lungs have equal breath sounds bilaterally, clear to auscultation and percussion. No rales, rhonchi or wheezes noted. No increased work of breathing, no retractions or nasal flaring. Abdomen/GI: Soft, with normal bowel sounds. No distension or tympany. No guarding or rebound. No evidence of tenderness throughout. Back: No spinal tenderness. No costovertebral tenderness. Skin: Warm, dry with normal turgor. Normal color with no rashes, no lesions, and no evidence of cellulitis. MS/ Extremity: Pulses equal, no cyanosis. Neurovascular intact. Full, normal range of motion. Neuro: Awake and alert, GCS 15, oriented to person, place, time, and situation. Cranial nerves II-XII grossly intact. Motor strength 5/5 in all extremities. Sensory grossly intact. Psych: Awake, alert, with orientation to person, place and time. Behavior, mood, and affect are within normal limits 19:46 ECG was reviewed by the Attending Physician. EKG reveals normal sinus rhythm rate 63, otherwise unremarkable. Vital Signs: 00:00 BP 123 / 78; Pulse 70; Resp 16; Temp 98.1; Pulse Ox 100% on R/A; km10 02:00 BP 118 / 74; Pulse 71; Resp 16; Pulse Ox 98% on R/A; km10 03:09 BP 110 / 72; Pulse 67; Resp 16; Pulse Ox 99% on R/A; km10 04:01 BP 106 / 75; Pulse 63; Resp 16; Pulse Ox 96% on R/A; km10 05:41 BP 119 / 80; Pulse 64; Resp 16; Pulse Ox 96% on R/A; km10 Joanna Coma Score: 19:46 Eye Response: spontaneous(4). Motor Response: obeys commands(6). Verbal Response: sp4 oriented(5). Total: 15. MDM: 00:27 Medical Screening Exam initiated sp4 02:22 Differential diagnosis: acute pericarditis, anxiety, coronary artery disease chest wall sp4 pain, congestive heart failure esophagitis, gastritis. HEART Score: History: Slightly Suspicious (0), ECG: Normal (0), Age: > 45 and < 65 years (1), Risk Factors: 1 or 2 risk factors (1), Troponin: < or = 1 x Normal Limit (0), Total Score = 2. The patient was not given aspirin in the Emergency Department. Administered by EMS. Data reviewed: vital signs, nurses notes, EMS record, old medical records, lab test result(s), EKG, radiologic studies, plain films. ED course: Troponin x 2 was negative. Patient stable for discharge home. However advised close follow-up with cardiology for outpatient stress and echocardiogram.. 02:56 ED course: EXAM DESCRIPTION: Chest Single View RadLex: XR CHEST 1 VIEW CLINICAL sp4 HISTORY: 59 years Female, CHEST PAIN COMPARISON: None. FINDINGS: Single portable AP upright view of the chest. Normal size of the cardiac silhouette. No pulmonary vascular congestion. No focal consolidation, pleural effusion, or pneumothorax. No acute osseous abnormality. IMPRESSION: No acute radiographic abnormality. 11/26 00:27 Order name: Basic Metabolic Panel; Complete Time: 02:04 sp4 11/26 00:27 Order name: CBC with Diff; Complete Time: 02:04 sp4 11/27 99: Order name: D-Dimer; Complete Time: 02:04 sp4 11/27 99:27 Order name: LFT's; Complete Time: 02:04 sp4 11/27 99:27 Order name: Magnesium; Complete Time: 02:04 sp4 11/27 99:27 Order name: NT PRO-BNP; Complete Time: 02:04 sp4 11/27 99: Order name: PT-INR; Complete Time: 02:04 sp4 11/26 00:27 Order name: Troponin HS; Complete Time: 02:04 sp4 11/26 00:27 Order name: TSH; Complete Time: 02:04 sp4 11/27 99: Order name: T4 Free; Complete Time: 02:04 sp4 11/26 02:54 Order name: Troponin High Sensitivity: at 03:30; Complete Time: 05:19 sp4 11/26 00:27 Order name: XRAY Chest (1 view) sp4 11/26 00:27 Order name: Cardiac monitoring; Complete Time: sp4 11/26 00:27 Order name: EKG - Nurse/Tech; Complete Time: sp4 11/26 00:27 Order name: IV Saline Lock; Complete Time: sp4 11/26 00: Order name: Labs collected and sent; Complete Time: sp4 11/26 00:27 Order name: O2 Per Protocol; Complete Time: sp4 11/26 00: Order name: O2 Sat Monitoring; Complete Time: sp4 EC:22 Rate is 63 beats/min. Rhythm is regular, Normal Sinus Rhythm. QRS [place] is Normal. RI sp4 interval is normal. QRS interval is normal. QT interval is normal. No Q waves. T waves are Normal. No ST changes noted. Clinical impression: No evidence of ischemia. Interpreted by me. Reviewed by me. Administered Medications: No medications were administered Disposition: Chart complete. sp4 Disposition Summary: 11/26/24 05:23 Discharge Ordered Problem: new sp4 Symptoms: have improved sp4 Condition: Stable sp4 Diagnosis - Chest pain, unspecified sp4 - Atypical chest pain sp4 Followup: sp4 - With: Mike iNx MD - When: 7 - 10 days - Reason: Recheck today's complaints Discharge Instructions: - Discharge Summary Sheet sp4 - Nonspecific Chest Pain, Adult, [id number] sp4 Forms: - Patient Portal Instructions sp4 Signatures: Dispatcher [employer] Riaz Wood MD MD sp4 Monet Vergara RN RN km10 Corrections: (The following items were deleted from the chart) 00:28 00:28 BASIC METABOLIC PANEL+C.LAB.BRZ ordered. EDOK EDOK 00: 00:28 CBC+H.LAB.BRZ ordered. EDOK EDOK 00: 00:28 D-DIMER+COAG.LAB.BRZ ordered. EDOK EDOK 00: 00:28 HEPATIC FUNCTION+C.LAB.BRZ ordered. EDOK EDOK 00: 00:28 MAGNESIUM+C.LAB.BRZ ordered. EDOK EDOK 00: 00:28 PROBNP+C.LAB.BRZ ordered. EDOK EDOK 00: 00:28 PROTIME (+INR)+COAG.LAB.BRZ ordered. EDMS EDMS 00: 00:28 Troponin High Sensitivity+C.LAB.BRZ ordered. EDMS EDMS : 00:28 Chest Single View+RAD.RAD.BRZ ordered. EDMS EDMS : 00:28 THYROID STIMULAT HORMONE+C.LAB.BRZ ordered. EDMS EDMS : 00:28 T4 FREE+C.LAB.BRZ ordered. EDMS EDMS 02:54 02:54 Troponin High Sensitivity+C.LAB.BRZ ordered. EDMS EDMS
--- NOTE | 2024-11-26 05:23 | ER ---
Nurse's Notes [facility] Name: Danita Yañez Age: 59 yrs Sex: Female : 1965 Arrival Date: 11/25/2024 Time: 23:59 Bed 13 Private MD: Diagnosis: Chest pain, unspecified;Atypical chest pain Presentation: 11/26 00:00 Chief complaint: Patient states: c/o sudden onset of midline chest pressure and right km10 posterior shoulder pain. Headaches x 2 days. 00:00 Coronavirus screen: Vaccine status: Client denies travel out of the [place] in the last 14 km10 days. At this time, the client does not indicate any symptoms associated with coronavirus-19. Ebola Screen: No symptoms or risks identified at this time. Initial Sepsis Screen: Does the patient meet any 2 criteria? No. Patient's initial sepsis screen is negative. Does the patient have a suspected source of infection? No. Patient's initial sepsis screen is negative. Risk Assessment: Do you want to hurt yourself or someone else? Patient reports no desire to harm self or others. Onset of symptoms was November 25, 2024. Care prior to arrival: Medication(s) given: ASA, 81 mg, x 4. 00:00 Method Of Arrival: EMS km10 00:00 Acuity: CAESAR 3 km10 Triage Assessment: 00:00 General: Appears in no apparent distress. Behavior is cooperative, appropriate for age, km10 anxious. 00:00 Pain: Complains of pain in chest Pain radiates to right scapular area. Neuro: Level of km10 Consciousness is awake, alert, Oriented to person, place, time, situation, Appropriate for age. Cardiovascular: Reports chest pain. Respiratory: Respiratory effort is even, unlabored. Historical: - Allergies: 01:25 Ibuprofen; km10 - Home Meds: 01:25 Clonidine Oral q6h prn [Active]; levothyroxine 75 mcg tab 1 tab once daily [Active]; km10 Metoprolol Tartrate Oral 2 times per day [Active]; - PMHx: 01:25 Diverticulitis; Thyroid problem; Hypertensive disorder; km10 - Immunization history:: Adult Immunizations up to date. - Infectious Disease History:: Denies. - Social history:: Smoking status: Patient denies any tobacco usage or history of. - Family history:: not pertinent. Screenin:28 [facility] ED Fall Risk Assessment (Adult) History of falling in the last 3 months, km10 including since admission No falls in past 3 months (0 pts) Confusion or Disorientation No (0 pts) Intoxicated or Sedated No (0 pts) Impaired Gait No (0 pts) Mobility Assist Device Used No (0 pt) Altered Elimination No (0 pt) Score/Fall Risk Level 0 - 2 = Low Risk. Abuse screen: Denies threats or abuse. Denies injuries from another. Nutritional screening: No deficits noted. Tuberculosis screening: No symptoms or risk factors identified. Assessment: :28 Reassessment: see triage. General:. km10 02:30 Reassessment: Patient appears in no apparent distress at this time. Patient states km10 symptoms have improved. 03:30 Reassessment: Patient appears in no apparent distress at this time. No changes from km10 previously documented assessment. 04:30 Reassessment: Patient appears in no apparent distress at this time. km10 Vital Signs: 00:00 BP 123 / 78; Pulse 70; Resp 16; Temp 98.1; Pulse Ox 100% on R/A; km10 02:00 BP 118 / 74; Pulse 71; Resp 16; Pulse Ox 98% on R/A; km10 03:09 BP 110 / 72; Pulse 67; Resp 16; Pulse Ox 99% on R/A; km10 04:01 BP 106 / 75; Pulse 63; Resp 16; Pulse Ox 96% on R/A; km10 05:41 BP 119 / 80; Pulse 64; Resp 16; Pulse Ox 96% on R/A; km10 Prather Coma Score: 19:46 Eye Response: spontaneous(4). Motor Response: obeys commands(6). Verbal Response: sp4 oriented(5). Total: 15. ED Course: 00:22 Patient arrived in ED. gm2 00:26 Riaz Ruiz MD is Attending Physician. sp4 00:50 XRAY Chest (1 view) In Process Unspecified. EDMS 00:55 Monet Vergara RN is Primary Nurse. km10 01:25 Triage completed. km10 01:27 Arm band placed on right wrist. km10 01:28 Patient has correct armband on for positive identification. Bed in low position. Call km10 light in reach. Side rails up X 1. Provided Education on: plan of care. Client placed on continuous cardiac and pulse oximetry monitoring. NIBP monitoring applied. larry operator on. 03:59 Troponin High Sensitivity: at 03:30 Sent. km10 05:22 Mike Nix MD is Referral Physician. sp4 05:29 IV discontinued, intact, bleeding controlled, No redness/swelling at site. Pressure rk3 dressing applied. 05:51 No provider procedures requiring assistance completed. km10 Administered Medications: No medications were administered Outcome: 05:23 Discharge ordered by MD. sp4 05:51 Discharged to home ambulatory, km10 05:51 Condition: stable 05:51 Discharge instructions given to patient, Instructed on discharge instructions, follow up and referral plans. Demonstrated understanding of instructions, follow-up care, 05:52 Patient left the ED. km10 Signatures: Dispatcher [employer] EDMS Riaz Ruiz MD MD sp4 Kelin Burgess gm2 Danyel Rojas rk3 Monet Vergara RN RN km10 Corrections: (The following items were deleted from the chart) 01:25 00:56 Chief complaint: Patient states: c/o sudden onset of midline chest pressure and km10 right posterior shoulder pain. Headaches x 2 days. km10
[2024-11-26 05:58] VITALS: TEMP 98.1
[2024-11-26 06:03] VITALS: O2SAT 96
[2024-11-26 06:04] VITALS: BP 119/80
== END 2024-11-26 05:52 | disposition home or self-care (01) ==
LOC: ER 23:59
DX: R07.89 Other chest pain (principal); I10 Essential (primary) hypertension; E07.9 Disorder of thyroid, unspecified
CPT/HCPCS: 36415; 71045; 80048; 80076; 83735; 83880; 84439; 84443; 84484; 85025; 85379; 85610; 93005

== ENCOUNTER 2025-03-06 23:23 | Emergency (ER) | payer OTHER ==
--- OUTSIDE RECORDS SUMMARY | 2025-03-06 23:27 | XMS REPORT | Continuity of Care Document ---
Author Name Unknown Address [address] [facility] [address] [place] [address] [facility] Address [address] 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 Role Phone No , Pcp Primary Care Physician Unavailab Светлана Shaikh Attending Clinician Unavailable Fadi Varela MD Attending Clinician [phone] YONG LIZARRAGA Attending Clinician Unavailable Yong Lizarraga DO Attending Clinician [phone] MANNY SLATER Attending Clinician UnavailMANNY Kevin Attending Clinician Unavaila GEOVANNY Castrejon Attending Clinician GEOVANNY Garza Attending Clinician PAULINA Dumont Attending Clinician TERRI Cardozo Attending Clinician Unavailable LAB90 Attending Clinician Unavailable Paulina Medina MD Attending Clinician [phone] INFUSION, ANGLE Attending Clinician Unavailable LEYDI AVINA Attending Clinician Unavailable MAICOL LOPEZ Attending Clinician Unavaila ble Infusion, Mc Attending Clinician Unavailable IVT, MC Attending Clinician Unavailable JUAN MANUEL GREEN Attending Clinician Unavailable MARCO JACOB Attending Clinician Unavailable MERARY VELASQUEZ Attending Clinician UnavailGARRETT Cobb Attending Clinician Unavailable LAB39 Attending Clinician Unavailable Jovita Terri FAIRCHILD Attending Clinician Ivt, Mc Attending Clinician Unavailable DARLENE JEFF Attending Clinician Unavailable LANDEN HARRIS Attending Clinician Unavailable YONG LIZARRAGA Admitting Clinician Unavailable MANNY SLATER Admitting Clinician Unavaila ble Payers Payer Name Policy Type Policy Number Effective Date Expirati on Date Source [facility] [id number] 2024 00:[facility]00 [facility] Plan [id number] [facility] [id number] 2023 00:00:00 [facility] [id number]00[facility]00 [facility] 3 [id number] 2022 00:00:00 Problems Condition Name Condition Details Condition Category Status Onset Date Resolution Date Last Treatment Date Treating Clinician Comments Source Well woman exam with routine gynecologi tori exam Well woman exam with routine gynecologi tori exam Disease Active 2021-07 00:00: 00 [facility] BMI 33.0-33.9, adult BMI 33.0-33.9, adult Disease Active 2021-07 00:00: 00 [facility] 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 11-26 00:00: 00 [facility] Seasonal allergies Seasonal allergies Disease Active 11-26 00:00: 00 [facility] PND (post-nasa l drip) PND (post-nasa l drip) Disease Active 11-26 00:00: 00 Monika Silva Varicose veins with swelling Varicose veins with swelling Problem [facility] [id number] Varicose veins of both legs with edema Problem [facility] Essential hypertensi on Essential (primary) hypertensi on Problem [facility] Chronic kidney disease stage 2 Chronic kidney disease, stage 2 (mild) Problem [facility] Anemia in chronic kidney disease Anemia in chronic kidney disease Problem [facility] Vitamin D deficiency Vitamin D deficiency Problem [facility] Iron deficiency anemia Iron (Fe) deficiency anemia Problem [facility] Hypothyroi dism Hypothyroi dism Problem [facility] Obesity Obesity Problem [facility] Allergies, Adverse Reactions, Alerts Allergy Name Allergy Type Status Severity Reaction(s) Onset Date Inactive Date Treating Clinician Comments Source Ibuprofe n Propensi ty to adverse reaction s Active Itching 12-27 00:00: 00 [facility] IBUPROFE N DRUG INGREDI Active Low ITCHING 12-27 00:00: 00 [facility] Ibuprofe n Allergy to substanc e Active Itching 12-27 00:00: 00 Other Reaction( s): Itching/H brenda/Rash , Unknown [facility] NO KNOWN ALLERGIE S Drug Class Active [facility] ibuprofe n ibuprofe n Active Unknown [facility] Social History Social Habit Start Date Stop Date Quantity Comments Source History of Tobacco Use [facility] ASSERTION Possible [facility] Sexual orientation U [facility] Alcoholic beverage intake 2025-03-03 00:00:00 2025-03-03 00:00:00 Ex-drinker (finding) [facility] History of Social function 2025-02-27 00:00:00 2025-02-27 00:00:00 [facility] Alcohol Comment 2025-02-26 00:00:00 2025-02-26 00:00:00 Maybe an 8 oz drink a month. [facility] Tobacco use and exposure 2025-02-26 00:00:00 2025-02-26 00:00:00 Smokeless tobacco non-user [facility] Alcohol intake 2023-09-11 00:00:00 2023-09-11 00:00:00 Current drinker of alcohol (finding) [facility] Exposure to SARS-CoV-2 (event) 2022-06-12 00:00:00 2022-06-22 09:28:00 Not sure [facility] Sex 2021-05-18 10:26:52 2021-05-18 10:26:52 Female (finding) [facility] Sex assigned at 1965 00:00:00 1965 00:00:00 [facility] Smoking Status Start Date Stop Date Source Never smoked tobacco [facility] Medications Ordered Medication Name Filled Medication Name Start Date Stop Date Current Medication? Ordering Clinician Indication Dosage Frequency Signature (SIG) Comments Components Source olmesartan (BENIcar) 20 MG tablet 02-27 13:57: 22 Yes 20mg QD Take 20 mg by mouth in the morning. [facility] levothyroxi ne (Synthroid, Levoxyl) 75 MCG tablet 02-27 13:57: 21 Yes 75ug Take 75 mcg by mouth every morning. TAKE 1 TABLET BY MOUTH ONCE DAILY IN THE MORNING ON AN EMPTY STOMACH [facility] methylPREDN ISolone (Medrol Dospak) 4 MG tablets 02-27 00:00: 00 03-07 04:59 :00 Yes [id number] Follow schedule on package instructio ns [facility] Semaglutide -Weight Management 0.5 MG/0.5ML Semaglutide -Weight Management 0.5 MG/0.5ML 03-08 00:00: 00 No Semaglutid e-Weight Management 0.5 MG/0.5ML amLODIPine (Norvasc) 5 MG tablet 02-26 00:00: 00 Yes 1 (one) time each day at the same time. [facility] piperacilli n-tazobacta m (ZOSYN) 3.375 g in NaCl 0.9% (NS) 100 mL MINI-BAG 09-10 11:15: 00 09-10 11:50 :00 No 3.375g 3.375 g, IV Piggyback, ONCE, 1 dose, On Mon09/11/23 at 0515, Administer over 30 Minutes, 100 mL
Reas on for Anti-Infec tive: Empiric Therapy for Suspected Infection< br>Empiric Therapy Site: Abdominal< br>Duratio n of therapy: Once (ED) [facility] iopamidol (ISOVUE 370-500 mL) injection 100 mL 09-10 11:15: 00 09-10 11:15 :00 No [id number] 100mL 100 mL, Intravenou s, ONCE, 1 dose, On Mon09/11/23 at 0515, Routine [facility] ondansetron (ZOFRAN (PF)) injection 4 mg 09-10 10:15: 00 09-10 09:10 :00 No 4mg 4 mg, Slow IV Push, ONCE, 1 dose, On Mon09/11/23 at 0415, Routine [facility] NaCl 0.9% (NS) bolus infusion 1,000 mL 09-10 09:15: 00 09-10 11:12 :00 No 1000mL at 999 mL/hr, 1,000 mL, IV Infusion, ONCE, 1 dose, On Mon09/11/23 at 0315, STAT [facility] ciprofloxac in HCl 500 mg tablet 09-10 00:00: 00 Yes [id number] 500mg Take 1 tablet by mouth in the morning and 1 tablet in the evening. [facility] metroNIDAZO LE 500 mg tablet 09-10 00:00: 00 Yes [id number] 500mg Take 1 tablet by mouth in the morning and 1 tablet in the evening. [facility] ondansetron 4 mg disintegrat ing tablet 09-10 00:00: 00 Yes [id number] 4mg Take 1 tablet by mouth every 8 (eight) hours as needed for Nausea and Vomiting (N/V). [facility] amLODIPine Besylate 2.5 MG amLODIPine Besylate 2.5 MG 2022-07 0 00:00: 00 No 1{table t} QD amLODIPine Besylate 2.5 MG Losartan Potassium 25 MG Losartan Potassium 25 MG 03-07 00:00: 00 No 1{table t} QD Losartan Potassium 25 MG Cholecalcif sorin, Vitamin D3, 125 mcg (5,000 unit) capsule 2021-07 10:31: 25 Yes 1{capsu le} Take 1 capsule by mouth. [facility] Bacillus coagulans-I nulin 1 billion-250 cell-mg Cap 2021-07 10:31: 25 Yes 1{capsu le} Take 1 capsule by mouth. [facility] vitamin C with kayla hips 1,000 mg tablet 2021-07 10:31: 25 Yes 1000mg Take 1,000 mg by mouth. [facility] aspirin 81 mg EC tablet 2021-07 10:31: 08 06-21 00:00 :00 No 81mg Take 81 mg by mouth. [facility] amLODIPine 5 mg tablet 2021-07 00:00: 00 Yes [facility] Aspirin 81 MG oral Tablet Delayed [...] Yes 75ug Take 75 mcg by mouth. [facility] Amlodipine Besylate 5 MG oral Tablet 11-19 00:00: 00 Yes [id number] 5mg Take 1 tablet (5 mg total) [...] MCG oral Tablet 10-28 00:00: 00 Yes [id number] 75ug Take 1 tablet (75 mcg total) by mouth daily Monika Silva Amlodipine Besylate 5 MG oral Tablet 10-22 00:00: 00 Yes [id number] 5mg Take 1 tablet (5 mg total) by mouth daily Monika Silva Zinc 50 MG oral Capsule 2020-07 008 15:01: 34 Yes 1{capsu le} Take 1 capsule by mouth 3 times a week Monika Silva Ascorbic Acid (Vitamin C) 1000 MG oral Tablet 2020-07 008 15:01: 34 Yes 1000mg Take 1,000 mg by mouth daily 3 times a week Monika Silva Cholecalcif sorin (Vitamin D3 Maximum Strength) 125 MCG (5000 UT) oral Capsule 2020-07 008 15:01: 34 Yes 1{capsu le} Take 1 capsule by mouth 3 times a week Monika Silva Bacillus Coagulans-I nulin (Probiotic) 1-250 BILLION-MG oral Capsule 2020-07 008 15:01: 34 Yes 1{capsu le} Take 1 capsule by mouth 3 times a week Monika Silva Aspirin (Aspirin 81) 81 MG oral Tablet Delayed Response 2020-07 0 14:55: 28 Yes 81mg Take 81 mg by mouth daily Monika Silva Amlodipine Besylate 5 MG oral Tablet 20 00:00: 00 Yes [id number] 5mg Take 1 tablet (5 mg total) by mouth daily Monika Silva Levothyroxi ne Sodium (Synthroid) 75 MCG oral Tablet 11-26 00:00: 00 Yes [id number] 75ug Take 1 tablet (75 mcg total) by mouth daily Monika Silva Loratadine (Claritin) 10 MG oral tablet 11-26 00:00: 00 11-19 00:00 :00 No [id number] 1{tbl} Take 1 tablet by mouth daily Monika Silva Montelukast (Singulair) 10 MG oral Tablet tablet 11-26 00:00: 00 11-19 00:00 :00 No [id number] 10mg Take 1 tablet (10 mg total) by mouth nightly Monika Silva Zinc 50 MG Zinc 50 MG No 1{ table t} QD Zinc 50 MG Singulair 10 MG Singulair 10 MG No 1{table t} QD Singulair 10 MG Immunizations Ordered Immunization Name Filled Immunization Name Date Status Comments Source SARS-COV-2 COVID-19 PFIZER VACCINE 2020-09-26 00:00:00 Completed [facility] SARS-COV-2 COVID-19 PFIZER VACCINE 2020-09-26 00:00:00 Completed [facility] SARS-COV-2 COVID-19 PFIZER VACCINE 2020-09-05 00:00:00 Completed [facility] SARS-COV-2 COVID-19 PFIZER VACCINE 2020-09-05 00:00:00 Completed [facility] Shingles IM (Shingrix) 2019-10-09 00:00:00 Completed Monika [...] and up 2017-05-03 00:00:00 Completed Monika Seybold SARS-COV-2 COVID-19 PFIZER VACCINE Unknown Completed [facility] Vital Signs Vital Name Observation Time Observation Value Comments S melaniece Body height 2025-02-27 18:56:00 167.6 cm [facility] Body weight 2025-02-27 18:56:00 90.719 kg [facility] BMI 2025-02-27 18:56:00 32.28 kg/m2 [facility] height 2024-03-08 09:30:00 65 [in_i] [facility] weight-kg 2024-03-08 09:30:00 92.9 kg [facility] bmi 2024-03-08 09:30:00 34.08 kg/m2 [facility] heart rate 2024-03-08 09:30:00 75 /min [facility] blood pressure systolic 2024-03-08 09:30:00 136 mm[Hg] [facility] blood pressure diastolic 2024-03-08 09:30:00 96 mm[Hg] [facility] height 2024-02-27 10:45:00 65 [in_i] [facility] weight-kg 2024-02-27 10:45:00 93.89 kg [facility] bmi 2024-02-27 10:45:00 34.44 kg/m2 [facility] temperature 2024-02-27 10:45:00 97.8 [degF] [facility] respiratory rate 2024-02-27 10:45:00 16 /min [facility] heart rate 2024-02-27 10:45:00 77 /min [facility] blood pressure systolic 2024-02-27 10:45:00 150 mm[Hg] [facility] blood pressure diastolic 2024-02-27 10:45:00 102 mm[Hg] [facility] Systolic blood pressure 2023-09-11 11:00:00 107 mm[Hg] [facility] Diastolic blood pressure 2023-09-11 11:00:00 70 mm[Hg] [facility] Heart rate 2023-09-11 11:00:00 92 /min [facility] Respiratory rate 2023-09-11 11:00:00 15 /min [facility] Oxygen saturation in Arterial blood by Pulse oximetry 2023-09-11 11:00:00 96 /min [facility] Body weight 2023-09-11 08:58:00 92.987 kg [facility] BMI 2023-09-11 08:58:00 32.11 kg/m2 [facility] Body temperature 2023-09-11 08:58:00 36.89 Nathalia [facility] Body height 2023-09-11 08:58:00 170.2 cm [facility] Systolic blood pressure 2022-06-21 16:27:00 115 mm[Hg] [facility] Diastolic blood pressure 2022-06-21 16:27:00 75 mm[Hg] [facility] Heart rate 2022-06-21 16:27:00 83 /min [facility] Body temperature 2022-06-21 16:27:00 37.11 Nathalia [facility] Respiratory rate 2022-06-21 16:27:00 16 /min [facility] Body height 2022-06-21 16:27:00 167.6 cm [facility] Body weight 2022-06-21 16:27:00 93.849 kg [facility] BMI 2022-06-21 16:27:00 33.39 kg/m2 [facility] Oxygen saturation in Arterial blood by Pulse oximetry 2022-06-21 16:27:00 96 /min [facility] Systolic blood pressure 2021-11-22 18:47:00 131 mm[Hg] [facility]ybo ld Diastolic blood pressure 2021-11-22 18:47:00 86 mm[Hg] Monika Manzanaresybo ld Heart rate 2021-11-22 18:47:00 79 /min Kelse y Seybold Body temperature 2021-11-22 18:15:00 36.61 Nathalia Monika Manzanaresybold Respiratory rate 2021-11-22 18:15:00 18 /min Monika Manzanaresybold Body height 2021-11-22 18:15:00 167.6 cm Ami [...] Respiratory rate 2021-05-14 15:22:00 17 /min Monika Manzanaresybold Body height 2021-05-14 15:22:00 167.6 cm Ami [...] Body temperature 2021-04-16 19:47:00 36.11 Nathalia Monika Silva Respiratory rate 2021-04-16 19:47:00 18 /min Monika Silva Body height 2021-04-16 19:47:00 167.6 cm Ami Silva Body weight 2021-04-16 19:47:00 93.441 kg Ami Silva BMI 2021-04-16 19:47:00 33.25 kg/m2 Ami Silva Oxygen saturation in Arterial blood by Pulse oximetry 2021-04-16 19:47:00 96 /min Monika Jc ld Procedures Procedure Date / Time Performed Performing Clinicia n Source CT ABDOMEN PELVIS W CONTRAST 2023-09-11 10:23:39 Singer Yong [facility] URINALYSIS 2023-09-11 09:28:00 Yong Lizarraga [facility] LIPASE 2023-09-11 09:05:00 Singer Yong [facility] COMP. METABOLIC PANEL ([id number]) 2023-09-11 09:05:00 Singer Yong [facility] CBC WITH DIFF 2023-09-11 09:05:00 Lizarraga [facility] CONSENT/REFUSAL FOR DIAGNOSIS AND TREATMENT 2023-09-11 08:53:05 Doctor Unassigned, [place] [facility] Encounters Start Date/Time End Date/Time Encounter Type Admission Type Attending [facility] Care Facility Care Department Encounter ID Source 2024-02-27 10:37:02 Outpatient Светлана Billings [facility] [id number] [facility] 2025-02-27 13:45:00 2025-02-27 14:53:36 Office Visit Fadi Varela PHYSICIAN S ORTHOPEDI NATALY [facility]RAUS 1.2.840.114 350.1.13.58 [id number] [facility] 2025-02-27 13:45:00 2025-02-27 14:53:36 Outpatient [facility] [id number] [facility] 2024-06-20 00:00:00 2024-06-20 00:00:00 (TEL) [facility] [id number] Carlito lopez 2024-04-01 00:00:00 2024-04-01 00:00:00 (TEL) CLS CLS [id number] Carlito lopez 2024-03-08 00:00:00 2024-03-08 00:00:00 Office Visit- New Pt.- Level 4 CLS CLS [id number] Carlito lopez 2024-02-27 00:00:00 2024-02-27 00:00:00 Office Visit- Est Pt.- Level 4 CLS CLS [id number] Carlito lopez 2023-09-11 02:55:00 2023-09-11 05:53:00 Emergency X YONG LIZARRAGA [facility] ERT [id number] [facility] 2023-09-11 02:55:00 2023-09-11 05:53:00 Emergency Yong Lizarraga [facility] 1.2.840.114 350.1.13.10 [id number] [id number] [facility] 2023-06-26 10:30:00 2023-06-26 10:30:00 Outpatient R MANNY SLATER [facility] [id number] [facility] 2023-06-22 10:30:00 2023-06-22 10:30:00 Outpatient R MANNY SLATER [facility] [id number] [facility] 2023-06-22 10:30:00 2023-06-22 10:30:00 Outpatient R DAY-EMILIANO S, GEOVANNY DAY-EMILIANO S, GEOVANNY [facility] [id number] [facility] 2023-01-30 15:00:00 2023-01-30 15:00:00 Outpatient PAULINA MEDINA [id number] Monika Silva 2023-01-11 00:00:00 2023-01-11 00:00:00 Outpatient PAULINA MEDINA [id number] Monika Silva 2022-06-22 09:29:18 2022-06-22 23:59:00 Outpatient R MANNY SLATER [facility] [id number] [facility] 2022-06-22 09:29:18 2022-06-22 23:59:00 Hospital Encounter Manny Slater [facility] 1..840.114 350.1.13.10 4.2.7.2.686 [id number] [facility] 2022-06-21 10:00:00 2022-06-21 10:52:04 Office Visit Manny Slater [facility] 1..840.114 350.1.13.10 4.2.7.2.686 [id number] [facility] 2022-06-21 10:00:00 2022-06-21 10:52:04 Outpatient R MANNY SLATER [facility] [id number] [facility] 2022-03-10 08:00:00 2022-03-10 08:00:00 Outpatient TERRI HUSSEIN [id number] [facility] 2022-03-04 00:00:00 2022-03-04 00:00:00 Outpatient PAULINA MEDINA [id number] [facility] 2022-03-02 08:30:00 2022-03-02 08:30:00 Outpatient LAB90 MONIKA YU [id number] Mon[facility] 2022-03-02 08:00:00 2022-03-02 08:15:00 Office Visit Paulina Medin[facility] 1..840.114 350.1.13.13 1.2.7.2.686 [id number] Monika Silva 2022-03-01 08:30:00 2022-03-01 08:30:00 Outpatient JOVITATERRI MCKAY [id number] Monika Ricardo 2022-02-22 13:30:00 2022-02-22 13:30:00 Outpatient INFUSION, MONIKA YU [id number] Monika Silva 2022-02-18 15:30:00 2022-02-18 15:30:00 Outpatient JOVITA, TERRI MONIKA YU [id number] Monika Silva 2022-02-15 00:00:00 2022-02-15 00:00:00 Outpatient LE, LEYDI MONIKA YU [id number] Monika Ricardo 2022-02-15 00:00:00 2022-02-15 00:00:00 Outpatient LOPEZMAICOL MONIKA YU [id number] Monika Manzanareszarina 2021-11-22 13:15:00 2021-11-22 14:15:00 Infusion Infusion, Infusion, [facility] 1.2.840.114 350.1.13.13 [id number] [id number] Monika Manzanareszarina 2021-11-22 00:00:00 2021-11-22 00:00:00 Outpatient JOVITA, TERRI MONIKA YU [id number] Monika Silva 2021-11-19 10:15:00 2021-11-19 10:15:00 Outpatient LAB90 MONIKA YU [id number] Monika Manzanareszarina 2021-11-19 09:30:00 2021-11-19 10:00:00 Office Visit Paulina Medina [place] 1..840.114 350.1.13.13 1.2.7.2.686 [id number] Monika Ricardo 2021-11-12 15:00:00 2021-11-12 15:00:00 Outpatient INFUSION, ANGLE YU [id number] Monika zarina 2021-11-10 14:00:00 2021-11-10 14:00:00 Outpatient IVT, ANGLE YU [id number] Monika zarina 2021-11-09 00:00:00 2021-11-09 00:00:00 Outpatient JUAN MANUEL GREEN [id number] Mon[facility] 2021-11-08 00:00:00 2021-11-08 00:00:00 Outpatient [facility] [id number] [facility] 2021-11-07 00:00:00 2021-11-07 00:00:00 Outpatient MARCO JACOB MON[facility]A YU [id number] [facility] 2021-11-07 00:00:00 2021-11-07 00:00:00 Outpatient PETER JUAN MANUEL YU [id number] Mon[facility] 2021-11-06 12:30:00 2021-11-06 12:30:00 Telemedici ne PETER JUAN MANUEL [facility] D 1.2.840.114 350.1.13.13 [id number] [id number] Mon[facility] 2021-11-06 12:00:00 2021-11-06 12:00:00 Outpatient PETERJUAN MANUEL MONIKA YU [id number] [facility] 2021-11-05 00:00:00 2021-11-05 00:00:00 Outpatient MERARY VELASQUEZ [id number] [facility] 2021-11-05 00:00:00 2021-11-05 00:00:00 Outpatient RON GARRETT YU [id number] [facility] 2021-11-05 00:00:00 2021-11-05 00:00:00 Outpatient GARRETT VELASQUEZ [id number] [facility] 2021-09-10 14:00:00 2021-09-10 14:00:00 Outpatient IVT, ANGLE YU [id number] Mon[facility] 2021-08-16 00:00:00 2021-08-16 00:00:00 Outpatient JOVITATERRI AWAD [id number] [facility] 2021-08-13 16:15:00 2021-08-13 16:15:00 Outpatient LAB39 MONIKA YU [id number] [facility] 2021-08-13 15:30:00 2021-08-13 16:00:00 [facility] 1.2.840.114 350.1.13.13 [id number] [id number] Monika Silva 2021-08-13 14:45:00 2021-08-13 15:45:00 Infusion Ivt, Ivt, [facility] 1.2.840.114 350.1.13.13 [id number] [id number] [facility] 2021-08-13 00:00:00 2021-08-13 00:00:00 Outpatient JOVITATERRI MCKAY MONIKA YU [id number] [facility] 2021-07-16 14:30:00 2021-07-16 15:30:00 Infusion Ivt, Ivt, [facility] 1.2.840.114 350.1.13.13 1.2.7.2.686 [id number] Monika [facility] 2021-07-16 14:20:00 2021-07-16 14:20:00 Outpatient LAB39 MONIKA YU [id number] [facility] 2021-07-07 00:00:00 2021-07-07 00:00:00 Outpatient MERARY VELASQUEZ [id number] [facility] 2021-07-07 00:00:00 2021-07-07 00:00:00 Outpatient GARRETT VELASQUEZ [id number] [facility] 2021-06-11 14:15:00 2021-06-11 14:15:00 Outpatient LAB39 MONIKA YU [id number] Mon[facility] 2021-06-11 13:00:00 2021-06-11 13:00:00 Infusion IVT, [facility] 1.2.840.114 350.1.13.13 [id number] [id number] Monika [facility] 2021-06-11 10:15:00 2021-06-11 10:15:00 Outpatient INFUSION, MONIKA YU [id number] Monika ybzarina 2021-06-04 00:00:00 2021-06-04 00:00:00 Outpatient TAILOR, DARLENE MONIKA YU [id number] Monika marczarina 2021-05-14 14:00:00 2021-05-14 14:00:00 Outpatient INFUSION, MONIKA YU [id number] Monika sergo 2021-05-14 10:00:00 2021-05-14 10:00:00 Infusion INFUSION, [facility] 1.2.840.114 350.1.13.13 [id number] [id number] Monika marczarina 2021-05-14 09:50:00 2021-05-14 09:50:00 Outpatient MONIKA YU [id number] Monika Silva 2021-05-11 00:00:00 2021-05-11 00:00:00 Outpatient [facility]ICOL LOPEZ [id number] [facility] 2021-05-07 00:00:00 2021-05-07 00:00:00 Outpatient TRIKHALANDEN MONIKA YU [id number] [facility] 2021-04-16 14:40:02 2021-04-16 15:40:02 Infusion Infusion, Infusion, [facility] 1.2.840.114 350.1.13.13 [id number] [id number] Monika Silva 2021-04-16 13:45:00 2021-04-16 13:45:00 Outpatient MONIKA YU [id number] Monika Silva 2021-04-09 00:00:00 2021-04-09 00:00:00 Outpatient MERARY VELASQUEZ [id number] Monika Silva 2021-01-14 00:00:00 2021-01-14 00:00:00 Outpatient JOVITATERRI AWAD [id number] Monika Silva 2021-01-14 00:00:00 2021-01-14 00:00:00 Outpatient LEYDI AVINA [id number] Monika Silva Results Test Description Test Time Test Comments Results Result Co mments Source CT ABDOMEN PELVIS W [id number] 10:44:01ORDERING PHYSICIAN: YONG LIZARRAGA CLINICAL HISTORY: Abdominal [...] post hysterectomy.The appendix isnormal. The bones are unremarkable.[facility] with [id number] 09:53:16* Test Item Value Reference Range Interpretation [...] 32.6 g/dL 31.6-35.1 RDW-SD (test code = 76871-6) 44.5 fL 39.0-49.9 RDW-CV (test code = 788-0) 15.4 % 12.0-15.5 PLT (test code = 777-3) 379 166-358 H MPV (test code = 18765-6) 9.8 fL 9.5-12.9 NRBC/100 WBC (test code = 7178719911) 0.0 0.0-10.0 NRBC x10^3 (test code = 3228563000) See_Comment [Automated messa ge] The system which generated this result transmitted reference range: 10*3/?L. The reference range was not used to interpret this result as normal/abnormal. GRAN MAT (NEUT) % (test code = 770-8) 66.2 % IMM GRAN % (test code = 6647551384) 0.30 % LYMPH % (test code = 736-9) 23.8 % MONO % (test code = 5905-5) 7.8 % EOS % (test code = 713-8) 1.5 % BASO % (test code = 706-2) 0.4 % GRAN MAT x10^3(ANC) (test code = 6438943974) 6.79 10*3/uL 1.88-7.09 IMM GRAN x10^3 (test code = 6597275167) 0.03 10*3/uL 0.00-0.06 LYMPH x10^3 (test code = 731-0) 2.44 10*3/uL 1.32-3.29 MONO x10^3 (test code = 742-7) 0.80 10*3/uL 0.33-0.92 EOS x10^3 (test code = 711-2) 0.15 10*3/uL 0.03-0.39 BASO x10^3 (test code = 704-7) 0.04 10*3/uL 0.01-0.07 Lab Interpretation (test code = 44815-4) [facility] (53291[facility]2023-09-11 09:42:48* Test Item Value Reference Range Interpretation Comme nts NA (test code = 5182227151) 139 mmol/L 135-145 K (test code = 9356099462) 3.4 mmol/L 3.5-5.0 L CL (test code = 5935423353) 104 mmol/L 98-108 CO2 TOTAL (test code = 8289270220) 28 mmol/L 23-31 AGAP (test code = 9960304815) 7 2-16 BUN (test code = 8807134080) 13 mg/dL 7-23 GLUCOSE (test code = 6743595143) 120 mg/dL 70-110 H CREATININE (test code = 2160-0) 0.58 mg/dL 0.50-1.04 TOTAL BILI (test code = 5011998407) 0.5 mg/dL 0.1-1.1 CALCIUM (test code = 0283118317) 9.1 mg/dL 8.6-10.6 T PROTEIN (test code = 4458921121) 8.5 g/dL 6.3-8.2 H ALBUMIN (test code = 6568691655) 4.4 g/dL 3.5-5.0 ALK PHOS (test code = 9778143872) 122 U/L 34-122 ALTv (test code = 1742-6) 28 U/L 5-35 AST(SGOT) (test code = 2625112813) 42 U/L 13-40 H eGFR (test code = 41057-3) 106.4 mL/min/1.73m2 CKD-EPI eGFR (2020). Assuming creatinine has been stable day-to-day for at least three months, the eGFR indicates Category G1 (>= 90 mL/min/1.73 m2) Lab Interpretation (test code = 89624-6) [facility] Test Item Value Reference Range Interpretation Comme nts LIPASE (test code = 6665393237) 133 U/L 0-220 Lab Interpretation (test cod e = 55765-3) Normal [facility] Notes Date/Time Note Provider Source 2023-09-11 05:52:20 [...] in no apparent distress, accompanied by . [facility] 2023-09-11 04:16:44 Pt return to room from CT, ambulatory to bathroom & back, steady gait. [facility] 2023-09-11 02:57:27 Seen last week in [place] ER dx with diverticulitis. Came in tonight complaining of not feeling good. Complaining of chest pain and epigastric pain. 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 Came in tonight [...] 0.01 - 0.07 10*3/uL COMP. METABOLIC PANEL (37482) - Abnormal NA 139 135 - 145 [...] CONTRAST Cbc with Diff Comp. Metabolic Panel (35351) Lipase Urinalysis Orders Placed This Encounter Medications [...] None ED COURSE ED Course as of 09/11/23504Sep 11, [address] consistent with acute diverticulitis. Will give IVABX and should go home on abx. No perforation. Afebrile. No leukocytosis. HR initially elevated but normalized. [PS] ED Course User Index [PS] Yong Lizarraga DO Diagnosis/Impression as of 09/11/23 050 LLQ abdominal pain Diverticulitis Procedures: Procedures MDM: [...] Specialty: FM-FAMILY MEDICINE Relationship: PCP - General [address] [place] [id number] Instructions: For follow up of the presenting symptoms. [facility] Department Specialty: Emergency Medicine [address] [place] [address] Instructions: If symptoms worsen as documented in the discharge Electronically signed by: Yong Lizarraga DO 09/11/[address] [facility]
--- NOTE | 2025-03-07 00:55 | ER ---
Nurse's Notes [facility] Name: Danita Yañez Age: 59 yrs Sex: Female : 1965 Arrival Date: 03/06/2025 Time: 23:23 Bed 7 Private MD: Diagnosis: Acute left arm radiculopathy, degenerative changes of the cervical spine with left arm radiculopathy Presentation: 03/06 23:38 Chief complaint: Patient states: left shoulder pain that started 2 weeks ago. States cp4 she went to orthopedic doctor and was told she has a pinched nerve. Coronavirus screen: Client denies travel out of the [place] in the last 14 days. At this time, the client does not indicate any symptoms associated with coronavirus-19. Ebola Screen: Patient negative for fever greater than or equal to 101.5 degrees Fahrenheit, and additional compatible Ebola Virus Disease symptoms Patient denies exposure to infectious person. Patient denies travel to an Ebola-affected area in the 21 days before illness onset. No symptoms or risks identified at this time. Initial Sepsis Screen: Does the patient meet any 2 criteria? No. Patient's initial sepsis screen is negative. Does the patient have a suspected source of infection? No. Patient's initial sepsis screen is negative. Risk Assessment: Do you want to hurt yourself or someone else? Patient reports no desire to harm self or others. Onset of symptoms was February 20, 2025. 23:38 Method Of Arrival: Ambulatory cp4 23:38 Acuity: CAESAR 4 cp4 Triage Assessment: 23:41 General: Appears in no apparent distress. uncomfortable, Behavior is calm, cooperative, cp4 appropriate for age. Pain: Complains of pain in left shoulder. Historical: - Allergies: 23:41 Ibuprofen; cp4 - Home Meds: 23:41 levothyroxine 75 mcg tab 1 tab once daily [Active]; Clonidine Oral q6h prn [Active]; cp4 Metoprolol Tartrate Oral 2 times per day [Active]; - PMHx: 23:41 Diverticulitis; Hypertensive disorder; Thyroid problem; cp4 - Immunization history:: Adult Immunizations up to date. - Infectious Disease History:: Denies. - Social history:: Smoking status: Patient denies any tobacco usage or history of. Screenin/29 02:01 [facility] ED Fall Risk Assessment (Adult) History of falling in the last 3 months, bm8 including since admission No falls in past 3 months (0 pts) Confusion or Disorientation No (0 pts) Intoxicated or Sedated No (0 pts) Impaired Gait No (0 pts) Mobility Assist Device Used No (0 pt) Altered Elimination No (0 pt) Score/Fall Risk Level 0 - 2 = Low Risk Oriented to surroundings, Maintained a safe environment, Educated pt \T\ family on fall prevention, incl call for assistance when getting out of bed, Assessed \T\ reinforced patient's understanding of fall precautions, Hourly rounding (assess needs \T\ fall precautionary measures) done, Used ambulatory aids as needed (educated on \T\ assisted with), Used gait belt as appropriate. Abuse screen: Denies threats or abuse. Nutritional screening: No deficits noted. Tuberculosis screening: No symptoms or risk factors identified. Assessment: 00:45 Reassessment: Called to room. No answer. cp4 00:53 Reassessment: Called to room. No answer. cp4 02:01 Reassessment: Patient appears in no apparent distress at this time. Patient and/or bm8 family updated on plan of care and expected duration. Pain level reassessed. Patient is alert, oriented x 3, equal unlabored respirations, skin warm/dry/pink. General: Appears in no apparent distress. comfortable, Behavior is calm, cooperative, appropriate for age. Pain: Complains of pain in left arm Pain currently is 6 out of 10 on a pain scale. Quality of pain is described as crampy, Pain began weeks. Neuro: No deficits noted. Level of Consciousness is awake, alert, obeys commands, Oriented to person, place, time, situation, Appropriate for age. Cardiovascular: Denies chest pain. Respiratory: Airway is patent Trachea midline Respiratory effort is even, unlabored, Respiratory pattern is regular, symmetrical, Breath sounds are clear bilaterally. GI: No signs and/or symptoms were reported involving the gastrointestinal system. : No signs and/or symptoms were reported regarding the genitourinary system. EENT: No signs and/or symptoms were reported regarding the EENT system. Derm: No signs and/or symptoms reported regarding the dermatologic system. Musculoskeletal: No signs and/or symptoms reported regarding the musculoskeletal system. 03:13 Reassessment: Patient appears in no apparent distress at this time. Patient and/or zm family updated on plan of care and expected duration. Pain level reassessed. Patient is alert, oriented x 3, equal unlabored respirations, skin warm/dry/pink. Patient states feeling better. Patient states symptoms have improved. Pain: Pain currently is 2 out of 10 on a pain scale. 04:13 Reassessment: Patient appears in no apparent distress at this time. Patient and/or bm8 family updated on plan of care and expected duration. Pain level reassessed. Patient is alert, oriented x 3, equal unlabored respirations, skin warm/dry/pink. Patient states feeling better. Patient states symptoms have improved. Pain: Pain currently is 3 out of 10 on a pain scale. Vital Signs: 03/06 23:38 BP 125 / 83; Pulse 71; Resp 18; Temp 98.1; Pulse Ox 100% ; Weight 90.72 kg; Height 5 cp4 ft. 6 in. ; Pain 5/10; 03/07 03:13 BP 114 / 74; Pulse 61; Resp 14; Temp 98.3; Pulse Ox 97% on R/A; Pain 2/10; zm 04:13 BP 118 / 71; Pulse 65; Resp 17; Temp 98.2; Pulse Ox 99% ; Pain 3/10; bm8 03/06 23:38 Body Mass Index 32.28 (90.72 kg, 167.64 cm) cp4 03/06 23:38 Pain Scale: Adult cp4 03/07 03:13 Pain Scale: Adult zm 04:13 Pain Scale: Adult bm8 [place] Coma Score: 02:01 Eye Response: spontaneous(4). Motor Response: obeys commands(6). Verbal Response: bm8 oriented(5). Total: 15. 03:13 Eye Response: spontaneous(4). Motor Response: obeys commands(6). Verbal Response: zm oriented(5). Total: 15. 04:13 Eye Response: spontaneous(4). Motor Response: obeys commands(6). Verbal Response: bm8 oriented(5). Total: 15. ED Course: 03/06 23:27 Patient arrived in ED. gm2 23:41 Triage completed. cp4 23:41 Arm band placed on right wrist. Patient placed in waiting room. EKG completed in 4 triage. Results shown to MD. 23:57 Spencer Granados PA-C [facility]. cp 23:57 Riaz Ruiz MD is Attending Physician. cp 03/07 00:55 XRAY Chest (1 view) In Process Unspecified. EDMS 00:55 XRAY Shoulder LEFT 2 view In Process Unspecified. EDMS 01:58 Isabel Blue, RN is Primary Nurse. zm 01:59 Basic Metabolic Panel Sent. zm 01:59 CBC with Diff Sent. zm 01:59 LFT's Sent. zm 01:59 Magnesium Sent. zm 01:59 PT-INR Sent. zm 01:59 Troponin HS Sent. zm 02:01 Patient has correct armband on for positive identification. Placed in gown. Bed in low bm8 position. Call light in reach. Side rails up X 1. Client placed on continuous cardiac and pulse oximetry monitoring. NIBP monitoring applied. court recording monitor on. Pulse ox on. NIBP on. Door closed. Noise minimized. Warm blanket given. Pillow given. Verbal reassurance given. Head of bed elevated. 02:01 No provider procedures requiring assistance completed. Initial lab(s) drawn, by loyda tellez sent to lab. EKG done, by ED staff, reviewed by Spencer Granados PA-C. Inserted saline lock: 18 gauge in right antecubital area, using aseptic technique. Blood collected. Flushed with 10 mL NS. Patient maintains SpO2 saturation greater than 95% on room air. 02:07 CT Head C Spine In Process Unspecified. EDMS 04:03 Rupert Carver MD is Referral Physician. sp4 04:13 Provided Education on: Post er care. bm8 04:13 IV discontinued, intact, bleeding controlled, No redness/swelling at site. Pressure bm8 dressing applied. Administered Medications: 01:58 Drug: Dexamethasone IVP 10 mg IVP once Route: IVP; Site: right antecubital; zm 04:14 Follow up: Response: No adverse reaction bm8 01:59 Drug: Methocarbamol IVPB 1 grams IVPB once over 1 hrs; (mix in NS 100 mL) Route: IVPB; zm Infused Over: 1 hrs; Site: right antecubital; 04:14 Follow up: Response: No adverse reaction; IV Status: Completed infusion bm8 04:11 Drug: Ketorolac PO 10 mg PO once Route: PO; bm8 04:14 Follow up: Response: No adverse reaction bm8 Medication: 02:01 VIS not applicable for this client. bm8 Outcome: 00:55 Patient left the ED. cp4 04:05 Discharge ordered by . sp4 04:13 Discharged to home ambulatory, bm8 04:13 Condition: stable 04:13 Instructed on discharge instructions, follow up and referral plans. Demonstrated understanding of instructions, follow-up care, medications, Prescriptions given X 3, 04:16 Patient left the ED. bm8 Signatures: Dispatcher [employer] EDMS Spencer Granados, PA-C PA-Isabel Heredia cp, RN RN Riaz Quinn MD MD sp4 Yolanda Zamarripa cp4 Kelin Burgess 2 Leoncio Newman, RN RN bm8
[2025-03-07] MEDS ORDERED: NA CHLORIDE 0.9% 100 ML ONE (01:44)
[2025-03-07] MEDS ORDERED: METHOCARBAMOL 1,000 MG/10 ML VIAL ONE (01:44)
[2025-03-07 02:17] LABS: PT Prothrombin Time 10.5 SECONDS (10-13.0); Protime INR 0.93
[2025-03-07 02:19] LABS: Absolute Lymphocytes (CBC) 2.2 K/uL (0.7-4.9); Hematocrit 43.6 % (36.0-45.0); Hemoglobin 14.4 g/dL (12.0-15.0); MCH 27.2 pg (27.0-35.0); MCHC 33.0 g/dL (32.0-36.0); MCV 82.3 fL (80-100); MPV 7.7 fL (7.6-11.3); Nucleated RBC Absolute Count 0.0 (0-0); Nucleated Red Blood Cells % 0.1 % (0-0); RBC Red Blood Cell Count 5.30 M/uL (3.86-4.86); White Blood Count 9.10 thou/uL (4.3-10.9)
[2025-03-07 02:33] LABS: ALT/SGPT 31 U/L (13-56); AST/SGOT 15 U/L (15-37); Albumin 3.7 g/dL (3.4-5.0); Albumin/Globulin Ratio 1.0 (1.1-1.8); Alkaline Phosphatase 97 U/L (45-117); Anion Gap 5.9 mEq/L (5.0-15.0); BUN Blood Urea Nitrogen 21 mg/dL (7-18); Globulin 3.6 g/dL (2.3-3.5); Glucose Level 117 mg/dL (74-106); Magnesium 2.5 mg/dL (1.6-2.4); Potassium 3.9 mEq/L (3.5-5.1); Troponin High Sensitivity 3.4 pg/mL (<58.9)
[2025-03-07 02:40] LABS: Bilirubin Indirect, Calculated 0.0 mg/dL (0.2-0.8)
--- NOTE | 2025-03-07 04:05 | EDPHYS ---
Physician Documentation [facility] Name: Danita Yañez Age: 59 yrs Sex: Female : 1965 Arrival Date: 03/06/2025 Time: 23:23 Bed 7 Private MD: ED Physician Riaz Ruiz HPI: 03/07 00:05 This 59 yrs old Female presents to ER via Ambulatory with complaints of Arm cp Pain, Shoulder Pain, ARM TINGLING. 00:05 The patient or guardian complains of pain, that is acute. The complaints affect the cp left lateral neck and left shoulder. Context: resulted from unknown cause. Onset: The symptoms/episode began/occurred 2 week(s) ago. Associated signs and symptoms: Pertinent positives: radiating pain to left arm and left chest. 00:05 Treatment prior to arrival includes: no previous treatment. cp 00:05 Patient reports being prescribed steroid pack for pain with no relief. cp Historical: - Allergies: 03/06 23:41 Ibuprofen; cp4 - Home Meds: 23:41 levothyroxine 75 mcg tab 1 tab once daily [Active]; Clonidine Oral q6h prn [Active]; cp4 Metoprolol Tartrate Oral 2 times per day [Active]; - PMHx: 23:41 Diverticulitis; Hypertensive disorder; Thyroid problem; cp4 - Immunization history:: Adult Immunizations up to date. - Infectious Disease History:: Denies. - Social history:: Smoking status: Patient denies any tobacco usage or history of. ROS: 03/07 00:10 MS/extremity: Positive for pain, tenderness, of the left lateral neck and left cp shoulder, 00:10 Constitutional: Negative for body aches, chills, fever, poor PO intake, cp 00:10 Cardiovascular: Positive for chest pain, 00:10 Respiratory: Negative for cough, shortness of breath, wheezing, 00:10 Constitutional: Negative for fever, chills, and weight loss, positive for left arm pain cp and left arm numbness and tingling. 00:10 All other systems are negative, cp Exam: 00:15 Constitutional: The patient appears in no acute distress, alert, awake, cp non-diaphoretic, non-toxic, well developed, well nourished, 00:15 Head/Face: Normocephalic, atraumatic. cp 00:15 Eyes: Periorbital structures: appear normal, Conjunctiva: normal, no exudate, no injection, Sclera: no appreciated abnormality, Lids and lashes: appear normal, bilaterally, 00:15 Chest/axilla: Inspection: normal, 00:15 Cardiovascular: Rate: normal, Rhythm: regular, 00:15 Respiratory: the patient does not display signs of respiratory distress, Respirations: normal, no use of accessory muscles, no retractions, labored breathing, is not present, Breath sounds: are clear throughout, no decreased breath sounds, no stridor, no wheezing, 00:15 Abdomen/GI: Inspection: abdomen appears normal, Palpation: abdomen is soft and cp non-tender, in all quadrants, 00:15 Back: pain, that is moderate, of the right trapezius and right scapular area, ROM is normal, vertebral tenderness, is not appreciated, 00:15 Skin: cellulitis, is not appreciated, no rash present. 00:15 Neuro: Orientation: is normal, Mentation: is normal, Motor: moves all fours, no focal deficits, Sensation: no obvious gross deficits, Gait: is steady, at a normal pace, without difficulty, 01:49 ECG was reviewed by the Attending Physician. cp Vital Signs: 03/06 23:38 BP 125 / 83; Pulse 71; Resp 18; Temp 98.1; Pulse Ox 100% ; Weight 90.72 kg; Height 5 cp4 ft. 6 in. ; Pain 5/10; 03/07 03:13 BP 114 / 74; Pulse 61; Resp 14; Temp 98.3; Pulse Ox 97% on R/A; Pain 2/10; zm 04:13 BP 118 / 71; Pulse 65; Resp 17; Temp 98.2; Pulse Ox 99% ; Pain 3/10; bm8 03/06 23:38 Body Mass Index 32.28 (90.72 kg, 167.64 cm) cp4 03/06 23:38 Pain Scale: Adult cp4 03/07 03:13 Pain Scale: Adult zm 04:13 Pain Scale: Adult bm8 Joanna Coma Score: 02:01 Eye Response: spontaneous(4). Motor Response: obeys commands(6). Verbal Response: bm8 oriented(5). Total: 15. 03:13 Eye Response: spontaneous(4). Motor Response: obeys commands(6). Verbal Response: zm oriented(5). Total: 15. 04:13 Eye Response: spontaneous(4). Motor Response: obeys commands(6). Verbal Response: bm8 oriented(5). Total: 15. MDM: 03/06 23:57 Medical Screening Exam initiated cp 03/07 03:42 ED course: COMPARISON: No relevant prior studies available. FINDINGS: Brain: sp4 Unremarkable. No hemorrhage. No significant white matter disease. No edema. Ventricles: Unremarkable. No ventriculomegaly. Skull: No acute fracture. Sinuses: Unremarkable as visualized. No acute sinusitis. Mastoid air cells: Unremarkable as visualized. No mastoid effusion. Vertebrae: No acute fracture. Normal alignment. Discs/spinal canal/neural foramina: Multilevel degenerative changes most pronounced, moderate to severe at C5-C6. Moderate bilateral foraminal narrowing at this level, right greater than left. Multilevel facet arthropathy most pronounced, moderate to severe on the right at C4-C5 and C6-C7. No critical canal stenosis. Soft tissues: Unremarkable. IMPRESSION: 1. No acute intracranial or extra-axial abnormality. 2. Multilevel degenerative changes most pronounced at C5-C6. No critical canal stenosis. Electronically signed by: Bill Meraz MD 03/07/2025 02:57 AM. ED course: EXAM: XR Chest, 1 View CLINICAL HISTORY: CHEST PAIN TECHNIQUE: Frontal view of the chest. COMPARISON: No relevant prior studies available. FINDINGS: Lungs: Unremarkable. No consolidation. Pleural space: Unremarkable. No pneumothorax. Heart: Unremarkable. No cardiomegaly. Mediastinum: Unremarkable. Normal mediastinal contour. Bones/joints: Unremarkable. No acute fracture. IMPRESSION: No acute disease.. ED course: EXAM DESCRIPTION: Shoulder Left 2+ Views CLINICAL HISTORY: 59 years Female PAIN COMPARISON: None TECHNIQUE: 2 images of the left shoulder were obtained. FINDINGS: Satisfactory articulation humeral head with glenoid fossa. Intact acromioclavicular joint. Acromioclavicular joint measures 4 mm in transverse dimension. No fractures seen. Normal bony mineralization. No erosive or lytic lesions. No significant degenerative changes. IMPRESSION: No acute fracture or dislocation seen. No significant degenerative change. . 20:39 Differential diagnosis: contusion, abrasion, tendonitis, Neuropathic pain. Data sp4 reviewed: vital signs, nurses notes, lab test result(s), radiologic studies, CT scan. Consideration of Admission/Observation Escalation of care including admission/observation considered. ED course: Patient was prescribed symptomatic medications and advised follow-up with neurosurgery Dr. Bradshaw with Dr. Elizondo. Also advised outpatient MRI.. 03/07 00:10 Order name: Basic Metabolic Panel; Complete Time: 02:41 cp 03/07 02:41 Interpretation: Normal except: GLUC 117; BUN 21. cp 03/07 00:10 Order name: CBC with Diff; Complete Time: 02:30 cp 03/07 02:30 Interpretation: Normal except: RBC 5.30. cp 03/07 00:10 Order name: LFT's; Complete Time: 02:41 cp 03/07 00:10 Order name: Magnesium; Complete Time: 02:41 cp 03/07 00:10 Order name: PT-INR; Complete Time: 02:30 cp 03/07 00:10 Order name: Troponin HS; Complete Time: 02:41 cp 03/07 02:41 Interpretation: Reviewed. cp 03/07 00:10 Order name: XRAY Chest (1 view) cp 03/07 00:10 Order name: XRAY Shoulder LEFT 2 view cp 03/07 01:36 Order name: CT Head C Spine cp 03/07 00:10 Order name: EKG; Complete Time: 00:10 cp 03/07 00:10 Order name: Cardiac monitoring; Complete Time: 02:05 cp 03/07 00:10 Order name: EKG - Nurse/Tech; Complete Time: 01:59 cp 03/07 00:10 Order name: IV Saline Lock; Complete Time: :59 cp 03/07 00:10 Order name: Labs collected and sent; Complete Time: :59 cp 03/07 00:10 Order name: O2 Per Protocol; Complete Time: :59 cp 03/07 00:10 Order name: O2 Sat Monitoring; Complete Time: :59 cp EC:49 Rate is 64 beats/min. Rhythm is regular. MO interval is normal. QRS interval is cp prolonged at 124 msec. QT interval is normal. T waves are Inverted in lead aVR. Interpreted by me. Reviewed by me. Administered Medications: 01:58 Drug: Dexamethasone IVP 10 mg IVP once Route: IVP; Site: right antecubital; zm 04:14 Follow up: Response: No adverse reaction bm8 01:59 Drug: Methocarbamol IVPB 1 grams IVPB once over 1 hrs; (mix in NS 100 mL) Route: IVPB; zm Infused Over: 1 hrs; Site: right antecubital; 04:14 Follow up: Response: No adverse reaction; IV Status: Completed infusion bm8 04:11 Drug: Ketorolac PO 10 mg PO once Route: PO; bm8 04:14 Follow up: Response: No adverse reaction bm8 Disposition: 03:41 Co-signature as Attending Physician, Riaz Ruiz MD I agree with the assessment sp4 and plan of care. I reviewed the patient's care provided by Advanced Practice Provider \T\ agree w/ the diagnosis \T\ care plan. I personally saw the pt \T\ performed a substantive portion of the visit, incldng all aspects of the (History/Exam/Medical Decision Making). Disposition Summary: 03/07/25 04:05 Discharge Ordered Problem: new sp4 Symptoms: have improved sp4 Condition: Stable sp4 Diagnosis - Acute left arm radiculopathy, degenerative changes of the cervical spine with sp4 left arm radiculopathy Followup: sp4 - With: Rupert Carver MD - When: 7 - 10 days - Reason: Recheck today's complaints Discharge Instructions: - Discharge Summary Sheet sp4 - Cervical Radiculopathy, [id number] sp4 Forms: - Patient Portal Instructions sp4 Prescriptions: - acetaminophen-codeine 300-60 mg Oral tablet - take 1 tablet ORAL route every 4 hours as needed for pain; 25 tablet; Refills: sp4 0, Product Selection Permitted - meloxicam 15 mg Oral tablet - take 1 tablet ORAL route daily PRN pain; 30 tablet; Refills: 0, Product sp4 Selection Permitted - methocarbamol 750 mg Oral tablet - take 2 tablets ORAL route every 8 hours for 10 days PRN pain; 60 tablet; sp4 Refills: 0, Product Selection Permitted Signatures: Dispatcher [employer] EDMS Spencer Granados PA-C PA-C cp Martinez, Zaina, RN Riaz Garrido MD MD sp4 Yolanda Zamarripa Brad RN RN bm8 Corrections: (The following items were deleted from the chart) 01:20 00:55 after being seen by provider cp4 vc1 01:20 00:55 (see nurse's notes) cp4 vc1 03/08 02:03/07 20:40 Constitutional: Negative for fever, chills, and weight loss, positive for cp left arm pain and left arm numbness and tingling. sp4 03/08 02:03/07 00:10 All other systems are negative, cp cp
[2025-03-07] MEDS ORDERED: KETOROLAC 10 MG TAB ONE (04:06)
--- NOTE | 2025-03-07 04:19 | RAD REPORT ---
EXAM: CT Head and Cervical Spine Without Intravenous Contrast CLINICAL HISTORY: left arm/shoulder pain TECHNIQUE: Axial computed tomography images of the head/brain and cervical spine without intravenous contrast. Sagittal and coronal reformatted images were created and reviewed. This CT exam was performed using one or more of the following dose reduction techniques: automated exposure control, adjustmen t of the mA and/or kV according to patient size, and/or use of iterative reconstruction technique. COMPARISON: No relevant prior studies available. FINDINGS: Brain: Unremarkable. No hemorrhage. No significant white matter disease. No edema. Ventricles: Unremarkable. No ventriculomegaly. Skull: No acute fracture. Sinuses: Unremarkable as visualized. No acute sinusitis. Mastoid air cells: Unremarkable as visualized. No mastoid effusion. Vertebrae: No acute fracture. Normal alignment. Discs/spinal canal/neural foramina: Multilevel degenerative changes most pronounced, moderate to se radha at C5-C6. Moderate bilateral foraminal narrowing at this level, right greater than left. Multilevel facet arthropathy most pronounced, moderate to severe on the right at C4-C5 and C6-C7. No critical canal stenosis. Soft tissues: Unremarkable. IMPRESSION: 1. No acute intracranial or extra-axial abnormality. 2. Multilevel degenerative changes most pronounced at C5-C6. No critical canal stenosis. Electronically signed by: Bill Meraz MD 03/07/2025 02:57 AM T Due to temporary technical issues with the PACS/[employer] reporting system, reports are being morgan d by the in-house radiologist without review as a courtesy to ensure prompt reporting the interpreting radiologist is fully responsible for the content of the report. Transcribed Date/Time: 03/07/2025 4:18 AM
[2025-03-07 05:45] VITALS: BP 118/71; TEMP 98.2; O2SAT 99
--- NOTE | 2025-03-07 06:06 | RAD REPORT ---
EXAM: XR Chest, 1 View CLINICAL HISTORY: CHEST PAIN TECHNIQUE: Frontal view of the chest. COMPARISON: No relevant prior studies available. FINDINGS: Lungs: Unremarkable. No consolidation. Pleural space: Unremarkable. No pneumothorax. Heart: Unremarkable. No cardiomegaly. Mediastinum: Unremarkable. Normal mediastinal contour. Bones/joints: Unremarkable. No acute fracture. IMPRESSION: No acute disease. Electronically signed by: Bill Meraz MD 03/07/2025 01:37 AM CDT RP Due to temporary technical issues with the PACS/[employer] reporting system, reports are being morgan d by the in-house radiologist without review as a courtesy to ensure prompt reporting the interpreting radiologist is fully responsible for the content of the report. Transcribed Date/Time: 03/07/2025 6:06 AM
--- NOTE | 2025-03-07 06:06 | RAD REPORT ---
EXAM DESCRIPTION: Shoulder Left 2+ Views CLINICAL HISTORY: 59 years Female PAIN COMPARISON: None TECHNIQUE: 2 images of the left shoulder were obtained. FINDINGS: Satisfactory articulation humeral head with glenoid fossa. Intact acromioclavicular joint. Acromiocla vicular joint measures 4 mm in transverse dimension. No fractures seen. Normal bony mineralization. No erosive or lytic lesions. No significant degenerative changes. IMPRESSION: No acute fracture or dislocation seen. No significant degenerative change. Electronically signed by: Marcela Merino MD 03/07/2025 01:32 AM CDT RP Due to temporary technical issues with the PACS/[employer] reporting system, reports are being morgan d by the in-house radiologist without review as a courtesy to ensure prompt reporting the interpreting radiologist is fully responsible for the content of the report. Transcribed Date/Time: 03/07/2025 6:06 AM
== END 2025-03-07 04:16 | disposition home or self-care (01) ==
LOC: ER 23:23
DX: M54.12 Radiculopathy, cervical region (principal)
CPT/HCPCS: 96365; 93005; 85025; 80048; 36415; 83735; 85610; 80076; 84484; 70450; 72125; 71045; 73030; 96375; 99285; 96366; J1100; J2800